=== PATIENT | male | born 1970 | race Caucasian/White ===

== ENCOUNTER → 2019-05-14 07:50 | Outpatient (BNVA) | payer OTHER, SELFPAY | PROVIDERS: PCP Nurse Practitioner Family; Visit Provider Nurse Practitioner Family | DX: Z00.00 Encounter for general adult medical examination without abnormal findings (principal); E11.9 Type 2 diabetes mellitus without complications; E78.5 Hyperlipidemia, unspecified; M54.5 Low back pain | CPT/HCPCS: 80053; 80061; 83036; 83721; 85025 ==

== ENCOUNTER 2019-10-20 09:18 | Outpatient (CLI) | payer BC, SELFPAY ==
--- NOTE | 2019-10-20 09:43 | XR_ITS ---
WS: [id number] LUMBAR SPINE TECHNIQUE: 3 views of the lumbar spine CLINICAL INFORMATION: low back pain COMPARISON: None. FINDINGS: Five [id number]-[id number] lumbar vertebral bodies. Disc space heights are well preserved. No compression f ractures. No spondylolisthesis. Visualized sacroiliac joints are normal. Normal visualized soft tissu es. Partially visualized bowel gas pattern is normal. XR/XR lumbar spine 2-3V* [id number] IMPRESSION: Normal lumbar spine.
--- NOTE | 2019-10-20 09:43 | XR_ITS ---
WS: [id number] CERVICAL SPINE TECHNIQUE: 3 views of the cervical spine CLINICAL INFORMATION: neck pain COMPARISON: None. FINDINGS: Straightening of the normal cervical lordosis. Normal C1-C2 articulation. Normal prevertebral soft ti ssues. Mild spondylitic changes. Normal dens. Normal C1-C2 articulation. XR/XR cervical spine 3V* [id number] IMPRESSION: Straightening of the normal cervical lordosis with mild spondylitic changes.
--- NOTE | 2019-10-20 09:43 | XR_ITS ---
WS: [id number] THORACIC SPINE TECHNIQUE: 3 views of the thoracic spine CLINICAL INFORMATION: mid back pain COMPARISON: None. FINDINGS: Mild thoracic curve convex left. No acute appearing compression fractures. Disc space size vertebral body heights are well-maintained. No acute thoracic spine findings. XR/XR thoracic spine 3V* [id number] IMPRESSION: Mild thoracic curve convex left. No acute thoracic spine findings.
== END 2019-10-20 09:19 | disposition home or self-care (01) ==
PROVIDERS: Family Provider Nurse Practitioner Family; PCP Nurse Practitioner Family; Visit Provider Nurse Practitioner Family
DX: M54.2 Cervicalgia (principal); M54.5 Low back pain; M54.6 Pain in thoracic spine
CPT/HCPCS: 72040; 72072; 72100

== ENCOUNTER → 2019-12-08 09:07 | Outpatient (BNVA) | payer BC, SELFPAY | PROVIDERS: Family Provider Nurse Practitioner Family; PCP Nurse Practitioner Family; Referring Provider Nurse Practitioner Family; Visit Provider Specialist | DX: G56.03 Carpal tunnel syndrome, bilateral upper limbs (principal); G56.21 Lesion of ulnar nerve, right upper limb | CPT/HCPCS: 95910 ==

== ENCOUNTER → 2019-12-09 13:13 | Outpatient (BNVA) | payer BC, SELFPAY | PROVIDERS: Family Provider Nurse Practitioner Family; PCP Nurse Practitioner Family; Visit Provider Psychiatry & Neurology Psychiatry | DX: F33.2 Major depressive disorder, recurrent severe without psychotic features (principal); F43.12 Post-traumatic stress disorder, chronic; F10.20 Alcohol dependence, uncomplicated | CPT/HCPCS: 99204 ==

== ENCOUNTER → 2020-01-06 07:35 | Outpatient (BNVA) | payer BC, SELFPAY | PROVIDERS: Family Provider Nurse Practitioner Family; PCP Nurse Practitioner Family; Visit Provider Psychiatry & Neurology Psychiatry | DX: F43.12 Post-traumatic stress disorder, chronic (principal); F33.2 Major depressive disorder, recurrent severe without psychotic features; F10.20 Alcohol dependence, uncomplicated | CPT/HCPCS: 99214 ==

== ENCOUNTER → 2020-03-10 07:49 | Outpatient (BNVA) | payer BC, SELFPAY | PROVIDERS: Family Provider Nurse Practitioner Family; PCP Nurse Practitioner Family; Visit Provider Psychiatry & Neurology Psychiatry | DX: F43.12 Post-traumatic stress disorder, chronic (principal); F33.2 Major depressive disorder, recurrent severe without psychotic features; F10.20 Alcohol dependence, uncomplicated | CPT/HCPCS: 99213 ==

== ENCOUNTER → 2020-03-15 11:07 | Outpatient (BNVA) | payer OTHER, SELFPAY | PROVIDERS: Family Provider Nurse Practitioner Family; PCP Nurse Practitioner Family; Visit Provider Nurse Practitioner Family | DX: E11.65 Type 2 diabetes mellitus with hyperglycemia (principal); M54.5 Low back pain; R10.9 Unspecified abdominal pain; G89.29 Other chronic pain; E78.5 Hyperlipidemia, unspecified; K21.9 Gastro-esophageal reflux disease without esophagitis | CPT/HCPCS: 80053; 80061; 81000; 82043; 83036; 85025 ==

== ENCOUNTER → 2020-03-18 07:54 | Outpatient (BNVA) | payer OTHER, SELFPAY | PROVIDERS: Family Provider Nurse Practitioner Family; PCP Nurse Practitioner Family; Visit Provider Counselor Mental Health | DX: F43.12 Post-traumatic stress disorder, chronic (principal); F33.2 Major depressive disorder, recurrent severe without psychotic features | CPT/HCPCS: 90834 ==

== ENCOUNTER 2020-03-25 08:16 | Outpatient (CLI) | payer OTHER, SELFPAY ==
--- NOTE | 2020-03-25 08:45 | US_ITS ---
WS: [id number] Complete ABDOMINAL ULTRASOUND HISTORY: R10.9 - Unspecified abdominal pain COMPARISON: 06/11/2012 Liver: 17.7 cm in length. Moderately enlarged liver. Moderate coarsened echotexture throughout the li page with loss of the normal portal triads. No bile duct dilatation or mass. Gallbladder: Normally distended with no gallstones, wall thickening or pericholecystic fluid. Gallbladder wall thickness: 0.2 cm. Pancreas: Normal size and echogenicity. CBD: 0.2 cm. Right kidney: 12.0 cm x 6.1 cm x 6.3 cm. No mass, cortical thickening or hydronephrosis. Left kidney: 12.5 cm x 5.9 cm x 6.4 cm. No mass, cortical thickening or hydronephrosis. Spleen: Normal size and echogenicity. Abdominal aorta and IVC are within normal limits. No ascites. US/US abdomen complete* [id number] IMPRESSION: 1. Study is somewhat limited by body habitus. 2. Negative gallbladder. 3. Moderate hepatomegaly with additional changes of hepatocellular disease or steatosis.
== END 2020-03-25 08:17 | disposition home or self-care (01) ==
LOC: RAD 08:21
PROVIDERS: PCP Nurse Practitioner Family; Visit Provider Nurse Practitioner Family
DX: R10.9 Unspecified abdominal pain (principal); R16.0 Hepatomegaly, not elsewhere classified
CPT/HCPCS: 76700

== ENCOUNTER → 2020-03-26 08:29 | Outpatient (BNVA) | payer OTHER, SELFPAY | PROVIDERS: Family Provider Nurse Practitioner Family; PCP Nurse Practitioner Family; Visit Provider Counselor Mental Health | DX: F43.12 Post-traumatic stress disorder, chronic (principal); F33.2 Major depressive disorder, recurrent severe without psychotic features | CPT/HCPCS: 90834 ==

== ENCOUNTER → 2020-04-02 08:42 | Outpatient (BNVA) | payer OTHER, SELFPAY | PROVIDERS: Family Provider Nurse Practitioner Family; PCP Nurse Practitioner Family; Visit Provider Counselor Mental Health | DX: F43.12 Post-traumatic stress disorder, chronic (principal); F33.2 Major depressive disorder, recurrent severe without psychotic features | CPT/HCPCS: 90832 ==

== ENCOUNTER → 2020-04-07 08:20 | Outpatient (BNVA) | payer OTHER, SELFPAY | PROVIDERS: Family Provider Nurse Practitioner Family; PCP Nurse Practitioner Family; Visit Provider Counselor Mental Health | DX: F43.12 Post-traumatic stress disorder, chronic (principal); F33.2 Major depressive disorder, recurrent severe without psychotic features | CPT/HCPCS: 90832 ==

== ENCOUNTER 2020-04-26 07:14 | Outpatient (CLI) | payer OTHER, SELFPAY ==
--- NOTE | 2020-04-26 07:18 | NM_ITS ---
WS: [id number] NUCLEAR MEDICINE HIDA SCAN CLINICAL INFORMATION: R10.10 - Upper abdominal pain, unspecified TECHNIQUE: Following intravenous administration of mCi of technetium 99m mebrofenin, images of the ab domen were obtained over the course of 60 minutes. Next, gallbladder ejection fraction was determined by obtaining preprandial and one-hour postprandial images of the gallbladder following oral ingestio n of Ensure. COMPARISON: None. FINDINGS: Normal hepatic uptake at 5 minutes. Gallbladder is visualized by 10 minutes. No evidence of acute cho lecystitis. Normal common bile duct and small bowel activity. No evidence of acute cholecystitis. No evidence of choledocholithiasis. Normal bladder ejection fraction 83% within normal limits. No evidence of chronic cholecystitis. NM/NM hepatobiliary w phar* [id number] IMPRESSION: 1. No evidence of acute or chronic cholecystitis. 2. Normal gallbladder ejection fraction 83% within normal limits.
--- NOTE | 2020-04-26 07:29 | XR_ITS ---
WS: [id number] Exam: XR lumbar spine 2-3V* [id number] Date/Time of Exam: 04/26/2020 8:55 AM Reason For Exam: M54.5 - Low back pain Comparison 10/20/2019. No fracture or dislocation. Spondylosis noted. Facet DJD at all levels. Disc spaces are relatively we ll maintained. Spinous and transverse processes are intact. XR/XR lumbar spine 2-3V* [id number] IMPRESSION: 1. Degenerative changes. No fracture or malalignment.
== END 2020-04-26 07:15 | disposition home or self-care (01) ==
LOC: NM 07:15
PROVIDERS: PCP Nurse Practitioner Family; Visit Provider Nurse Practitioner Family
DX: R10.10 Upper abdominal pain, unspecified (principal); M54.5 Low back pain
CPT/HCPCS: 72100; 78227; A9537

== ENCOUNTER → 2020-04-29 07:37 | Outpatient (BNVA) | payer OTHER, SELFPAY | PROVIDERS: Family Provider Nurse Practitioner Family; PCP Nurse Practitioner Family; Visit Provider Counselor Mental Health | DX: F43.12 Post-traumatic stress disorder, chronic (principal); F33.2 Major depressive disorder, recurrent severe without psychotic features; F10.20 Alcohol dependence, uncomplicated; F22 Delusional disorders | CPT/HCPCS: 90832 ==

== ENCOUNTER → 2020-05-17 09:41 | Outpatient (BNVA) | payer OTHER, SELFPAY | PROVIDERS: Family Provider Nurse Practitioner Family; PCP Nurse Practitioner Family; Visit Provider Psychiatry & Neurology Psychiatry | DX: F41.1 Generalized anxiety disorder (principal); F43.12 Post-traumatic stress disorder, chronic; F33.2 Major depressive disorder, recurrent severe without psychotic features; M54.5 Low back pain; F10.20 Alcohol dependence, uncomplicated | CPT/HCPCS: 99214 ==

== ENCOUNTER 2020-06-16 06:00 | Outpatient (RCR) | payer OTHER, SELFPAY | END 2020-07-02 23:59 | disposition home or self-care (01) | LOC: APT 06:00 | PROVIDERS: Family Provider Nurse Practitioner Family; PCP Nurse Practitioner Family; Referring Provider Nurse Practitioner Family; Visit Provider Nurse Practitioner Family | DX: M54.5 Low back pain (principal); G89.29 Other chronic pain | CPT/HCPCS: 97161 ==

== ENCOUNTER 2020-06-30 08:43 | Outpatient (CLI) | payer OTHER, SELFPAY ==
[2020-06-30] MEDS: iohexol 300 mg/mL 50 mL Btl PO (09:12)
[2020-06-30] MEDS: iohexol 300 mg/mL 100 mL Btl IV (09:29)
--- NOTE | 2020-06-30 09:30 | CT_ITS ---
WS: [id number] CT ABDOMEN CONTRAST TECHNIQUE: Contrast enhanced CT of the abdomen with coronal and sagittal reformatted images. CLINICAL INFORMATION: R10.10 - Upper abdominal pain, unspecified COMPARISON: None. DLP: 853.[address] scans at [facility] use at least one of these dose optimization techniques: automat ed exposure control; mA and/or kV adjustment per patient size (includes targeted exams where dose is matched to clinical indication); or iterative reconstruction. FINDINGS: Mild hepatomegaly. Diffuse fatty infiltration liver. Normal gallbladder. Normal portal vein and splen ic vein. Normal GE junction. Normal spleen. Lung bases are well aerated. Adrenal glands are normal. N ormal left renal parenchymal enhancement. Heterogeneously enhancing right renal mass measuring 3.5 x 3.7 x 2.5 cm suspicious for renal cell carcinoma. No hydronephrosis in either kidney. Both ureters ar e decompressed. No abdominal lymphadenopathy. Fat-containing umbilical hernia. CT/CT abdomen w con* [id number] IMPRESSION: 1. Hepatomegaly with diffuse fatty infiltration the liver. 2. Heterogeneously enhancing right renal mass suspicious for renal cell carcin angie in the dorsal upper pole right kidney. This measures approximately 3.5 x 3. 5 x 2.5 CM. Recommend urology consultation. 3. Normal gallbladder. 4. No abdominal lymphadenopathy. 5. Incidental tiny fat-containing buckle hernia.
== END 2020-06-30 08:44 | disposition home or self-care (01) ==
PROVIDERS: PCP Nurse Practitioner Family; Visit Provider Nurse Practitioner Family
DX: R10.10 Upper abdominal pain, unspecified (principal); K76.0 Fatty (change of) liver, not elsewhere classified; R16.0 Hepatomegaly, not elsewhere classified
CPT/HCPCS: 74160; 80053; 80061; 83036; 83721; Q9967

== ENCOUNTER → 2020-07-16 10:02 | Outpatient (BNVA) | payer OTHER, SELFPAY | PROVIDERS: Family Provider Nurse Practitioner Family; PCP Nurse Practitioner Family; Visit Provider Psychiatry & Neurology Psychiatry | DX: F41.1 Generalized anxiety disorder (principal); F10.20 Alcohol dependence, uncomplicated; F43.12 Post-traumatic stress disorder, chronic; F33.2 Major depressive disorder, recurrent severe without psychotic features; M54.5 Low back pain | CPT/HCPCS: 99214 ==

== ENCOUNTER → 2020-09-13 11:09 | Outpatient (BNVA) | payer OTHER, SELFPAY | PROVIDERS: Family Provider Nurse Practitioner Family; PCP Nurse Practitioner Family; Visit Provider Nurse Practitioner Family | DX: E11.65 Type 2 diabetes mellitus with hyperglycemia (principal); M54.5 Low back pain; G89.29 Other chronic pain; F41.1 Generalized anxiety disorder; K21.9 Gastro-esophageal reflux disease without esophagitis; E78.5 Hyperlipidemia, unspecified; R53.83 Other fatigue; N28.89 Other specified disorders of kidney and ureter | CPT/HCPCS: 80053; 80061; 82306; 82607; 83036; 84403; 84443; 85025 ==

== ENCOUNTER → 2020-09-28 12:02 | Outpatient (BNVA) | payer OTHER, SELFPAY | PROVIDERS: Family Provider Nurse Practitioner Family; PCP Nurse Practitioner Family; Visit Provider Urology | DX: N28.89 Other specified disorders of kidney and ureter (principal) | CPT/HCPCS: 80053; 81003; 85025; 87086 ==

== ENCOUNTER → 2020-10-08 09:39 | Outpatient (BNVA) | payer OTHER, SELFPAY | PROVIDERS: Family Provider Nurse Practitioner Family; PCP Nurse Practitioner Family; Visit Provider Urology | DX: Z20.822 Contact with and (suspected) exposure to COVID-19 (principal) | CPT/HCPCS: 87635 ==

== ENCOUNTER 2020-11-23 13:14 | Outpatient (CLI) | payer OTHER, SELFPAY ==
--- NOTE | 2020-11-23 13:20 | XR_ITS ---
WS: [id number] KUB, AP view, 11/23/2020 Clinical Data: R31.9 - Hematuria, unspecified Comparison: None Findings: No abnormal intraabdominal masses or calcifications are seen. There is no dilatated small bowel or ev idence of obstruction. There are radiopaque coils overlying the right kidney which may be from an interventional radiology t reatment of a renal cell carcinoma.. XR/XR KUB [id number] Impression: Radiopaque coils overlying right kidney.
[2020-11-23 14:00] LABS: Basophils # 0.1 10^3/uL (0.0-0.1); Basophils % 0.8 %; Eosinophils # 0.1 10^3/uL (0.0-0.8); Eosinophils % 1.4 %; Hematocrit 36.9 % (42.0-52.0); Hemoglobin 12.3 g/dL (11.7-16.6); Lymphocytes # 1.7 10^3/uL (0.8-4.8); Lymphocytes % 26.2 %; Mean Corpuscular HGB Conc 33.3 g/dL (30.0-36.0); Mean Corpuscular Hemoglobin 29.6 pg (28.0-34.0); Mean Corpuscular Volume 88.9 fl (80-94); Mean Platelet Volume 9.7 fL (7.4-10.4); Monocytes # 0.5 10^3/uL (0.2-0.9); Monocytes % 8.4 %; Neutrophils # 4.06 10^3/uL (1.8-7.7); Neutrophils % 62.9 %; Nucleated Red Blood Cells % 0 %; Platelet Count 224 10^3/cmm (130-400); Red Blood Count 4.15 10^6/uL (4.1-5.3); Red Cell Distribution Width 12.6 % (12.1-15.1); White Blood Count 6.5 10^3/uL (4.0-10.0)
[2020-11-23 14:09] LABS: Estmated Average Glucose 126
[2020-11-23 14:46] LABS: Blood Urine 3+ (Negative); Glucose Urine UA Norm (Normal); Ketones Urine Negative (Negative); Protein Urine Neg (Negative); Specific Gravity, Urine 1.015 (1.005-1.030); Urine Appearance Hazy (CLEAR); Urine Color Yellow (Yellow); pH Urine 5 (5-7)
[2020-11-23 14:47] LABS: Add Urine Culture? No; Bacteria Urine TRACE /hpf; Bilirubin Urine Neg (Negative); Leukocyte Esterase Urine Negative (Negative); Nitrate Urine Negative (Negative); RBC Urine 0-4 /hpf (0-2); Squamous Epithelial Cell Urine 0-4 /hpf (0-5); Urobilinogen Urine Norm (Negative)
[2020-11-23 14:53] LABS: Vitamin B12 319 pg/mL (232-1245)
[2020-11-23 14:54] LABS: 25 Hydroxy Vitamin D 30 ng/mL (30-100); Alanine Aminotransferase 6 U/L (0-41); Albumin Level 4.2 g/dL (3.5-5.2); Alkaline Phosphatase 81 IU/L (40-130); Anion Gap 13.7 (5-19); Aspartate Amino Transferase 9 U/L (0-40); Blood Urea Nitrogen 16 mg/dL (6-20); Calcium 9.2 mg/dL (8.5-10.5); Carbon Dioxide 27 mmol/L (22-29); Chloride 99 mmol/L (98-107); Chol HDL Ratio 4.66 mg/dL (1.0-5.00); Cholesterol 163 mg/dL (0-200); Globulin 2.8 g/dL (1.3-4.6); Glomerular Filtration Rate 53.9 mL/min (90-130); Glucose 197 mg/dL (65-115); HDL Cholesterol 35 mg/dL (60-100); LDL Cholesterol Calculated 77 mg/dL (50-129); Osmolality Calculated 287 mOsm/kg (285-295); Potassium 4.7 mmol/L (3.5-5.1); Sodium 135 mmol/L (136-145); Thyroid Stimulating Hormone 1.31 uIU/mL (0.27-4.20); Total Bilirubin 0.2 mg/dL (0.15-1.2); Triglycerides 256 mg/dL (0-150)
== END 2020-11-23 13:15 | disposition home or self-care (01) ==
PROVIDERS: PCP Nurse Practitioner Family; Visit Provider Nurse Practitioner Family
DX: R31.9 Hematuria, unspecified (principal)
CPT/HCPCS: 36415; 74018; 80053; 80061; 81001; 81003; 82306; 82607; 83036; 84443; 85025; 87086

== ENCOUNTER → 2020-12-27 09:33 | Outpatient (BNVA) | payer OTHER, SELFPAY | PROVIDERS: PCP Nurse Practitioner Family; Visit Provider Urology | DX: Z01.812 Encounter for preprocedural laboratory examination (principal); Z20.822 Contact with and (suspected) exposure to COVID-19 | CPT/HCPCS: 87635 ==

== ENCOUNTER → 2021-01-07 09:21 | Outpatient (BNVA) | payer OTHER, SELFPAY | PROVIDERS: PCP Nurse Practitioner Family; Visit Provider Nurse Practitioner Family | DX: R31.9 Hematuria, unspecified (principal); N28.89 Other specified disorders of kidney and ureter | CPT/HCPCS: 80053; 81003; 87086; 87106 ==

== ENCOUNTER 2021-03-04 16:12 | Emergency (ER) | payer OTHER, SELFPAY ==
[2021-03-04 16:20] VITALS: BP 145/76; PULSE 65; RESP 26; TEMP 36.7; O2SAT 84; BMI 30.7
[2021-03-04 16:24] VITALS: O2SAT 94
[2021-03-04] MEDS: ondansetron 2 mg/ML SDV 2 mL 4 MG IVP (17:23)
[2021-03-04] MEDS: sodium chloride 0.9% 1,000 ML 999 ML IV ×2 (17:23→19:50)
[2021-03-04 18:00] VITALS: O2SAT 86
--- NOTE | 2021-03-04 18:57 | XRR_ITS ---
PROCEDURE INFORMATION: Exam: XR Chest Exam date and time: 03/04/2021 6:57 PM Age: 50 years old Clinical indication: Cough and shortness of breath; Patient HX: Dyspnea; Short of breath TECHNIQUE: Imaging protocol: XR of the chest. Views: 1 view. COMPARISON: CR XR KUB [id number] 11/23/2020 1:28 PM FINDINGS: Lungs: Multifocal peripheral airspace opacities are noted in the lungs concerning for pneumonic infiltrates including COVID-19 pneumonia. Pleural spaces: Unremarkable. No pleural effusion. No pneumothorax. Heart/Mediastinum: The heart is enlarged. Bones/joints: No acute abnormality. Mild dextroscoliosis. XR/XR chest 1V portable [id number] IMPRESSION: Multifocal peripheral airspace opacities are noted in the lungs concerning for pneumonic infiltrates including COVID-19 pneumonia.
[2021-03-04 19:04] LABS: Basophils % 0.1 %; Hematocrit 40.1 % (42.0-52.0); Hemoglobin 13.8 g/dL (11.7-16.6); Lymphocytes # 0.6 10^3/uL (0.8-4.8); Lymphocytes % 7.5 %; Mean Corpuscular HGB Conc 34.4 g/dL (30.0-36.0); Mean Corpuscular Volume 84.2 fl (80-94); Monocytes # 0.4 10^3/uL (0.2-0.9); Monocytes % 4.2 %; Neutrophils # 7.38 10^3/uL (1.8-7.7); Neutrophils % 87.5 %; Nucleated Red Blood Cells % 0 %; Platelet Count 223 10^3/cmm (130-400); Red Blood Count 4.76 10^6/uL (4.1-5.3); Red Cell Distribution Width 12.4 % (12.1-15.1); White Blood Count 8.4 10^3/uL (4.0-10.0)
[2021-03-04 19:17] LABS: Anion Gap 20.4 (5-19); Blood Urea Nitrogen 24 mg/dL (6-20); Calcium 8.2 mg/dL (8.5-10.5); Carbon Dioxide 20 mmol/L (22-29); Chloride 91 mmol/L (98-107); Glomerular Filtration Rate 53.9 mL/min (90-130); Glucose 292 mg/dL (65-115); Osmolality Calculated 279 mOsm/kg (285-295); Potassium 4.4 mmol/L (3.5-5.1); Sodium 127 mmol/L (136-145)
[2021-03-04 19:48] LABS: Adenovirus Not Detected (NOT DETECT); Chlamydia Pneumoniae Not Detected (NOT DETECT); Coronavirus 229E,HKU1,NL63,OC4 Not Detected (NOT DETECT); Human Metapneumovirus Not Detected (NOT DETECT); Human Rhinovirus/Enterovirus Not Detected (NOT DETECT); Influenza A Not Detected (NOT DETECT); Influenza A H1 Not Detected (NOT DETECT); Influenza A H1-2009 Not Detected (NOT DETECT); Influenza A H3 Not Detected (NOT DETECT); Influenza B Not Detected (NOT DETECT); Mycoplasma Pneumoniae Not Detected (NOT DETECT); Parainfluenza Virus Type 1 Not Detected (NOT DETECT); Parainfluenza Virus Type 2 Not Detected (NOT DETECT); Parainfluenza Virus Type 3 Not Detected (NOT DETECT); Parainfluenza Virus Type 4 Not Detected (NOT DETECT); Respiratory Syncytial Virus A Not Detected (NOT DETECT); Respiratory Syncytial Virus B Not Detected (NOT DETECT); SARS-COV-2 Detected (NOT DETECT)
--- NOTE | 2021-03-04 20:03 | W.ED.GENADLT ---
HPI - General Adult General: Chief complaint: COVID symptoms Stated complaint: NO TASTE OR SMELL, N/V, SOB, DIARRHEA Time Seen by Provider: 03/04/21 17:13 History of Present Illness: HPI narrative: CC: Shortness of breath, fever and generalized weakness HPI: This is a [50]yo patient w/ hx of HTN, presenting to the ED with malaise, generalized weakness, cough sputum production, and fever at home x 10days. Since onset of symptoms, has had some shortness of breath and decreased PO intake. NO recent travel. Endorses no sick contacts around. Reports mild nausea, denies vomiting and diarrhea. Patient reports mild decreased appetite. Denies chest pain, diaphoresis, other GI or complaints. Denies any pleuritic chest pain, recent surgery/immobilization/travel, or hematemesis or hx of VTE in the past. Onset: 10 days ago Duration: ongoing for the last 10 days Location: home Severity: moderate Review of Systems Narrative: Constitutional: +subjective fever, +generalized weakness HEENT: No vision changes CV: No chest pain, no palpitations PULM: +cough, +dyspnea. GI: No abdominal pain, +N/-V/-D. : No dysuria MSKEL: No muscle pain SKIN: No new rashes, no lesions. NEURO: No headache, no focal weakness. HEME: No visible bruises PSYCH: Normal mood PFSH ED PFSH: Medical History (Updated 03/04/21 @ 19:57 by Manuela Hunter MD) Diabetes mellitus GERD (gastroesophageal reflux disease) Hyperlipidemia Psychiatric care Renal mass Surgical History Hx of rotator cuff surgery (~2009) Family History Family/Other Diabetes Hypertension Heart disease Social History Quit status (tobacco): has quit using tobacco Year quit tobacco: a long time Second hand smoke exposure: Yes Alcohol intake: never Lives independently: Yes Household members: spouse Marital status: 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 History of recent travel: No Current gender identity: Male Physical Exam Narrative: EXAM NARRATIVE: Head: Atraumatic Eyes: PERRL, conjunctiva without injection ENT: Mucous membrane moist NECK: Supple without lymphadenopathy LUNGS: Coarse lung sounds CV: RRR ABDOMEN: Soft, nontender EXTREMITY: Normal ROM SKIN: No rash or erythema NEURO: Awake and alert. No focal motor deficits. PSYCH: Normal mood and affect. Course Vital Signs: Vital signs: Vital Signs Temperature 98.1 F 03/04/21 16:20 Pulse Rate 65 03/04/21 16:20 Respiratory Rate 26 H 03/04/21 16:20 Blood Pressure 145/76 03/04/21 16:20 Pulse Oximetry 86 L 03/04/21 18:00 MDM - General Adult MDM Narrative: Medical decision making narrative: [50]yo patient presenting to the ED with shortness of breath, cough, and malaise concerning for COVID pneumonia. Given History, Exam, and Workup presentation most consistent with pneumonia.Presentation not consistent with PE, COPD exacerbation, Pneumothorax, TB, Atypical ACS, Esophageal Rupture, Toxic Exposure, Foreign Body Airway Obstruction. Workup: CXR Chest, COVID PCR, basic blood work Intervention: Tylenol 1gram, PO challenge, serial reassessment, oxygen, decadron [8:59pm] On reassessment, XR findings of ground-glass opacity. Findings consistent with COVID. Afebrile currently. Patient continues to sat at 95% on 5?L oxygen. Given concerns for possible respiratory decompensation, I have offered patient admission for serial/close observation in the emergency room. Cr of 1.4 likely VERNON. Patient received 2L of IVF. At [8:06pm], patient declined admission citing strong desire to go home on home oxygen. I have discussed the risks of leaving hospital today including risks of sudden pulmonary decompensation leading to severe respiratory distress and even . Patient verbalizes understanding the consequence of the risks of leaving the hospital today and alternative including staying for serial observation. I have offered patient outpatient oxygen tank/supply and portable pulse ox with proper instruction to use at home. Patient agrees to monitor oxygen saturation and to come back to the ED if there is any drops in pulse ox reading despite oxygen use. In addition, I have given patient strict follow up with PCP in 48-72 hrs for reevalutaion. Patient verbalizes understanding of all components of our discussion today and reassures me of follow up with PCP closely and will come back if his number worsens. I have given patient follow up with our manager professional development to be seen by a PCP in the next 48-72 hrs. Patient aware of a call from our manager professional development to schedule for appointment(s) and verbalizes understanding of the importance of following up. Rx tylenol PRN fever/pain, zofran PRN nausea/vomiting, maalox and pepcid PRN dyspepsia, prednisone 50mg x 5 days for covid Disposition: Discharge. Patient is given strict return precautions for any worsening dypsnea, changes in pulse ox numbers, any worsening fatigue, dehydration, generalized weakness, altered mental status, or any new or concerning issues. Lab Data: Labs: Lab Results 03/04/21 03/04/21 03/04/21 17:08 17:08 17:20 WBC 8.4 10^3/uL 10^3/ uL (4.0-10.0) RBC 4.76 10^6/uL 10^6 /uL (4.1-5.3) Hgb 13.8 g/dL g/dL (11.7-16.6) Hct 40.1 % L % (42.0-52.0) MCV 84.2 fl fl (80-94) MCH 29.0 pg pg (28.0-34.0) MCHC 34.4 g/dL g/dL (30.0-36.0) RDW 12.4 % % (12.1-15.1) Plt Count 223 10^3/cmm 10^3 /cmm (130-400) MPV 12.0 fL H fL (7.4-10.4) Neut % (Auto) 87.5 % % Lymph % (Auto) 7.5 % % Mason % (Auto) 4.2 % % Eos % (Auto) 0.0 % % Baso % (Auto) 0.1 % % Neut # (Auto) 7.38 10^3/uL 10^3 /uL (1.8-7.7) Lymph # (Auto) 0.6 10^3/uL L 10^ 3/uL (0.8-4.8) Mason # (Auto) 0.4 10^3/uL 10^3/ uL (0.2-0.9) Eos # (Auto) 0.0 10^3/uL 10^3/ uL (0.0-0.8) Baso # (Auto) 0.0 10^3/uL 10^3/ uL (0.0-0.1) Nucleated RBC % (a uto) 0 % % Nucleated RBCs # 0.0 /100WBC /100W BC Sodium 127 mmol/L L mmol /L (136-145) Potassium 4.4 mmol/L mmol/L (3.5-5.1) Chloride 91 mmol/L L mmol/ L (98-107) Carbon Dioxide 20 mmol/L L mmol/ L (22-29) Anion Gap 20.4 H (5-19) BUN 24 mg/dL H mg/dL (6-20) Creatinine 1.4 mg/dL H mg/dL (0.7-1.2) GFR Calculation 53.9 mL/min L mL/ min (90-130) Glucose 292 mg/dL H mg/dL (65-115) Calculated Osmolal ity 279 mOsm/kg L mOs m/kg (285-295) Calcium 8.2 mg/dL L mg/dL (8.5-10.5) Coronavirus 229E ( PCR) Not detected (NOT DETECT) SARS-CoV-2 (PCR) Detected A (NOT DETECT) Imaging Data^: Other Imaging: Radiologist's impression: [address] [id number] ReportSigned Patient: Chau Mauricio #: [id number]: 1970Acct#:[id number]/Sex: 50 / MADM Date: 03/04/21[facility]Attending Dr: Ordering Provider/Ordering MD: Manuela Hunter MD Date of Service: 03/04/21 Procedure(s): XR chest 1V portable [id number] Accession Number(s): [id number] Report Number: [id number] PROCEDURE INFORMATION: Exam: XR Chest Exam date and time: 03/04/2021 6:57 PM Age: 50 years old Clinical indication: Cough and shortness of breath; Patient HX: Dyspnea; Short of breath TECHNIQUE: Imaging protocol: XR of the chest. Views: 1 view. COMPARISON: CR XR KUB [id number] 11/23/2020 1:28 PM FINDINGS: Lungs: Multifocal peripheral airspace opacities are noted in the lungs concerning for pneumonic infiltrates including COVID-19 pneumonia. Pleural spaces: Unremarkable. No pleural effusion. No pneumothorax. Heart/Mediastinum: The heart is enlarged. Bones/joints: No acute abnormality. Mild dextroscoliosis. XR/XR chest 1V portable [id number] IMPRESSION: Multifocal peripheral airspace opacities are noted in the lungs concerning for pneumonic infiltrates including COVID-19 pneumonia. Dictated By:Jimmy Hollingsworthigned By:Megan Hollingsworth Date/Time:03/04/211948DD/ 56 Discharge Plan Discharge Patient Disposition: Home Clinical Impression: Cough, Dyspnea, Generalized weakness, Diarrhea Condition: Stable Prescriptions: New acetaminophen 500 mg tablet 500 mg PO Q6H PRN (Reason: pain) 5 Days Qty: 20 RF: 0 Zofran 4 mg tablet 4 mg PO TID PRN (Reason: nausea and vomiting) 4 Days Qty: 12 RF: 0 Pepcid 20 mg tablet 20 mg PO BID PRN (Reason: abdominal pain) 10 Days Qty: 20 RF: 0 prednisone 50 mg tablet 50 mg PO DAILY 5 Days Qty: 5 RF: 0 No Action metformin 1,000 mg tablet See Rx Instructions .ROUTE .COMPLEX Qty: 60 RF: 2 lidocaine 5 % adhesive patch,medicated 1 patch topical DAILY Qty: 30 RF: 2 bupropion HCl [Wellbutrin XL] 300 mg tablet extended release 24 hr 300 mg PO QAM Qty: 30 RF: 2 buspirone 5 mg tablet 5 mg PO TID Qty: 90 RF: 2 fluoxetine [Prozac] 40 mg capsule 80 mg PO QAM Qty: 60 RF: 2 hydroxyzine HCl 50 mg tablet 50 mg PO QID PRN (Reason: anxiety) Qty: 120 RF: 2 prazosin 5 mg capsule 5 mg PO .HS Qty: 30 RF: 2 propranolol 20 mg tablet 20 mg PO TID PRN (Reason: anxiety) Qty: 90 RF: 2 trazodone 100 mg tablet 300 mg PO .HS Qty: 90 RF: 2 diclofenac sodium 75 mg tablet,delayed release (DR/EC) 75 mg PO BID PRN (Reason: pain) Qty: 60 RF: 5 cyclobenzaprine 10 mg tablet 10 mg PO TID PRN (Reason: muscle spasm) Qty: 30 RF: 0 mupirocin 2 % ointment 1 applic topical BID Qty: 22 RF: 0 oxybutynin chloride 5 mg tablet 5 mg PO TID RF: 0 tramadol 50 mg tablet 50 mg PO TID PRN (Reason: pain) 30 Days Qty: 60 RF: 0 (DME) four point cane See Rx Instructions .Route .MEDSUPPLY Qty: 1 RF: 0 (DME) catheter leg bags regular and large See Rx Instructions .Route .MEDSUPPLY Qty: 10 RF: 0 omega-3 acid ethyl esters [Lovaza] 1 gram capsule 2 cap PO BID 30 Days Qty: 120 RF: 2 Jardiance 25 mg tablet See Rx Instructions .ROUTE .COMPLEX Qty: 30 RF: 2 glipizide 10 mg tablet See Rx Instructions .ROUTE .COMPLEX Qty: 60 RF: 2 gemfibrozil 600 mg tablet See Rx Instructions .ROUTE .COMPLEX Qty: 30 RF: 2 esomeprazole magnesium 40 mg capsule,delayed release(DR/EC) See Rx Instructions .ROUTE .COMPLEX Qty: 30 RF: 2 lovastatin 20 mg tablet See Rx Instructions .ROUTE .COMPLEX Qty: 30 RF: 2 fluconazole [Diflucan] 150 mg tablet 150 mg PO DAILY Qty: 1 RF: 0 Discharge Orders: Discharge ED (Routine); Ordered 03/04/21 Ordered By: Manuela Hunter Other Ambulatory Orders: DME: Oxygen (Order) Location: None Selected Ordered By: Manuela Hunter Referrals: Clare Holm, APPLICATION SECURITY ARCHITECT [Primary Care Provider] - Discharge Diet: Advance as tolerated Discharge Activity: Resume usual activity Patient Instructions: COVID-19 (Coronavirus Disease 2019) (ED) Activity Restrictions/Additional Instructions: Come back to the emergency room if your symptoms worsen, have any shortness of breath, fever/chills, dehydration, inability tolerate p.o., any difficulty breathing, or any new or concerning complaints. Please return the emergency room if your pulse ox reads less than 90% while you are on 5L of NC. Coding Level of Care Code ED Editing Computer Publisher for Vicky Shi
[2021-03-04] MEDS: dexamethasone 10 mg/mL INJ 6 MG IVP (21:15)
[2021-03-04 21:51] VITALS: BP 153/78; PULSE 78; RESP 18; O2SAT 94
== END 2021-03-04 21:53 | disposition home or self-care (01) ==
PROVIDERS: Emergency Provider Emergency Medicine; PCP Nurse Practitioner Family
DX: U07.1 COVID-19 (principal); Z79.84 Long term (current) use of oral hypoglycemic drugs; E11.9 Type 2 diabetes mellitus without complications; E78.5 Hyperlipidemia, unspecified; Z87.891 Personal history of nicotine dependence
CPT/HCPCS: 71045; 80048; 85025; 87635; 96361; 96374; 96375; 99283; J1100; J2405; J7030

== ENCOUNTER 2021-03-06 10:57 | Inpatient (IN) | payer OTHER, SELFPAY ==
[2021-03-06] VITALS (13 sets, daily range): BP systolic 143–166; BP diastolic 75–79; PULSE 51–74; RESP 16–24; TEMP 37.1; O2SAT 70–97; BMI 30.4; BMI 31.8
--- NOTE | 2021-03-06 11:10 | W.ED.SOB ---
HPI - SOB/Dyspnea General: Chief Complaint: COVID symptoms Stated Complaint: DIFF BREATHING/ COVID + Time Seen by Provider: 03/06/21 11:10 History of Present Illness: HPI Narrative: Mr. Mauricio is a 50-year-old gentleman with significant past medical history of hypertension, hyperlipidemia, diabetes, and psychiatric disorder presents to the emergency department due to shortness of breath. Symptom onset was a little after 2 weeks ago. He initially had fairly typical Covid symptoms and has tested positive for Covid. He endorses starting symptoms of headache, body aches, subjective fevers chills, diarrhea, cough, and shortness of breath. At maximal intensity symptoms were moderate to severe. Most of his symptoms subsequently improved with the past few days with exception of shortness of breath. He was seen in the emergency department on 03/04 and discharged with significant requirement home oxygen at that time secondary to hypoxemia in the context of Covid pneumonia. His shortness of breath has continued to worsen. He still has nonproductive cough. He describes marked dyspnea with minimal exertion. No other significant change to health, exacerbating, or alleviating factors identified. Review of Systems General: Reports: 10 or more systems reviewed and unremarkable except in HPI and below PFSH ED PFSH: Medical History Diabetes mellitus GERD (gastroesophageal reflux disease) Hyperlipidemia Psychiatric care Renal mass Surgical History Hx of rotator cuff surgery (~2009) Family History Family/Other Diabetes Hypertension Heart disease Social History Quit status (tobacco): has quit using tobacco Year quit tobacco: a long time Second hand smoke exposure: Yes Alcohol intake: never Lives independently: Yes Household members: spouse Marital status: 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 Eyes - PERRL, no conjunctival injection ENMT - Atraumatic external nose and ears. Dry mucous membranes NECK - supple. trachea midline CARDIOVASCULAR - bradycardic rate and regular rhythm. Normal peripheral perfusion. No peripheral edema RESPIRATORY - coarse to auscultation bilaterally worse on the right. Tachypnea at rest. Patient hypoxemic at approximately 70% on room air. Increased work of breathing present which becomes marked with minimal exertion. ABDOMEN/GI - Nontender/Nondistended. MSK - Extremities without obvious deformity or tenderness to palpation SKIN - Warm, Dry NEURO - alert and appropriately oriented. Moves all extremities equally. Course ED course: - Patient was seen and evaluated by me at bedside - Patient placed on cardiac monitors, IV access obtained - Initial evaluation notable for ill appearance as above, supplemental oxygen in place. Patient reports inability to breathe through his nose chronically and therefore will be left on nonrebreather mask at 15 L/min. - Labs notable for no leukocytosis or other significant hematologic abnormality. Metabolic panel notable for likely dehydration with low sodium, chloride, decreased bicarb and mildly increased anion gap. Procalcitonin is negative. Troponin is negative with greater than 6 hours of symptoms. - Imaging notable for bilateral opacities consistent with Covid pneumonia, similar to prior x-ray - Upon serial reexamination after treatment the patient was similar - Based on patient history, evaluation, labs, and imaging as interpreted the most likely cause of the patient's condition is Covid pneumonia with hypoxemia - The results of ED evaluation were discussed with the patient including plan for admission due to requirement for level of care not available if discharged to prevent significant worsening/deterioration. - Hospitalist service contacted and agreed admit the patient. After discussion remdesivir and Decadron ordered. D-dimer ordered and pending at time of admission to be followed up by admitting physician. - Patient was admitted without further deterioration or significant events. Vital Signs: Vital signs: Vital Signs Temperature 97.8 F 03/10/21 15:24 Pulse Rate 107 H 03/10/21 15:55 Respiratory Rate 18 03/10/21 15:52 Blood Pressure 114/71 03/10/21 15:24 Pulse Oximetry 96 03/10/21 15:52 MDM - SOB/Dyspnea MDM Narrative: Medical decision making narrative: History of Covid with new oxygen requirement. Roughly 2 weeks of symptoms overall with most typical Covid symptoms improving however shortness of breath persisting. Seen previously and trialed on home oxygen. Marked dyspnea on exertion, failed to improve after previously being seen. Warrants inpatient admission for Covid pneumonia with acute hypoxic respiratory failure requiring 15 L with no history of baseline oxygen requirement.. Medical Records: Attestation: I reviewed the patient's medical records. Lab Data: Attestation: I reviewed the patient's lab results. Labs: Lab Results 03/06/21 03/06/21 03/06/21 11:10 11:28 11:28 WBC 9.2 10^3/uL 10^3/ uL (4.0-10.0) RBC 4.72 10^6/uL 10^6 /uL (4.1-5.3) Hgb 13.6 g/dL g/dL (11.7-16.6) Hct 39.4 % L % (42.0-52.0) MCV 83.5 fl fl (80-94) MCH 28.8 pg pg (28.0-34.0) MCHC 34.5 g/dL g/dL (30.0-36.0) RDW 12.3 % % (12.1-15.1) Plt Count 278 10^3/cmm 10^3 /cmm (130-400) MPV 10.6 fL H fL (7.4-10.4) Neut % (Auto) 85.9 % % Lymph % (Auto) 6.7 % % [place] % (Auto) 6.8 % % Eos % (Auto) 0.0 % % Baso % (Auto) 0.1 % % Neut # (Auto) 7.87 10^3/uL H 10 ^3/uL (1.8-7.7) Lymph # (Auto) 0.6 10^3/uL L 10^ 3/uL (0.8-4.8) [place] # (Auto) 0.6 10^3/uL 10^3/ uL (0.2-0.9) Eos # (Auto) 0.0 10^3/uL 10^3/ uL (0.0-0.8) Baso # (Auto) 0.0 10^3/uL 10^3/ uL (0.0-0.1) Nucleated RBC % (a uto) 0 % % Nucleated RBCs # 0.0 /100WBC /100W BC Specimen Type Arterial Sample Site Radial, right ABG pH 7.43 (7.35-7.45) ABG pCO2 32.6 mmHg L mmHg (35-45) ABG pO2 96.6 mmHg mmHg (80.0-100.0) ABG HCO3 21.8 mmol/L L mmo l/L (22-26) ABG Base Excess -1.7 mmol/L mmol/ L (-2.0-2.0) John Test Pos Hematocrit 43.5 % % (42-52) O2 Delivery Device Nrb O2 Liters/Min 15.0 % % FiO2 100.0 % % Relief Cook ID [place] Sodium 132 mmol/L L mmol /L (136-145) Potassium 4.8 mmol/L mmol/L (3.5-5.1) Chloride 97 mmol/L L mmol/ L (98-107) Carbon Dioxide 17 mmol/L L mmol/ L (22-29) Anion Gap 22.8 H (5-19) BUN 29 mg/dL H mg/dL (6-20) Creatinine 1.1 mg/dL mg/dL (0.7-1.2) GFR Calculation 71.1 mL/min L mL/ min (90-130) Glucose 275 mg/dL H mg/dL (65-115) Calculated Osmolal ity 290 mOsm/kg mOsm/ kg (285-295) Calcium 7.8 mg/dL L mg/dL (8.5-10.5) Total Bilirubin 0.4 mg/dL mg/dL (0.15-1.2) AST 19 U/L U/L (0-40) ALT 16 U/L U/L (0-41) Alkaline Phosphata se 58 IU/L IU/L (40-130) Troponin T Baselin e C-Reactive Protein 26.3 mg/L H mg/L (0.0-4.9) NT-Pro-B Natriuret Pep 1367 pg/mL H pg/m L (0-125) Total Protein 6.0 g/dL L g/dL (6.6-8.7) Albumin 2.9 g/dL L g/dL (3.5-5.2) Globulin 3.1 g/dL g/dL (1.3-4.6) Procalcitonin 0.10 ng/mL ng/mL (0-0.5) 03/06/21 11:28 WBC RBC Hgb Hct MCV MCH MCHC RDW Plt Count MPV Neut % (Auto) Lymph % (Auto) [place] % (Auto) Eos % (Auto) Baso % (Auto) Neut # (Auto) Lymph # (Auto) [place] # (Auto) Eos # (Auto) Baso # (Auto) Nucleated RBC % (a uto) Nucleated RBCs # Specimen Type Sample Site ABG pH ABG pCO2 ABG pO2 ABG HCO3 ABG Base Excess John Test Hematocrit O2 Delivery Device O2 Liters/Min FiO2 Relief Cook ID Sodium Potassium Chloride Carbon Dioxide Anion Gap BUN Creatinine GFR Calculation Glucose Calculated Osmolal ity Calcium Total Bilirubin AST ALT Alkaline Phosphata se Troponin T Baselin e 12 ng/L ng/L (0-15) C-Reactive Protein NT-Pro-B Natriuret Pep Total Protein Albumin Globulin Procalcitonin EKG Data^: EKG 1: Attestation: I personally reviewed and interpreted this EKG as follows: EKG Interpretation Date: 03/06/19 EKG interpretation time: 13:55 Interpretation: Twelve-lead EKG shows a regular rhythm at a rate of 61. MI interval 151, QRS duration 88, QTc 445. Normal axis. Interpretation: Sinus rhythm. 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
--- NOTE | 2021-03-06 11:16 | XRR_ITS ---
PROCEDURE INFORMATION: Exam: XR Chest Exam date and time: 03/06/2021 11:16 AM Age: 50 years old Clinical indication: Shortness of breath; Additional info: Covid, hypoxemia TECHNIQUE: Imaging protocol: XR of the chest. Views: 1 view. Total images: 1 COMPARISON: CR (CHEST, ) 03/04/2021 7:05 PM FINDINGS: Lungs: Bilateral pulmonary opacities are again noted and appear unchanged. Pleural spaces: Unremarkable. No pleural effusion. No pneumothorax. Heart/Mediastinum: Heart size is stable when compared to the prior exam. Bones/joints: Osseous structures are unchanged from the prior exam. XR/XR chest 1V portable [id number] IMPRESSION: Bilateral pulmonary opacities are again noted and appear unchanged.
--- NOTE | 2021-03-06 11:21 | ECG_ITS ---
[facility] Test Date: 2021-03-06 Pat Name: Chau Mauricio Department: Room: Gender: Male Manager Spanish: : 1970 Requested By: Mukund Rodriguez Order Number: [id number] Manisha MD: Kristofer Schwartz M.D. Measurements Intervals [place] Rate: 61 P: 31 CO: 151 QRS: 24 QRSD: 88 T: 54 QT: 442 QTc: 446 Interpretive Statements SINUS RHYTHM No previous ECG available for comparison Electronically Signed On 03-06-2021 20:21:20 CHIEF OF STAFF by Kristofer Schwartz M.D. [email or web address] [employer]/[id number]
[2021-03-06 11:22] LABS: ABG PCO2 32.6 mmHg (35-45); ABG PH Result 7.43 (7.35-7.45); Arterial Blood Gas Hematocrit 43.5 % (42-52); Base Excess ABG -1.7 mmol/L (-2.0-2.0); Blood Gas Allen Test Pos; Blood Gas Operator Identificat MONRO; Blood Gas Sample Site Radial, right; Blood Gas Sample Type Arterial; HCO3 ABG 21.8 mmol/L (22-26); Oxygen Device NRB; PO2 ABG 96.6 mmHg (80.0-100.0)
[2021-03-06] MEDS: sodium chloride 0.9% 500 ML IV (11:33)
[2021-03-06 11:38] LABS: Basophils % 0.1 %; Hematocrit 39.4 % (42.0-52.0); Hemoglobin 13.6 g/dL (11.7-16.6); Lymphocytes # 0.6 10^3/uL (0.8-4.8); Lymphocytes % 6.7 %; Mean Corpuscular HGB Conc 34.5 g/dL (30.0-36.0); Mean Corpuscular Hemoglobin 28.8 pg (28.0-34.0); Mean Corpuscular Volume 83.5 fl (80-94); Mean Platelet Volume 10.6 fL (7.4-10.4); Monocytes # 0.6 10^3/uL (0.2-0.9); Monocytes % 6.8 %; Neutrophils # 7.87 10^3/uL (1.8-7.7); Neutrophils % 85.9 %; Nucleated Red Blood Cells % 0 %; Platelet Count 278 10^3/cmm (130-400); Red Blood Count 4.72 10^6/uL (4.1-5.3); Red Cell Distribution Width 12.3 % (12.1-15.1); White Blood Count 9.2 10^3/uL (4.0-10.0)
[2021-03-06 12:07] LABS: Troponin(5th) Baseline 12 ng/L (0-15)
[2021-03-06 12:12] LABS: NT Pro B Type Natriuretic Pept 1367 pg/mL (0-125)
[2021-03-06 12:23] LABS: Alanine Aminotransferase 16 U/L (0-41); Albumin Level 2.9 g/dL (3.5-5.2); Alkaline Phosphatase 58 IU/L (40-130); Blood Urea Nitrogen 29 mg/dL (6-20); C Reactive Protein 26.3 mg/L (0.0-4.9); Calcium 7.8 mg/dL (8.5-10.5); Carbon Dioxide 17 mmol/L (22-29); Chloride 97 mmol/L (98-107); Globulin 3.1 g/dL (1.3-4.6); Glomerular Filtration Rate 71.1 mL/min (90-130); Glucose 275 mg/dL (65-115); Osmolality Calculated 290 mOsm/kg (285-295); Sodium 132 mmol/L (136-145); Total Bilirubin 0.4 mg/dL (0.15-1.2)
[2021-03-06 12:30] LABS: Anion Gap 22.8 (5-19); Aspartate Amino Transferase 19 U/L (0-40); Potassium 4.8 mmol/L (3.5-5.1)
--- NOTE | 2021-03-06 13:58 | PM.HP ---
Providers/Chief Complaint Primary Care Provider: ALEKSANDR Jaffe Chief Complaint: DIFF BREATHING/ COVID + History of Present Illness Chau Mauricio is a 50 year old male with a past medical history of noninsulin-dependent type 2 diabetes mellitus, GERD, hyperlipidemia, depression anxiety, who presents to [facility] due to headache, body aches, subjective fevers, cough, shortness of breath. Has not received Covid vaccinations. Has not received flu vaccinations. No history of COPD. No history of smoking, no history of CAD. No history of strokes. No calf pain. No calf swelling. No recent travel. He tested positive for Covid on March 04, 2021, he was discharged home with oxygen, 6 L, patient declined admission at that time. Patient tells me that since then he continues to have increasingly short of breath, shortness of breath with arrest, fatigue, malaise, low-grade fevers. Patient presented to [facility] for acute hypoxia secondary COVID-19 pneumonia, placed on 15 L nonrebreather. Review of Systems Const: Reports: chills and malaise; Denies: fever(s) or fatigue Eyes: Denies: change in vision or blurry vision ENMT: Denies: nasal congestion Card: Denies: chest pain or palpitations Resp: Reports: dyspnea and non-productive cough; Denies: productive cough or wheezing GI: Denies: abdominal pain, nausea, vomiting, hematemesis, diarrhea, constipation, hematochezia or melena : Denies: flank pain, difficulty urinating, dysuria or urinary frequency Musc: Denies: neck pain or back pain Skin/Breast: Denies: rash Neuro: Denies: headache(s), dizziness or vertigo Psych: Denies: anxiety or depression Endo: Denies: polyuria or polydipsia Medications/Allergies Home Medications Medication Instructions Recorded Confirmed Last Taken Type diclofenac sodium 75 mg 75 mg PO BID PRN #60 tab 03/15/20 03/06/21 Unknown Rx tablet,delayed release cyclobenzaprine 10 mg tablet 10 mg PO TID PRN #30 tab 05/17/20 03/06/21 Unknown Rx omega-3 acid ethyl esters 1 gram 2 cap PO BID 30 Days #120 cap 06/25/20 03/06/21 Unknown Rx capsule lidocaine 5 % topical patch 1 patch TOPICAL DAILY #30 ea 09/13/20 03/06/21 Unknown Rx mupirocin 2 % topical ointment 1 applic TOPICAL BID #22 g 11/23/20 03/06/21 Unknown Rx oxybutynin chloride 5 mg tablet 5 mg PO BID 12/07/20 03/06/21 Unknown History bupropion HCl 300 mg 24 hr tablet, 300 mg PO QAM #30 tab 12/08/20 03/06/21 Unknown Rx extended release fluoxetine 40 mg capsule 80 mg PO QAM #60 cap 12/08/20 03/06/21 03/06/21 Rx hydroxyzine HCl 50 mg tablet 50 mg PO QID PRN #120 tab 12/08/20 03/06/21 Unknown Rx propranolol 20 mg tablet 20 mg PO TID PRN #90 tab 12/08/20 03/06/21 Unknown Rx esomeprazole magnesium 40 mg See Rx Instructions .ROUTE 12/13/20 03/06/21 03/06/21 Rx capsule,delayed release .COMPLEX #30 cap gemfibrozil 600 mg tablet See Rx Instructions .ROUTE 12/13/20 03/06/21 Unknown Rx .COMPLEX #30 tab glipizide 10 mg tablet See Rx Instructions .ROUTE 12/13/20 03/06/21 Unknown Rx .COMPLEX #60 tab lovastatin 20 mg tablet See Rx Instructions .ROUTE 12/13/20 03/06/21 03/05/21 Rx .COMPLEX #30 tab catheter leg bags #10 ea 01/07/21 03/06/21 Unknown Rx four point cane #1 ea 01/07/21 03/06/21 Unknown Rx tramadol 50 mg tablet 50 mg PO TID PRN 30 Days #60 tab 01/07/21 03/06/21 Unknown Rx acetaminophen 500 mg PO Q6H PRN 5 Days #20 tab 03/04/21 03/06/21 Unknown Rx ondansetron HCl [Zofran] 4 mg PO TID PRN 4 Days #12 tab 03/04/21 03/06/21 Unknown Rx prednisone 50 mg PO DAILY 5 Days #5 tab 03/04/21 03/06/21 03/05/21 Rx buspirone 5 mg PO TID PRN 03/06/21 03/06/21 Unknown History empagliflozin [Jardiance] 12.5 mg PO DAILY 03/06/21 03/06/21 Unknown History metformin 1,000 mg PO DAILY 03/06/21 03/06/21 Unknown History prazosin 5 mg PO BEDTIME 03/06/21 03/06/21 Unknown History trazodone 300 mg PO BEDTIME 03/06/21 03/06/21 Unknown History Allergies Allergy/AdvReac Type Severity Reaction Status Date / Time No Known Allergies Allergy Verified 03/04/21 16:20 PFSH Acute PFSH: Medical History Diabetes mellitus GERD (gastroesophageal reflux disease) Hyperlipidemia Psychiatric care Renal mass Surgical History Hx of rotator cuff surgery (~2009) Family History Family/Other Diabetes Hypertension Heart disease Social History Quit status (tobacco): has quit using tobacco Year quit tobacco: a long time Second hand smoke exposure: Yes Alcohol intake: never Lives independently: Yes Household members: spouse Marital status: 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 History of recent travel: No Current gender identity: Male Vitals/I&O/Wt Last Vital Signs Pulse 64 03/06/21 11:15 Resp 24 H 03/06/21 11:15 BP 156/79 03/06/21 11:15 Pulse Ox 97 03/06/21 11:32 Weight last 48 hrs Weight 90.718 kg Physical Exam Const: COMMON NORMALS: no acute distress and patient oriented x3 GENERAL APPEARANCE: cooperative and comfortable HENMT: COMMON NORMALS: normocephalic HEAD & SCALP: normocephalic Eye: COMMON NORMALS: Equal, round and reactive pupils present and EOMs intact bilaterally GENERAL EYE: appearance normal, both eyes and all related structures PUPIL: Yes Equal, round and reactive pupils present Neck/C-Spine: COMMON NORMALS: full ROM and no lymphadenopathy THYROID: Thyroid normal Lymph: LYMPHATIC: no lymphadenopathy noted Resp: COMMON NORMALS: normal respiratory effort, No retractions and No use of accessory muscles AUSCULTATION: diminished lung sounds diffuse Cardio: COMMON NORMALS: regular rate, regular rhythm, S1 normal heart sound present, S2 normal heart sound present, No gallops present (Cardio), No clicks present (Cardio) and No murmurs present (Cardio) RATE: regular rate RHYTHM: regular rhythm HEART SOUNDS: S1 normal heart sound present and S2 normal heart sound present GI: COMMON NORMALS: Normal to inspection, nondistended, normoactive bowel sounds present, Soft to palpation, non-tender and No hepatosplenomegaly present PALPATION: Yes Soft to palpation and Yes No hepatosplenomegaly present Extremity: COMMON NORMALS: normal to inspection, full ROM and no pedal edema Neuro: COMMON NORMALS: patient oriented x3, CN's II-XII intact bilaterally, moves all extremities and no focal motor deficits Psych: COMMON NORMALS: mental status grossly normal, Normal thought process present and cooperative THOUGHT PROCESS: Normal thought process present Data : 03/06/21 11:28 03/06/21 11:28 A&P Assessment and plan (1) Pneumonia due to COVID-19 virus: Plan: -Sputum cultures, blood culturee, urine bacterial antigen -Follow inflammatory markers pro-Dave, CRP -Follow symptomatology -Continue 15 L nonrebreather, heated high flow heated -We will perform CT angiogram of the chest -BNP, troponin pending -Decadron day 1 of 10 -Remdesivir day 1 of 5 -We will hold off on Actemra, if symptomatology worsens or after events increase will give 1 dose -Levofloxacin for second bacterial pneumonia prophylaxis -He is on multiple antipsychotic medications, need to monitor QTc interval closely -Telemetry monitoring -Vitamin C, vitamin D, zinc -Incentive spirometer, flutter valve -Low-dose sliding scale -Full code -Lovenox for DVT prophylaxis Status: Acute (2) Generalized anxiety disorder: Status: Acute (3) GERD (gastroesophageal reflux disease): Status: Acute Qualifiers: Esophagitis presence: esophagitis presence not specified Qualified Code(s): K21.9 - Gastro-esophageal reflux disease without esophagitis (4) Major depressive disorder, recurrent severe without psychotic features: Status: Acute (5) Diabetes mellitus: Status: Acute Qualifiers: Diabetes mellitus type: type 2 Diabetes mellitus intermediate insulin use: without intermediate teacher use Diabetes mellitus complication status: with hyperglycemia Qualified Code(s): E11.65 - Type 2 diabetes mellitus with hyperglycemia (6) Hyperlipidemia: Status: Acute Qualifiers: Hyperlipidemia type: unspecified Qualified Code(s): E78.5 - Hyperlipidemia, unspecified Attestations Medical Necessity Statement*: Patient requires hospitalization for COVID-19 pneumonia, inpatient, greater than 2 midnights Coding Level of Care Code Acute Flavoring Maker for [facility] Diagnoses Pneumonia due to COVID-19 virus U07.1; J12.82 Generalized anxiety disorder F41.1 GERD (gastroesophageal reflux disease) K21.9 Esophagitis presence: esophagitis presence not specified Major depressive disorder, recurrent severe without psychotic features F33.2 Diabetes mellitus E11.65 Diabetes mellitus type: type 2 Diabetes mellitus intermediate insulin use: without intermediate teacher use Diabetes mellitus complication status: with hyperglycemia Hyperlipidemia E78.5 Hyperlipidemia type: unspecified
[2021-03-06] MEDS: remdesivir 200 MG in sodium chloride 0.9% (100 ml) 60 ML 100 MG IV (14:00)
[2021-03-06] MEDS: dexamethasone 10 mg/mL INJ 6 MG IVP (14:00)
[2021-03-06 14:29] LABS: Troponin 5 2HR 11.37 ng/L (0-15)
[2021-03-06 14:37] LABS: NT Pro B Type Natriuretic Pept 1180 pg/mL (0-125)
[2021-03-06 14:46] LABS: Troponin 5 2HR Delta -0.63 ABS# (0-10)
[2021-03-06 14:48] LABS: C Reactive Protein 24.5 mg/L (0.0-4.9)
[2021-03-06 15:19] LABS: D Dimer 4.77 ug/mIFEU (0-0.59)
--- NOTE | 2021-03-06 16:47 | CTR_ITS ---
PROCEDURE INFORMATION: Exam: CTA Chest With Contrast Exam date and time: 03/06/2021 4:47 PM Age: 50 years old Clinical indication: Shortness of breath; Patient HX: PT unable to hold breath; Additional info: SOB TECHNIQUE: Imaging protocol: Computed tomographic angiography of the chest with contrast. 3D rendering (Not supervised by radiologist): MIP and/or 3D reconstructed images were created by the technologist. Total images: 811 Radiation optimization: All CT scans at this facility use at least one of these dose optimization techniques: automated exposure control; mA and/or kV adjustment per patient size (includes targeted exams where dose is matched to clinical indication); or iterative reconstruction. Contrast material: OMNI 350; Contrast volume: 65 ml; Contrast route: INTRAVENOUS (IV); COMPARISON: CR (CHEST, ) 03/06/2021 11:45 AM RADIATION DOSE METRICS: Total DLP (mGy-cm): 532.57 FINDINGS: Pulmonary arteries: No visible evidence of pulmonary embolism/pulmonary arterial thrombus. Aorta: The thoracic aorta is nonaneurysmal. No visible intimal flap or dissection. Lungs: Bilateral, predominantly peripheral, patches of ground-glass interstitial lung disease opacification with patches of early consolidated alveolar airspace disease consistent with active interstitial pneumonitis/pneumonia. Overall constellation of findings would be consistent with moderate severe Covid-19 pneumonitis/pneumonia. Pleural spaces: No pneumothorax. No pleural effusion. Heart: Cardiac size within normal limits. Scant pericardial effusion. No visible significant coronary artery disease. Lymph nodes: Few small marginally prominent mediastinal hilar lymph nodes most likely reactive. Bones/joints: No visible acute osseous abnormality. Soft tissues: Unremarkable. Other findings: Increased quantum mottle artifact which degrades image quality and detail assessment. CT/CT angio chest PE protcl [id number] IMPRESSION: 1. No visible evidence of pulmonary embolism/pulmonary arterial thrombus. 2. Moderate severe Covid-19 pneumonitis/pneumonia. 3. Scant pericardial effusion.
--- NOTE | 2021-03-06 17:20 | ECG_ITS ---
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 Measurements Intervals [place] Rate: 53 P: 29 ID: [id number] QRS: 21 QRSD: 78 T: 52 QT: 467 QTc: 438 Interpretive Statements SINUS BRADYCARDIA Compared to ECG 03/06/2021 13:50:23 Sinus rhythm no longer present Electronically Signed On 03-06-2021 20:23:31 DOCK BOSS by Kristofer Schwartz M.D. [email or web address] [email or web address] park hospitalPenemarie K Murphy/store/[id number]
[2021-03-06] MEDS: iohexol 350 mg/mL 100 mL Btl IV (17:22)
[2021-03-06 17:46] LABS: Glucose Point of Care 526 mg/dL (70-110)
[2021-03-06 17:46] LABS: Glucose Point of Care 424 mg/dL (70-110)
[2021-03-06] MEDS: FUROsemide 10 mg/mL SDV 2mL 20 MG IVP (18:04)
[2021-03-06] MEDS: levofloxacin-dextrose 5 % 750 MG/150 ML PREMIX 100 MG IV (18:05)
[2021-03-06] MEDS: insulin lispro 100 unit/1 mL SUBCUT (18:05)
[2021-03-06] MEDS: enoxaparin 40 mg/0.4 mL Syringe SUBCUT (18:05)
[2021-03-06] MEDS: ascorbic acid 500 mg Tablet PO (18:05)
[2021-03-06 18:46] LABS: Troponin 5 6HR 11.17 ng/L (0-15)
[2021-03-06 18:54] LABS: Thyroid Stimulating Hormone 0.92 uIU/mL (0.27-4.20)
[2021-03-06 19:09] LABS: Troponin 5 6HR Delta -0.83 ng/L (0-12)
--- NOTE | 2021-03-06 19:46 | ECG_ITS ---
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 Measurements Intervals [place] Rate: 90 P: 56 [place]: 162 QRS: -19 QRSD: 74 T: 110 QT: 363 QTc: 446 Interpretive Statements SINUS RHYTHM POSSIBLE LEFT ATRIAL ENLARGEMENT [-0.1mV P-WAVE IN V1/V2] SEPTAL MYOCARDIAL INFARCTION , OF INDETERMINATE AGE [40+ ms Q WAVE IN V1/V2] Compared to ECG 03/09/2021 04:58:51 Myocardial infarct finding now present Electronically Signed On 04-27-2021 20:12:01 PLATER SUPERVISOR by Kristofer Schwartz M.D. [id number]
[2021-03-06] MEDS: prazosin 5 mg Capsule PO (20:00)
[2021-03-06] MEDS: ipratropium-albuterol 3 mL Neb INHALATION (20:49)
[2021-03-06] MEDS: budesonide 0.5 mg/2 mL Neb INHALATION (20:49)
[2021-03-06 21:16] LABS: Glucose Point of Care 316 mg/dL (70-110)
[2021-03-06] MEDS: trazodone 100 mg Tablet 300 MG PO (22:28)
[2021-03-07] VITALS (16 sets, daily range): BP systolic 130–168; BP diastolic 75–80; PULSE 55–82; RESP 16–19; TEMP 36.3–36.8; O2SAT 90–97
--- NOTE | 2021-03-07 06:00 | ECG_ITS ---
[facility] Test Date: 2021-03-07 Pat Name: Chau Mauricio Department: Room: 258 Gender: Male Learning Administrator: : 1970 Requested By: Mark Ho Order Number: [id number] Manisha MD: Kristofer Schwartz M.D. Measurements Intervals [place] Rate: 59 P: 25 SD: 145 QRS: 15 QRSD: 82 T: 46 QT: 459 QTc: 457 Interpretive Statements SINUS BRADYCARDIA Compared to ECG 03/06/2021 17:54:02 No significant changes Electronically Signed On 03-07-2021 20:56:39 RETAIL SALESWORKER by Kristofer Schwartz M.D. [email or web address] medical centerControlled Power [email or web address]/[id number]
[2021-03-07] MEDS: remdesivir 100 MG in sodium chloride 0.9% (100 ml) 80 ML IV (06:06)
[2021-03-07] MEDS: fluoxetine 20 mg Capsule 80 MG PO (06:06)
[2021-03-07] MEDS: buPROPion XL (24 HR) 300 mg Tablet PO (06:06)
[2021-03-07 06:47] LABS: Glucose Point of Care 259 mg/dL (70-110)
[2021-03-07 07:52] LABS: Lymphocytes # 0.6 10^3/uL (0.8-4.8); Lymphocytes % 9.4 %; Mean Corpuscular HGB Conc 35.1 g/dL (30.0-36.0); Mean Corpuscular Volume 82.6 fl (80-94); Mean Platelet Volume 10.4 fL (7.4-10.4); Monocytes # 0.5 10^3/uL (0.2-0.9); Monocytes % 7.8 %; Neutrophils # 5.36 10^3/uL (1.8-7.7); Neutrophils % 82.2 %; Nucleated Red Blood Cells % 0 %; Platelet Count 270 10^3/cmm (130-400); Red Blood Count 4.48 10^6/uL (4.1-5.3); Red Cell Distribution Width 12.4 % (12.1-15.1); White Blood Count 6.5 10^3/uL (4.0-10.0)
[2021-03-07 07:54] LABS: Alanine Aminotransferase 13 U/L (0-41); Albumin Level 2.9 g/dL (3.5-5.2); Alkaline Phosphatase 57 IU/L (40-130); Anion Gap 18.6 (5-19); Aspartate Amino Transferase 11 U/L (0-40); Blood Urea Nitrogen 27 mg/dL (6-20); Carbon Dioxide 21 mmol/L (22-29); Chloride 100 mmol/L (98-107); Globulin 3.1 g/dL (1.3-4.6); Glomerular Filtration Rate 79.4 mL/min (90-130); Glucose 233 mg/dL (65-115); Magnesium 1.9 mg/dL (1.7-2.3); Osmolality Calculated 293 mOsm/kg (285-295); Phosphorus 3.4 mg/dL (2.5-4.5); Potassium 4.6 mmol/L (3.5-5.1); Sodium 135 mmol/L (136-145); Total Bilirubin 0.3 mg/dL (0.15-1.2)
[2021-03-07] MEDS: cholecalciferol (vitamin D3) 1,000 unit Tablet 1000 UNIT PO (08:14)
[2021-03-07] MEDS: pantoprazole DR 40 mg Tablet PO (08:14)
[2021-03-07] MEDS: dexamethasone 10 mg/mL INJ 6 MG IVP (08:14)
[2021-03-07] MEDS: zinc gluconate 50 mg Tablet PO (08:14)
[2021-03-07] MEDS: atorvastatin 40 mg Tablet 20 MG PO (08:14)
[2021-03-07] MEDS: insulin lispro 100 unit/1 mL SUBCUT ×3 (08:14→17:26)
[2021-03-07] MEDS: gemfibrozil 600 mg Tablet PO (08:14)
[2021-03-07] MEDS: ascorbic acid 500 mg Tablet PO ×2 (08:14→17:27)
[2021-03-07] MEDS: omega-3 fatty acids 1,000 mg Capsule 2000 MG PO (08:14)
[2021-03-07] MEDS: ipratropium-albuterol 3 mL Neb INHALATION ×4 (08:36→20:57)
[2021-03-07] MEDS: budesonide 0.5 mg/2 mL Neb INHALATION ×2 (08:36→20:57)
[2021-03-07 12:01] LABS: Glucose Point of Care 261 mg/dL (70-110)
--- NOTE | 2021-03-07 12:46 | USCV_ITS ---
Chau Mauricio Age: 50 Gender: M : 1970 Exam Date: 03/07/2021 13:17 Ordering Phys: Pineda Rodriguez MD Technologist: [place]am [place] [facility] [place]ication: BED STASIS HISTORY: Lower extremity pain. PROCEDURES: The venous duplex Doppler examination of both lower extremities was performed in the standard fashion. The following venous structures were evaluated: common femoral vein, profunda vein, proximal portion of the greater saphenous vein, superficial femoral vein, and the popliteal vein. FINDINGS: Normal 2-D Doppler and augmentation and compressibility throughout the lower extremity venous structures. Additional imaging through the proximal calf veins also reveals no thrombus. Limited evaluation of the greater saphenous vein is patent with no thrombus. CONCLUSIONS No DVT bilateral lower extremities. Dr. Kim Francisco DO (Electronically Signed) Final Date: 07 March 2021 14:59 S
--- NOTE | 2021-03-07 14:44 | PM.PN ---
Subjective Subjective: Interval history: Patient was seen and examined this morning continues to complain of significant shortness of breath with minimal exertion, though he feels better as compared to yesterday, supplemental oxygen requirement has gone down today, currently he is doing well on 10Ls oxygen through oxymask. Good urine output. Hyponatremia and VERNON has resolved. Bilateral lower extremity Doppler vein no DVT Medications: Reviewed: Yes Medication Review Details: Generic Name Dose Route Start Last Admin Trade Name Juniq PRN Reason Stop Dose Admin Albuterol/Ipratrop ium 3 ml 03/06/21 17:20 03/07/21 12:51 Ipratropium-Albu terol 3 Ml Neb INHALATION 3 ml QID.RESPIRATORY S CH Administration Ascorbic Acid 500 mg 03/06/21 18:00 03/07/21 08:14 Ascorbic Acid 50 0 Mg Tablet PO 500 mg BID TRINY Administration Atorvastatin Calci um 20 mg 03/07/21 09:00 03/07/21 08:14 Atorvastatin 40 Mg Tablet PO 20 mg QD TRINY Administration Budesonide 0.5 mg 03/06/21 20:00 03/07/21 08:36 Budesonide 0.5 M g/2 Ml Neb INHALATION 0.5 mg BID.RESPIRATORY S CH Administration Bupropion HCl 300 mg 03/07/21 06:00 03/07/21 06:06 Bupropion Xl (24 Hr) 300 Mg Tablet PO 300 mg QAM TRINY Administration Dexamethasone 6 mg 03/07/21 08:00 03/07/21 08:14 Dexamethasone 10 Mg/Ml Inj IVP 6 mg Q24H TRINY Administration Enoxaparin Sodium 40 mg 03/06/21 17:20 03/06/21 18:05 Enoxaparin 40 Mg /0.4 Ml Syringe SUBCUT 40 mg Q24H TRINY Administration Fluoxetine HCl 80 mg 03/07/21 06:00 03/07/21 06:06 Fluoxetine 20 Mg Capsule PO 80 mg QAM TRINY Administration Gemfibrozil 600 mg 03/07/21 09:00 03/07/21 08:14 Gemfibrozil 600 Mg Tablet PO 600 mg QD TRINY Administration Remdesivir 100 mg/ Sodium 80 mls @ 100 mls/ hr 03/07/21 06:00 03/07/21 08:25 Chloride IV 03/10/21 06:47 Infused Q24H TRINY Infusion Levofloxacin/Dextr ose 750 mg in 150 mls @ 100 mls/hr 03/06/21 17:20 03/06/21 19:35 Levaquin-D5w IV Infused Q24H TRINY Infusion Protocol Insulin Human Lisp ro 0 unit 03/06/21 18:00 03/07/21 12:54 Insulin Lispro 1 00 Unit/1 Ml SUBCUT 8 unit TIDWM TRINY Administration Protocol Edvts-0-Bmej Ethyl Esters 2,000 mg 03/07/21 09:00 03/07/21 08:14 [place]-3 Fatty Ac ids 1,000 Mg Capsu le PO 2,000 mg BID TRINY Administration Pantoprazole Sodiu m 40 mg 03/07/21 09:00 03/07/21 08:[address] 40 Mg Tablet PO 40 mg DAILY TRINY Administration Prazosin HCl 5 mg 03/06/21 21:00 03/06/21 20:00 Prazosin 5 Mg Ca psule PO 5 mg BEDTIME TRINY Administration Trazodone HCl 300 mg 03/06/21 21:00 03/06/21 22:28 Trazodone 100 Mg Tablet PO 300 mg BEDTIME TRINY Administration Vitamin D 1,000 unit 03/07/21 09:00 03/07/21 08:14 Cholecalciferol (Vitamin D3) 1,000 Unit Tablet PO 1,000 unit DAILY TRINY Administration Zinc Gluconate 50 mg 03/07/21 09:00 03/07/21 08:14 Zinc Gluconate 5 0 Mg Tablet PO 50 mg DAILY TRINY Administration Vitals/I&O/Wt Last Vital Signs Temp 98.3 F 03/07/21 11:12 Pulse 82 03/07/21 12:57 Resp 16 03/07/21 12:57 BP 130/78 03/07/21 11:12 Pulse Ox 90 03/07/21 12:57 03/06/21 03/07/21 03/07/21 22:59 06:59 14:59 Intake Total 150 / 710 300 / 1010 200 / 200 Output Total 1500 / 1500 900 / 2400 200 / 200 Balance -1350 / -790 -600 / -1390 0 / 0 Weight last 48 hrs Weight 45.314 kg Weight 94.982 kg Weight 90.718 kg Physical Exam Const: COMMON NORMALS: patient oriented x3 HENMT: COMMON NORMALS: normocephalic and atraumatic HEAD & SCALP: normocephalic and atraumatic Resp: COMMON NORMALS: clear to auscultation bilaterally AUSCULTATION: clear to auscultation bilaterally Cardio: COMMON NORMALS: regular rate, regular rhythm, S1 normal heart sound present, S2 normal heart sound present, No gallops present (Cardio), No murmurs present (Cardio), No rub (Cardio) and Peripheral pulses 2+ throughout RATE: regular rate RHYTHM: regular rhythm HEART SOUNDS: S1 normal heart sound present and S2 normal heart sound present PERIPHERAL PULSES: Peripheral pulses 2+ throughout GI: COMMON NORMALS: Normal to inspection, nondistended, normoactive bowel sounds present, Soft to palpation, non-tender, No hepatosplenomegaly present and no masses AUSCULTATION: Yes normoactive bowel sounds PALPATION: Yes Soft to palpation and Yes No hepatosplenomegaly present RECTAL EXAM: Yes deferred Extremity: COMMON NORMALS: no clubbing, cyanosis or edema and no pedal edema Neuro: COMMON NORMALS: patient oriented x3 Data : 03/07/21 07:15 03/07/21 07:15 Micro: Microbiology 03/06/21 14:43 Blood Culture - Preliminary Blood SPECIMEN COLLECTED 03/06/21 14:40 Blood Culture - Preliminary Blood SPECIMEN COLLECTED A&P Assessment and plan (1) Pneumonia due to COVID-19 virus: Plan: -Sputum cultures, blood culturee, urine bacterial antigen -Follow inflammatory markers pro-Dave, CRP -Continue 15 L nonrebreather, heated high flow heated -CT angiogram of the chest: No PE, b/l diffuse groundglass opacity -2D echo: No LV size and systolic function, EF 60% , normal RV size and systolic function,Trivial pericardial effusion. -Bilateral lower extremity Doppler vein; no DVT: -BNP, troponin pending -Decadron day 1 of 10 -Remdesivir day 1 of 5 -We will hold off on Actemra, if symptomatology worsens or after events increase will give 1 dose -Levofloxacin for second bacterial pneumonia prophylaxis -He is on multiple antipsychotic medications, need to monitor QTc interval closely -Telemetry monitoring -Vitamin C, vitamin D, zinc -Incentive spirometer, flutter valve -Low-dose sliding scale -Full code -Lovenox for DVT prophylaxis Status: Acute (2) Generalized anxiety disorder: Status: Acute (3) GERD (gastroesophageal reflux disease): Status: Acute Qualifiers: Esophagitis presence: esophagitis presence not specified Qualified Code(s): K21.9 - Gastro-esophageal reflux disease without esophagitis (4) Major depressive disorder, recurrent severe without psychotic features: Status: Acute (5) Diabetes mellitus: Status: Acute Qualifiers: Diabetes mellitus complication status: with hyperglycemia Diabetes mellitus group home insulin use: without group home use Diabetes mellitus type: type 2 Qualified Code(s): E11.65 - Type 2 diabetes mellitus with hyperglycemia (6) Hyperlipidemia: Status: Acute Qualifiers: Hyperlipidemia type: unspecified Qualified Code(s): E78.5 - Hyperlipidemia, unspecified Attestations Medical Necessity Statement*: Patient is to be in hospital for management of Covid pneumonia. 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
[2021-03-07 17:10] LABS: Glucose Point of Care 327 mg/dL (70-110)
--- NOTE | 2021-03-07 17:20 | USCV_ITS ---
Chau Mauricio Age: 50 Gender: M : 1970 Exam Date: 03/07/2021 06:53 Ordering Phys: Mark Ho MD Technologist: MARILYN Exam Location: [facility] [place] Indication: Shortness of breath BP: 168 / 80 HR: 54 Rhythm: Sinus Technical Quality: Adequate MEASUREMENTS (Male / Female) Normal Values 2D ECHO LV Diastolic Diameter PLAX 3.6 cm 4.2 - 5.9 / 3.9 - 5.3 cm LV Systolic Diameter PLAX 2.6 cm IVS Diastolic Thickness 1.3 cm 0.6 - 1.0 / 0.6 - 0.9 cm IVS Systolic Thickness 1.6 cm LVPW Diastolic Thickness 1.4 cm 0.6 - 1.0 / 0.6 - 0.9 cm LVPW Systolic Thickness 1.5 cm LVOT Diameter 2.0 cm LV Ejection Fraction 2D Teich 54.4 % LV Ejection Fraction MOD 2C 46.7 % LV Ejection Fraction 2C AL 50.0 % LA Diameter 3.0 cm LA Width 3.7 cm LA Height 4.2 cm Aorta at Sinotubular Diameter 2.3 cm M-MODE Aortic Annulus Diameter 3.0 cm LA Ao Ratio MM 1.0 MV E Point Septal Separation 0.5 cm DOPPLER AV Peak Velocity 97.0 cm/s LVOT Peak Velocity 80.0 cm/s AV Area Cont Eq vti 2.3 cm squared AV Area Cont Eq pk 2.6 cm squared MV E' Velocity 14.0 cm/s TV Peak E Velocity 66.0 cm/s Right Atrial Pressure 3.0 mmHg PV Peak Velocity 139.0 cm/s RV Acceleration Time 0.1 s RV Ejection Time 0.4 s RV AcT/ET 0.4 FINDINGS Left Ventricle Normal left ventricular size and systolic function with no regional wall motion abnormalities. Left ventricular ejection fraction is estimated at 60 %. Normal diastolic function. Right Ventricle Normal right ventricular size and systolic function. RVSP could not be calculated due to incomplete tricuspid regurgitation velocity profile. Right Atrium Normal right atrial size. Right atrial pressure estimated at 3 mmHg. Left Atrium Normal left atrial size. Mitral Valve Structurally normal mitral valve. No mitral valve stenosis. Trace mitral valve regurgitation. Aortic Valve Structurally normal trileaflet aortic valve. No aortic valve stenosis. No aortic valve regurgitation. Tricuspid Valve Structurally normal tricuspid valve. No tricuspid valve stenosis. Trace tricuspid valve regurgitation. Pulmonic Valve Structurally normal pulmonic valve. No pulmonary valve stenosis. Trace pulmonary valve regurgitation. Pericardium Trivial pericardial effusion. No evidence of hemodynamic compromise. Aorta Normal size aortic root and proximal ascending aorta. Normal size inferior vena cava. CONCLUSIONS 1. Normal left ventricular size and systolic function with no regional wall motion abnormalities. Left ventricular ejection fraction is estimated at 60 %. Normal diastolic function. 2. Normal right ventricular size and systolic function. 3. Trivial pericardial effusion. No evidence of hemodynamic compromise. 4. No prior similar studies to compare. Rowena Dimas MD (Electronically Signed) Final Date: 07 March 2021 12:42 S
[2021-03-07] MEDS: enoxaparin 40 mg/0.4 mL Syringe SUBCUT (17:26)
[2021-03-07] MEDS: levofloxacin-dextrose 5 % 750 MG/150 ML PREMIX 100 MG IV (17:26)
[2021-03-07] MEDS: trazodone 100 mg Tablet 300 MG PO (20:56)
[2021-03-07] MEDS: prazosin 5 mg Capsule PO (20:56)
[2021-03-07] MEDS: lanolin oint 7 gm 1 APPLIC TOPICAL (21:16)
[2021-03-07 21:27] LABS: Glucose Point of Care 292 mg/dL (70-110)
[2021-03-08] VITALS (12 sets, daily range): BP systolic 112–158; BP diastolic 70–80; PULSE 58–100; RESP 17–20; TEMP 36.6–36.7; O2SAT 87–97
--- NOTE | 2021-03-08 05:10 | PC.NURSE ---
i reported to the nurse low
--- NOTE | 2021-03-08 06:00 | ECG_ITS ---
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 Measurements Intervals [place] Rate: 65 P: 32 [place]: 154 QRS: 22 QRSD: 81 T: 46 QT: 433 QTc: 452 Interpretive Statements SINUS RHYTHM Compared to ECG 03/07/2021 13:54:33 Sinus bradycardia no longer present Electronically Signed On 03-08-2021 13:15:52 E COMMERCE DEVELOPER by Rowena Dimas M.D. [id number]
[2021-03-08 06:03] LABS: Basophils % 0.1 %; Eosinophils % 0.1 %; Hematocrit 35.8 % (42.0-52.0); Hemoglobin 12.5 g/dL (11.7-16.6); Lymphocytes # 0.7 10^3/uL (0.8-4.8); Lymphocytes % 10.1 %; Mean Corpuscular HGB Conc 34.9 g/dL (30.0-36.0); Mean Corpuscular Hemoglobin 28.8 pg (28.0-34.0); Mean Corpuscular Volume 82.5 fl (80-94); Mean Platelet Volume 10.1 fL (7.4-10.4); Monocytes # 0.6 10^3/uL (0.2-0.9); Monocytes % 8.3 %; Neutrophils # 5.59 10^3/uL (1.8-7.7); Nucleated Red Blood Cells % 0 %; Platelet Count 279 10^3/cmm (130-400); Red Blood Count 4.34 10^6/uL (4.1-5.3); Red Cell Distribution Width 12.3 % (12.1-15.1)
[2021-03-08 06:27] LABS: Erythrocyte Sedimentation Rate 29 mm/hr (0-10)
[2021-03-08] MEDS: buPROPion XL (24 HR) 300 mg Tablet PO (06:35)
[2021-03-08] MEDS: fluoxetine 20 mg Capsule 80 MG PO (06:35)
[2021-03-08] MEDS: remdesivir 100 MG in sodium chloride 0.9% (100 ml) 80 ML IV (06:36)
[2021-03-08 06:43] LABS: Alanine Aminotransferase 12 U/L (0-41); Alkaline Phosphatase 57 IU/L (40-130); Anion Gap 17.1 (5-19); Aspartate Amino Transferase 11 U/L (0-40); Blood Urea Nitrogen 24 mg/dL (6-20); Carbon Dioxide 21 mmol/L (22-29); Chloride 101 mmol/L (98-107); Globulin 2.8 g/dL (1.3-4.6); Glomerular Filtration Rate 79.4 mL/min (90-130); Glucose 185 mg/dL (65-115); Magnesium 1.8 mg/dL (1.7-2.3); Osmolality Calculated 289 mOsm/kg (285-295); Phosphorus 3.3 mg/dL (2.5-4.5); Potassium 4.1 mmol/L (3.5-5.1); Sodium 135 mmol/L (136-145); Total Bilirubin 0.4 mg/dL (0.15-1.2); Total Protein 5.8 g/dL (6.6-8.7)
[2021-03-08 06:45] LABS: Glucose Point of Care 231 mg/dL (70-110)
[2021-03-08 06:45] LABS: C Reactive Protein 26.1 mg/L (0.0-4.9); Ferritin 1000 ng/mL (30-400); Lactate Dehydrogenase 305 U/L (135-225)
[2021-03-08] MEDS: insulin lispro 100 unit/1 mL SUBCUT ×3 (08:54→17:51)
[2021-03-08] MEDS: pantoprazole DR 40 mg Tablet PO (08:55)
[2021-03-08] MEDS: cholecalciferol (vitamin D3) 1,000 unit Tablet 1000 UNIT PO (08:55)
[2021-03-08] MEDS: zinc gluconate 50 mg Tablet PO (08:55)
[2021-03-08] MEDS: dexamethasone 10 mg/mL INJ 6 MG IVP (08:55)
[2021-03-08] MEDS: ascorbic acid 500 mg Tablet PO ×2 (08:55→17:52)
[2021-03-08] MEDS: gemfibrozil 600 mg Tablet PO (08:59)
[2021-03-08] MEDS: atorvastatin 40 mg Tablet 20 MG PO (08:59)
[2021-03-08] MEDS: budesonide 0.5 mg/2 mL Neb INHALATION ×2 (11:18→20:38)
[2021-03-08] MEDS: ipratropium-albuterol 3 mL Neb INHALATION ×3 (11:18→20:38)
[2021-03-08 12:05] LABS: Glucose Point of Care 275 mg/dL (70-110)
--- NOTE | 2021-03-08 12:30 | XRR_ITS ---
PROCEDURE INFORMATION: Exam: XR Chest Exam date and time: 03/08/2021 12:30 PM Age: 50 years old Clinical indication: Condition or disease; Lung condition and disease; Pneumonia; Additional info: Pna TECHNIQUE: Imaging protocol: XR of the chest. Views: 1 view. COMPARISON: CR (CHEST, ) 03/06/2021 11:45 AM FINDINGS: Lungs: Bilateral pulmonary opacities seen throughout the right lung and in the left lower lobe. The left lung densities appear decreased since prior examination. The right lung findings appears stable. The left upper lobe is clear. Pleural spaces: Unremarkable. No pleural effusion. No pneumothorax. Heart/Mediastinum: Unremarkable. No cardiomegaly. Bones/joints: Unremarkable. XR/XR chest 1V portable [id number] IMPRESSION: Bilateral pulmonary opacities as noted above.
--- NOTE | 2021-03-08 13:25 | P.PN_ITS ---
Subjective Subjective: Interval history: Patient was seen and examined this morning, he says that he feels relatively better as compared to yesterday, was seen sitting in the chair today, still requiring 10 to 11ls oxygen through oxymask to maintain saturation greater than 85%, Blood sugar has been on higher side today, changes have been made to sliding scale insulin. A.m. chest x-ray: Slight improvement in left lung field infiltrates. No pneumothorax , no pneumomediastinum. His other vitals and labs have been reviewed. Medications: Reviewed: Yes Medication Review Details: Generic Name Dose Route Start Last Admin Trade Name Freq PRN Reason Stop Dose Admin Albuterol/Ipratrop ium 3 ml 03/06/21 17:20 03/07/21 12:51 Ipratropium-Albu terol 3 Ml Neb INHALATION 3 ml QID.RESPIRATORY S CH Administration Ascorbic Acid 500 mg 03/06/21 18:00 03/07/21 08:14 Ascorbic Acid 50 0 Mg Tablet PO 500 mg BID TRINY Administration Atorvastatin Calci um 20 mg 03/07/21 09:00 03/07/21 08:14 Atorvastatin 40 Mg Tablet PO 20 mg QD TRINY Administration Budesonide 0.5 mg 03/06/21 20:00 03/07/21 08:36 Budesonide 0.5 M g/2 Ml Neb INHALATION 0.5 mg BID.RESPIRATORY S CH Administration Bupropion HCl 300 mg 03/07/21 06:00 03/07/21 06:06 Bupropion Xl (24 Hr) 300 Mg Tablet PO 300 mg QAM TRINY Administration Dexamethasone 6 mg 03/07/21 08:00 03/07/21 08:14 Dexamethasone 10 Mg/Ml Inj IVP 6 mg Q24H TRINY Administration Enoxaparin Sodium 40 mg 03/06/21 17:20 03/06/21 18:05 Enoxaparin 40 Mg /0.4 Ml Syringe SUBCUT 40 mg Q24H TRINY Administration Fluoxetine HCl 80 mg 03/07/21 06:00 03/07/21 06:06 Fluoxetine 20 Mg Capsule PO 80 mg QAM TRINY Administration Gemfibrozil 600 mg 03/07/21 09:00 03/07/21 08:14 Gemfibrozil 600 Mg Tablet PO 600 mg QD TRINY Administration Remdesivir 100 mg/ Sodium 80 mls @ 100 mls/ hr 03/07/21 06:00 03/07/21 08:25 Chloride IV 03/10/21 06:47 Infused Q24H TRINY Infusion Levofloxacin/Dextr ose 750 mg in 150 mls @ 100 mls/hr 03/06/21 17:20 03/06/21 19:35 Levaquin-D5w IV Infused Q24H TRINY Infusion Protocol Insulin Human Lisp ro 0 unit 03/06/21 18:00 03/07/21 12:54 Insulin Lispro 1 00 Unit/1 Ml SUBCUT 8 unit TIDWM TRINY Administration Protocol Zbmne-4-[place] Ethyl Esters 2,000 mg 03/07/21 09:00 03/07/21 08:14 [place]-3 Fatty Ac ids 1,000 Mg Capsu le PO 2,000 mg BID TRINY Administration Pantoprazole Sodiu m 40 mg 03/07/21 09:00 03/07/21 08:[address] 40 Mg Tablet PO 40 mg DAILY TRINY Administration Prazosin HCl 5 mg 03/06/21 21:00 03/06/21 20:00 Prazosin 5 Mg Ca psule PO 5 mg BEDTIME TRINY Administration Trazodone HCl 300 mg 03/06/21 21:00 03/06/21 22:28 Trazodone 100 Mg Tablet PO 300 mg BEDTIME TRINY Administration Vitamin D 1,000 unit 03/07/21 09:00 03/07/21 08:14 Cholecalciferol (Vitamin D3) 1,000 Unit Tablet PO 1,000 unit DAILY TRINY Administration Zinc Gluconate 50 mg 03/07/21 09:00 03/07/21 08:14 Zinc Gluconate 5 0 Mg Tablet PO 50 mg DAILY TRINY Administration Vitals/I&O/Wt Last Vital Signs Temp 97.9 F 03/08/21 11:50 Pulse 100 03/08/21 11:50 Resp 18 03/08/21 11:50 BP 117/71 03/08/21 11:50 Pulse Ox 87 L 03/08/21 11:50 03/07/21 03/08/21 03/08/21 22:59 06:59 14:59 Intake Total 350 / 550 320 / 320 Output Total 330 / 530 640 / 1170 Balance -640 / -620 320 / 320 Weight last 48 hrs Weight 45.314 kg Weight 94.982 kg Physical Exam Const: COMMON NORMALS: patient oriented x3 HENMT: COMMON NORMALS: normocephalic and atraumatic HEAD & SCALP: normocephalic and atraumatic Resp: COMMON NORMALS: clear to auscultation bilaterally AUSCULTATION: clear to auscultation bilaterally Cardio: COMMON NORMALS: regular rate, regular rhythm, S1 normal heart sound present, S2 normal heart sound present, No gallops present (Cardio), No murmurs present (Cardio), No rub (Cardio) and Peripheral pulses 2+ throughout RATE: regular rate RHYTHM: regular rhythm HEART SOUNDS: S1 normal heart sound present and S2 normal heart sound present PERIPHERAL PULSES: Peripheral pulses 2+ throughout GI: COMMON NORMALS: Normal to inspection, nondistended, normoactive bowel sounds present, Soft to palpation, non-tender, No hepatosplenomegaly present and no masses AUSCULTATION: Yes normoactive bowel sounds PALPATION: Yes Soft to palpation and Yes No hepatosplenomegaly present RECTAL EXAM: Yes deferred Extremity: COMMON NORMALS: no clubbing, cyanosis or edema and no pedal edema Neuro: COMMON NORMALS: patient oriented x3 Data : 03/08/21 05:43 03/08/21 05:43 Micro: Microbiology 03/08/21 06:50 Bacterial Antigens - Final Urine,Clean Catch 03/07/21 21:18 Gram Stain - Final Sputum - Expectorated Sputum 03/06/21 14:43 Blood Culture - Preliminary Blood NEGATIVE TO DATE 03/06/21 14:40 Blood Culture - Preliminary Blood NEGATIVE TO DATE A&P Assessment and plan (1) Pneumonia due to COVID-19 virus: Plan: -Sputum cultures, blood culturee, urine bacterial antigen -Follow inflammatory markers pro-Dave, CRP -Continue 15 L nonrebreather, heated high flow heated -CT angiogram of the chest: No PE, b/l diffuse groundglass opacity -2D echo: No LV size and systolic function, EF 60% , normal RV size and systolic function,Trivial pericardial effusion. -Bilateral lower extremity Doppler vein; no DVT: -BNP, troponin pending -Decadron day 1 of 10 -Remdesivir day 1 of 5 -We will hold off on Actemra, if symptomatology worsens or after events increase will give 1 dose -Levofloxacin for second bacterial pneumonia prophylaxis -He is on multiple antipsychotic medications, need to monitor QTc interval closely -Telemetry monitoring -Vitamin C, vitamin D, zinc -Incentive spirometer, flutter valve -Low-dose sliding scale -Full code -Lovenox for DVT prophylaxis Status: Acute (2) Generalized anxiety disorder: Status: Acute (3) GERD (gastroesophageal reflux disease): Status: Acute Qualifiers: Esophagitis presence: esophagitis presence not specified Qualified Code(s): K21.9 - Gastro-esophageal reflux disease without esophagitis (4) Major depressive disorder, recurrent severe without psychotic features: Status: Acute (5) Diabetes mellitus: Status: Acute Qualifiers: Diabetes mellitus complication status: with hyperglycemia 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 Time Spent in Patient Care: Greater than 35 minutes (>than 50% of time spent in counselling and/or direct pt care on unit) . Coding Level of Care Code Acute Clinical Care Leader for g Fwd Exam Detailed Diagnoses Pneumonia due to COVID-19 virus U07.1; J12.82 Generalized anxiety disorder F41.1 GERD (gastroesophageal reflux disease) K21.9 Esophagitis presence: esophagitis presence not specified Major depressive disorder, recurrent severe without psychotic features F33.2 Diabetes mellitus E11.65 Diabetes mellitus complication status: with hyperglycemia Diabetes mellitus care home insulin use: without care home use Diabetes mellitus type: type 2 Hyperlipidemia E78.5 Hyperlipidemia type: unspecified
[2021-03-08 17:16] LABS: Glucose Point of Care 417 mg/dL (70-110)
[2021-03-08] MEDS: phenol oral Spray 177 mL 3 SPRAY MUCOUS MEM (17:51)
[2021-03-08] MEDS: enoxaparin 40 mg/0.4 mL Syringe SUBCUT (17:51)
[2021-03-08] MEDS: levofloxacin-dextrose 5 % 750 MG/150 ML PREMIX 150 MG IV (17:52)
[2021-03-08] MEDS: fluticasone nasal spray 16gm Btl 1 SPRAY NASAL (17:53)
[2021-03-08 21:07] LABS: Glucose Point of Care 370 mg/dL (70-110)
[2021-03-08] MEDS: trazodone 100 mg Tablet 300 MG PO (21:09)
[2021-03-08] MEDS: insulin glargine 100 units/1 mL 20 UNIT SUBCUT (21:09)
[2021-03-08] MEDS: prazosin 5 mg Capsule PO (21:09)
[2021-03-09] VITALS (10 sets, daily range): BP systolic 120–152; BP diastolic 72–85; PULSE 68–94; RESP 16–18; TEMP 36.6–37; O2SAT 88–94
[2021-03-09] MEDS: buPROPion XL (24 HR) 300 mg Tablet PO (05:27)
[2021-03-09] MEDS: fluoxetine 20 mg Capsule 80 MG PO (05:27)
[2021-03-09] MEDS: remdesivir 100 MG in sodium chloride 0.9% (100 ml) 80 ML IV (05:27)
--- NOTE | 2021-03-09 06:00 | ECG_ITS ---
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 Measurements Intervals [place] Rate: 63 P: 38 [place]: 154 QRS: 22 QRSD: 89 T: 37 QT: 443 QTc: 457 Interpretive Statements SINUS RHYTHM Compared to ECG 03/08/2021 05:32:37 No significant changes Electronically Signed On 03-10-2021 22:06:16 CRAFT CENTER DIRECTOR by Rowena Dimas M.D. [id number]
[2021-03-09 06:13] LABS: Basophils % 0.3 %; Eosinophils % 0.4 %; Hematocrit 35.7 % (42.0-52.0); Hemoglobin 12.2 g/dL (11.7-16.6); Lymphocytes # 0.9 10^3/uL (0.8-4.8); Mean Corpuscular HGB Conc 34.2 g/dL (30.0-36.0); Mean Corpuscular Hemoglobin 28.8 pg (28.0-34.0); Mean Corpuscular Volume 84.4 fl (80-94); Mean Platelet Volume 10.2 fL (7.4-10.4); Monocytes # 0.7 10^3/uL (0.2-0.9); Monocytes % 10.2 %; Neutrophils # 5.17 10^3/uL (1.8-7.7); Neutrophils % 74.7 %; Nucleated Red Blood Cells % 0 %; Platelet Count 281 10^3/cmm (130-400); Red Blood Count 4.23 10^6/uL (4.1-5.3); Red Cell Distribution Width 12.3 % (12.1-15.1); White Blood Count 6.9 10^3/uL (4.0-10.0)
[2021-03-09 06:25] LABS: D Dimer 2.16 ug/mIFEU (0-0.59)
[2021-03-09 06:43] LABS: Alanine Aminotransferase 12 U/L (0-41); Albumin Level 2.8 g/dL (3.5-5.2); Alkaline Phosphatase 54 IU/L (40-130); Anion Gap 17.9 (5-19); Aspartate Amino Transferase 10 U/L (0-40); Blood Urea Nitrogen 22 mg/dL (6-20); Calcium 7.9 mg/dL (8.5-10.5); Carbon Dioxide 20 mmol/L (22-29); Chloride 98 mmol/L (98-107); Glomerular Filtration Rate 89.7 mL/min (90-130); Glucose 177 mg/dL (65-115); Magnesium 1.7 mg/dL (1.7-2.3); Osmolality Calculated 282 mOsm/kg (285-295); Phosphorus 2.9 mg/dL (2.5-4.5); Potassium 3.9 mmol/L (3.5-5.1); Sodium 132 mmol/L (136-145); Total Bilirubin 0.4 mg/dL (0.15-1.2); Total Protein 5.8 g/dL (6.6-8.7)
[2021-03-09 06:43] LABS: Glucose Point of Care 254 mg/dL (70-110)
[2021-03-09 06:44] LABS: C Reactive Protein 35.4 mg/L (0.0-4.9); Ferritin 942 ng/mL (30-400); Lactate Dehydrogenase 260 U/L (135-225)
[2021-03-09 08:37] LABS: Erythrocyte Sedimentation Rate 33 mm/hr (0-10)
[2021-03-09] MEDS: budesonide 0.5 mg/2 mL Neb INHALATION (08:41)
[2021-03-09] MEDS: ipratropium-albuterol 3 mL Neb INHALATION ×3 (08:41→16:17)
[2021-03-09] MEDS: insulin lispro 100 unit/1 mL SUBCUT ×3 (09:33→17:25)
[2021-03-09] MEDS: ascorbic acid 500 mg Tablet PO ×2 (09:34→17:27)
[2021-03-09] MEDS: zinc gluconate 50 mg Tablet PO (09:34)
[2021-03-09] MEDS: cholecalciferol (vitamin D3) 1,000 unit Tablet 1000 UNIT PO (09:34)
[2021-03-09] MEDS: dexamethasone 10 mg/mL INJ 6 MG IVP (09:34)
[2021-03-09] MEDS: gemfibrozil 600 mg Tablet PO (09:34)
[2021-03-09] MEDS: BuSPIRONE 10 mg Tablet 5 MG PO (09:35)
[2021-03-09] MEDS: atorvastatin 40 mg Tablet 20 MG PO (09:35)
--- NOTE | 2021-03-09 10:48 | PC.NURSE ---
pt is refusing to wear his patient monitor
[2021-03-09 12:10] LABS: Glucose Point of Care 358 mg/dL (70-110)
[2021-03-09] MEDS: insulin glargine 100 units/1 mL 20 UNIT SUBCUT ×2 (13:15→21:12)
[2021-03-09] MEDS: clotrimazole 1% cream 30 gm 1 APPLIC TOPICAL ×2 (13:17→17:28)
--- NOTE | 2021-03-09 15:21 | PM.PN ---
Subjective Subjective: Interval history: Patient was seen and examined this morning, he says that he feels better. Supplemental oxygen requirement is going down.Blood sugar has been elevated, adjustment to daily insulin dosing is being made, patient has been advised to restrict to Carbohydrate consistent diet. No other acute events overnight. Medications: Reviewed: Yes Medication Review Details: Generic Name Dose Route Start Last Admin Trade Name Lynsey PRN Reason Stop Dose Admin Albuterol/Ipratrop ium 3 ml 03/06/21 17:20 03/07/21 12:51 Ipratropium-Albu terol 3 Ml Neb INHALATION 3 ml QID.RESPIRATORY S CH Administration Ascorbic Acid 500 mg 03/06/21 18:00 03/07/21 08:14 Ascorbic Acid 50 0 Mg Tablet PO 500 mg BID TRINY Administration Atorvastatin Calci um 20 mg 03/07/21 09:00 03/07/21 08:14 Atorvastatin 40 Mg Tablet PO 20 mg QD TRINY Administration Budesonide 0.5 mg 03/06/21 20:00 03/07/21 08:36 Budesonide 0.5 M g/2 Ml Neb INHALATION 0.5 mg BID.RESPIRATORY S CH Administration Bupropion HCl 300 mg 03/07/21 06:00 03/07/21 06:06 Bupropion Xl (24 Hr) 300 Mg Tablet PO 300 mg QAM TRINY Administration Dexamethasone 6 mg 03/07/21 08:00 03/07/21 08:14 Dexamethasone 10 Mg/Ml Inj IVP 6 mg Q24H TRINY Administration Enoxaparin Sodium 40 mg 03/06/21 17:20 03/06/21 18:05 Enoxaparin 40 Mg /0.4 Ml Syringe SUBCUT 40 mg Q24H TRINY Administration Fluoxetine HCl 80 mg 03/07/21 06:00 03/07/21 06:06 Fluoxetine 20 Mg Capsule PO 80 mg QAM TRINY Administration Gemfibrozil 600 mg 03/07/21 09:00 03/07/21 08:14 Gemfibrozil 600 Mg Tablet PO 600 mg QD TRINY Administration Remdesivir 100 mg/ Sodium 80 mls @ 100 mls/ hr 03/07/21 06:00 03/07/21 08:25 Chloride IV 03/10/21 06:47 Infused Q24H TRINY Infusion Levofloxacin/Dextr ose 750 mg in 150 mls @ 100 mls/hr 03/06/21 17:20 03/06/21 19:35 Levaquin-D5w IV Infused Q24H TRINY Infusion Protocol Insulin Human Lisp ro 0 unit 03/06/21 18:00 03/07/21 12:54 Insulin Lispro 1 00 Unit/1 Ml SUBCUT 8 unit TIDWM TRINY Administration Protocol Qvyec-1-Venb Ethyl Esters 2,000 mg 03/07/21 09:00 03/07/21 08:14 [place]-3 Fatty Ac ids 1,000 Mg Capsu le PO 2,000 mg BID TRINY Administration Pantoprazole Sodiu m 40 mg 03/07/21 09:00 03/07/21 08:[address] 40 Mg Tablet PO 40 mg DAILY TRINY Administration Prazosin HCl 5 mg 03/06/21 21:00 03/06/21 20:00 Prazosin 5 Mg Ca psule PO 5 mg BEDTIME TRINY Administration Trazodone HCl 300 mg 03/06/21 21:00 03/06/21 22:28 Trazodone 100 Mg Tablet PO 300 mg BEDTIME TRINY Administration Vitamin D 1,000 unit 03/07/21 09:00 03/07/21 08:14 Cholecalciferol (Vitamin D3) 1,000 Unit Tablet PO 1,000 unit DAILY TRINY Administration Zinc Gluconate 50 mg 03/07/21 09:00 03/07/21 08:14 Zinc Gluconate 5 0 Mg Tablet PO 50 mg DAILY TRINY Administration Vitals/I&O/Wt Last Vital Signs Temp 98.2 F 03/09/21 11:26 Pulse 70 03/09/21 11:46 Resp 18 03/09/21 11:46 BP 126/85 03/09/21 11:26 Pulse Ox 92 03/09/21 11:46 03/09/21 03/09/21 03/09/21 06:59 14:59 22:59 Intake Total 200 / 200 Output Total 100 / 1260 125 / 125 Balance -100 / 410 75 / 75 Physical Exam Const: COMMON NORMALS: patient oriented x3 HENMT: COMMON NORMALS: normocephalic and atraumatic HEAD & SCALP: normocephalic and atraumatic Resp: COMMON NORMALS: clear to auscultation bilaterally AUSCULTATION: clear to auscultation bilaterally Cardio: COMMON NORMALS: regular rate, regular rhythm, S1 normal heart sound present, S2 normal heart sound present, No gallops present (Cardio), No murmurs present (Cardio), No rub (Cardio) and Peripheral pulses 2+ throughout RATE: regular rate RHYTHM: regular rhythm HEART SOUNDS: S1 normal heart sound present and S2 normal heart sound present PERIPHERAL PULSES: Peripheral pulses 2+ throughout GI: COMMON NORMALS: Normal to inspection, nondistended, normoactive bowel sounds present, Soft to palpation, non-tender, No hepatosplenomegaly present and no masses AUSCULTATION: Yes normoactive bowel sounds PALPATION: Yes Soft to palpation and Yes No hepatosplenomegaly present RECTAL EXAM: Yes deferred Extremity: COMMON NORMALS: no clubbing, cyanosis or edema and no pedal edema Neuro: COMMON NORMALS: patient oriented x3 Data : 03/09/21 05:16 03/09/21 05:16 Micro: Microbiology 03/07/21 21:18 Gram Stain - Final Sputum - Expectorated Sputum Sputum Culture - Preliminary 03/08/21 06:50 Bacterial Antigens - Final Urine,Clean Catch A&P Assessment and plan (1) Pneumonia due to COVID-19 virus: Pneumonia due to COVID-19 virus: -CT angiogram of the chest: No PE, b/l diffuse groundglass opacity -2D echo: No LV size and systolic function, EF 60% , normal RV size and systolic function,Trivial pericardial effusion. -Bilateral lower extremity Doppler vein; no DVT: -Bacterial antigen panel negative, blood culture negative, sputum Gram stain: Rare gram-positive cocci in pairs, rare gram-negative rods. -Procalcitonin: 0.10 -Continue to monitor inflammatory markers (ESR CRP D-dimer, ferritin LDH) -Decadron for 10 days -Remdesivir day for 5 days --Vitamin C, vitamin D, zinc -Empirically on levofloxacin -He is on multiple antipsychotic medications, need to monitor QTc interval closely -Telemetry monitoring -Incentive spirometer, flutter valve -SSI -Lovenox for DVT prophylaxis Status: Acute (2) Generalized anxiety disorder: Status: Acute (3) GERD (gastroesophageal reflux disease): Status: Acute Qualifiers: Esophagitis presence: esophagitis presence not specified Qualified Code(s): K21.9 - Gastro-esophageal reflux disease without esophagitis (4) Major depressive disorder, recurrent severe without psychotic features: Status: Acute (5) Diabetes mellitus: Status: Acute Qualifiers: Diabetes mellitus complication status: with hyperglycemia Diabetes mellitus care home insulin use: without social services director use Diabetes mellitus type: type 2 Qualified Code(s): E11.65 - Type 2 diabetes mellitus with hyperglycemia (6) Hyperlipidemia: Status: Acute Qualifiers: Hyperlipidemia type: unspecified Qualified Code(s): E78.5 - Hyperlipidemia, unspecified Attestations Medical Necessity Statement*: Patient is still in hospital for management of Covid pneumonia. Coding Level of Care Code Acute Vice President Pharmacy for [facility] Fwd Exam Detailed Diagnoses Pneumonia due to COVID-19 virus U07.1; J12.82 Generalized anxiety disorder F41.1 GERD (gastroesophageal reflux disease) K21.9 Esophagitis presence: esophagitis presence not specified Major depressive disorder, recurrent severe without psychotic features F33.2 Diabetes mellitus E11.65 Diabetes mellitus complication status: with hyperglycemia Diabetes mellitus care home insulin use: without care home use Diabetes mellitus type: type 2 Hyperlipidemia E78.5 Hyperlipidemia type: unspecified
[2021-03-09 17:26] LABS: Glucose Point of Care 301 mg/dL (70-110)
[2021-03-09] MEDS: levofloxacin-dextrose 5 % 750 MG/150 ML PREMIX 100 MG IV (17:27)
[2021-03-09] MEDS: enoxaparin 40 mg/0.4 mL Syringe SUBCUT (17:27)
--- NOTE | 2021-03-09 17:39 | PC.NURSE ---
dr. nam gave orders to verbally educ on sticking to his diet and that no outside food would be allowed. Pt states, I guess I wont be eating anything then. I educ patient that it wasn't the amounts of food he was eating but, it was the types of foods he is eating (foods high in sugar). pt stated that he understood.
--- NOTE | 2021-03-09 19:33 | PC.NURSE ---
Shift report received from Pam GIBBS. Patient in bed awake/on phone. Denies pain. No s/s of pain or discomfort. O2 4L oxymask. IV patent/SL. No other needs voiced at this time.
--- NOTE | 2021-03-09 20:06 | PC.NURSE ---
i reported to nurse low o2 88
[2021-03-09] MEDS: trazodone 100 mg Tablet 300 MG PO (21:12)
[2021-03-09] MEDS: prazosin 5 mg Capsule PO (21:17)
[2021-03-09 21:18] LABS: Glucose Point of Care 258 mg/dL (70-110)
--- NOTE | 2021-03-09 23:49 | PC.NURSE ---
i reported low o2 88 to nurse
[2021-03-10] VITALS (13 sets, daily range): BP systolic 114–141; BP diastolic 65–80; PULSE 72–109; RESP 16–20; TEMP 36.6–37; O2SAT 90–96
--- NOTE | 2021-03-10 00:45 | PC.NURSE ---
Patient in bed /sleeping. No s/s of pain or discomfort. No needs noted at this time.
--- NOTE | 2021-03-10 03:13 | PC.NURSE ---
Patient in bed/sleeping. No s/s of pain or discomfort. No needs noted at this time.
[2021-03-10] MEDS: remdesivir 100 MG in sodium chloride 0.9% (100 ml) 80 ML IV (06:19)
[2021-03-10] MEDS: buPROPion XL (24 HR) 300 mg Tablet PO (06:20)
[2021-03-10] MEDS: fluoxetine 20 mg Capsule 80 MG PO (06:20)
[2021-03-10 06:36] LABS: Erythrocyte Sedimentation Rate 29 mm/hr (0-10)
--- NOTE | 2021-03-10 06:43 | PC.NURSE ---
Verbal authorization from patient to release medical information to yogesh Dooley.
[2021-03-10 06:50] LABS: C Reactive Protein 30.2 mg/L (0.0-4.9); Ferritin 789 ng/mL (30-400); Lactate Dehydrogenase 275 U/L (135-225)
[2021-03-10 07:00] LABS: D Dimer 1.78 ug/mIFEU (0-0.59)
[2021-03-10] MEDS: budesonide 0.5 mg/2 mL Neb INHALATION (08:42)
[2021-03-10] MEDS: ipratropium-albuterol 3 mL Neb INHALATION ×3 (08:42→15:52)
[2021-03-10] MEDS: atorvastatin 40 mg Tablet 20 MG PO (09:32)
[2021-03-10] MEDS: dexamethasone 10 mg/mL INJ 6 MG IVP (09:33)
[2021-03-10] MEDS: zinc gluconate 50 mg Tablet PO (09:34)
[2021-03-10] MEDS: ascorbic acid 500 mg Tablet PO ×2 (09:34→18:28)
[2021-03-10] MEDS: cholecalciferol (vitamin D3) 1,000 unit Tablet 1000 UNIT PO (09:34)
[2021-03-10] MEDS: gemfibrozil 600 mg Tablet PO (09:34)
[2021-03-10] MEDS: BuSPIRONE 10 mg Tablet 5 MG PO (09:35)
[2021-03-10 11:03] LABS: Glucose Point of Care 287 mg/dL (70-110)
[2021-03-10] MEDS: insulin lispro 100 unit/1 mL 7 UNIT SUBCUT ×2 (11:55→17:28)
[2021-03-10] MEDS: insulin lispro 100 unit/1 mL SUBCUT ×2 (12:50→18:39)
[2021-03-10 17:09] LABS: Glucose Point of Care 436 mg/dL (70-110)
--- NOTE | 2021-03-10 18:09 | P.PN_ITS ---
Subjective Subjective: Interval history: Patient was seen and examined this morning, overall he is doing better, supplemental oxygen requirement is coming down, completed remdesivir course, Medications: Reviewed: Yes Medication Review Details: Generic Name Dose Route Start Last Admin Trade Name Lynsey PRN Reason Stop Dose Admin Albuterol/Ipratrop ium 3 ml 03/06/21 17:20 03/07/21 12:51 Ipratropium-Albu terol 3 Ml Neb INHALATION 3 ml QID.RESPIRATORY S CH Administration Ascorbic Acid 500 mg 03/06/21 18:00 03/07/21 08:14 Ascorbic Acid 50 0 Mg Tablet PO 500 mg BID TRINY Administration Atorvastatin Calci um 20 mg 03/07/21 09:00 03/07/21 08:14 Atorvastatin 40 Mg Tablet PO 20 mg QD TRINY Administration Budesonide 0.5 mg 03/06/21 20:00 03/07/21 08:36 Budesonide 0.5 M g/2 Ml Neb INHALATION 0.5 mg BID.RESPIRATORY S CH Administration Bupropion HCl 300 mg 03/07/21 06:00 03/07/21 06:06 Bupropion Xl (24 Hr) 300 Mg Tablet PO 300 mg QAM TRINY Administration Dexamethasone 6 mg 03/07/21 08:00 03/07/21 08:14 Dexamethasone 10 Mg/Ml Inj IVP 6 mg Q24H TRINY Administration Enoxaparin Sodium 40 mg 03/06/21 17:20 03/06/21 18:05 Enoxaparin 40 Mg /0.4 Ml Syringe SUBCUT 40 mg Q24H TRINY Administration Fluoxetine HCl 80 mg 03/07/21 06:00 03/07/21 06:06 Fluoxetine 20 Mg Capsule PO 80 mg QAM TRINY Administration Gemfibrozil 600 mg 03/07/21 09:00 03/07/21 08:14 Gemfibrozil 600 Mg Tablet PO 600 mg QD TRINY Administration Remdesivir 100 mg/ Sodium 80 mls @ 100 mls/ hr 03/07/21 06:00 03/07/21 08:25 Chloride IV 03/10/21 06:47 Infused Q24H TRIYN Infusion Levofloxacin/Dextr ose 750 mg in 150 mls @ 100 mls/hr 03/06/21 17:20 03/06/21 19:35 Levaquin-D5w IV Infused Q24H TRINY Infusion Protocol Insulin Human Lisp ro 0 unit 03/06/21 18:00 03/07/21 12:54 Insulin Lispro 1 00 Unit/1 Ml SUBCUT 8 unit TIDWM TRINY Administration Protocol [place]ra[place]-1-Vayt Ethyl Esters 2,000 mg 03/07/21 09:00 03/07/21 08:14 [place]-3 Fatty Ac ids 1,000 Mg Capsu le PO 2,000 mg BID TRINY Administration Pantoprazole Sodiu m 40 mg 03/07/21 09:00 03/07/21 08:[address] 40 Mg Tablet PO 40 mg DAILY TRINY Administration Prazosin HCl 5 mg 03/06/21 21:00 03/06/21 20:00 Prazosin 5 Mg Ca psule PO 5 mg BEDTIME TRINY Administration Trazodone HCl 300 mg 03/06/21 21:00 03/06/21 22:28 Trazodone 100 Mg Tablet PO 300 mg BEDTIME TRINY Administration Vitamin D 1,000 unit 03/07/21 09:00 03/07/21 08:14 Cholecalciferol (Vitamin D3) 1,000 Unit Tablet PO 1,000 unit DAILY TRINY Administration Zinc Gluconate 50 mg 03/07/21 09:00 03/07/21 08:14 Zinc Gluconate 5 0 Mg Tablet PO 50 mg DAILY TRINY Administration Vitals/I&O/Wt Last Vital Signs Temp 97.8 F 03/10/21 15:24 Pulse 107 H 03/10/21 15:55 Resp 18 03/10/21 15:52 BP 114/71 03/10/21 15:24 Pulse Ox 96 03/10/21 15:52 03/10/21 03/10/21 03/10/21 06:59 14:59 22:59 Intake Total 480 / 1710 540 / 540 Output Total 520 / 1370 500 / 500 Balance -40 / 340 40 / 40 Physical Exam Const: COMMON NORMALS: patient oriented x3 HENMT: COMMON NORMALS: normocephalic and atraumatic HEAD & SCALP: normocephalic and atraumatic Resp: COMMON NORMALS: clear to auscultation bilaterally AUSCULTATION: clear to auscultation bilaterally Cardio: COMMON NORMALS: regular rate, regular rhythm, S1 normal heart sound present, S2 normal heart sound present, No gallops present (Cardio), No murmurs present (Cardio), No rub (Cardio) and Peripheral pulses 2+ throughout RATE: regular rate RHYTHM: regular rhythm HEART SOUNDS: S1 normal heart sound present and S2 normal heart sound present PERIPHERAL PULSES: Peripheral pulses 2+ throughout GI: COMMON NORMALS: Normal to inspection, nondistended, normoactive bowel sounds present, Soft to palpation, non-tender, No hepatosplenomegaly present and no masses AUSCULTATION: Yes normoactive bowel sounds PALPATION: Yes Soft to palpation and Yes No hepatosplenomegaly present RECTAL EXAM: Yes deferred Extremity: COMMON NORMALS: no clubbing, cyanosis or edema and no pedal edema Neuro: COMMON NORMALS: patient oriented x3 Data : 03/09/21 05:16 03/09/21 05:16 Micro: Microbiology 03/07/21 21:18 Gram Stain - Final Sputum - Expectorated Sputum Sputum Culture - Final A&P Assessment and plan (1) Pneumonia due to COVID-19 virus: Pneumonia due to COVID-19 virus: -CT angiogram of the chest: No PE, b/l diffuse groundglass opacity -2D echo: No LV size and systolic function, EF 60% , normal RV size and systolic function,Trivial pericardial effusion. -Bilateral lower extremity Doppler vein; no DVT: -Bacterial antigen panel negative, blood culture negative, sputum Gram stain: Rare gram-positive cocci in pairs, rare gram-negative rods. -Procalcitonin: 0.10 -Continue to monitor inflammatory markers (ESR CRP D-dimer, ferritin LDH) -Decadron for 10 days -Remdesivir day for 5 days --Vitamin C, vitamin D, zinc -Empirically on levofloxacin -He is on multiple antipsychotic medications, need to monitor QTc interval closely -Telemetry monitoring -Incentive spirometer, flutter valve -SSI -Lovenox for DVT prophylaxis Status: Acute (2) Generalized anxiety disorder: Status: Acute (3) GERD (gastroesophageal reflux disease): Status: Acute Qualifiers: Esophagitis presence: esophagitis presence not specified Qualified Code(s): K21.9 - Gastro-esophageal reflux disease without esophagitis (4) Major depressive disorder, recurrent severe without psychotic features: Status: Acute (5) Diabetes mellitus: Lantus 20 units subcu twice daily High-dose sliding scale insulin 7 units insulin lispro premeal Status: Acute Qualifiers: Diabetes mellitus complication status: with hyperglycemia Diabetes mellitus correction insulin use: without intermediate project manager use Diabetes mellitus type: type 2 Qualified Code(s): E11.65 - Type 2 diabetes mellitus with hyperglycemia (6) Hyperlipidemia: Status: Acute Qualifiers: Hyperlipidemia type: unspecified Qualified Code(s): E78.5 - Hyperlipidemia, unspecified Attestations Medical Necessity Statement*: Patient needs to be in hospital for management of pneumonia. Coding Level of Care Code Acute Facilities Operator for [facility] Fwd Exam Detailed Diagnoses Pneumonia due to COVID-19 virus U07.1; J12.82 Generalized anxiety disorder F41.1 GERD (gastroesophageal reflux disease) K21.9 Esophagitis presence: esophagitis presence not specified Major depressive disorder, recurrent severe without psychotic features F33.2 Diabetes mellitus E11.65 Diabetes mellitus complication status: with hyperglycemia Diabetes mellitus correction insulin use: without correction use Diabetes mellitus type: type 2 Hyperlipidemia E78.5 Hyperlipidemia type: unspecified
[2021-03-10] MEDS: levofloxacin-dextrose 5 % 750 MG/150 ML PREMIX 100 MG IV (18:28)
[2021-03-10] MEDS: enoxaparin 40 mg/0.4 mL Syringe SUBCUT (18:28)
[2021-03-10] MEDS: prazosin 5 mg Capsule PO (21:05)
[2021-03-10] MEDS: insulin glargine 100 units/1 mL 20 UNIT SUBCUT (21:05)
[2021-03-10] MEDS: trazodone 100 mg Tablet 300 MG PO (21:05)
[2021-03-10 21:08] LABS: Glucose Point of Care 305 mg/dL (70-110)
[2021-03-11] VITALS (14 sets, daily range): BP systolic 106–146; BP diastolic 64–82; PULSE 66–100; RESP 16–19; TEMP 36.8–37.1; O2SAT 87–95
[2021-03-11] MEDS: fluoxetine 20 mg Capsule 80 MG PO (06:25)
[2021-03-11] MEDS: buPROPion XL (24 HR) 300 mg Tablet PO (06:26)
[2021-03-11] MEDS: insulin glargine 100 units/1 mL 20 UNIT SUBCUT (06:57)
[2021-03-11] MEDS: insulin lispro 100 unit/1 mL 7 UNIT SUBCUT ×2 (06:58→17:35)
[2021-03-11 06:59] LABS: Basophils % 0.2 %; Eosinophils # 0.2 10^3/uL (0.0-0.8); Eosinophils % 1.7 %; Hematocrit 34.4 % (42.0-52.0); Hemoglobin 11.9 g/dL (11.7-16.6); Lymphocytes # 1.2 10^3/uL (0.8-4.8); Lymphocytes % 12.7 %; Mean Corpuscular HGB Conc 34.6 g/dL (30.0-36.0); Mean Corpuscular Hemoglobin 29.6 pg (28.0-34.0); Mean Corpuscular Volume 85.6 fl (80-94); Mean Platelet Volume 10.1 fL (7.4-10.4); Monocytes # 0.9 10^3/uL (0.2-0.9); Monocytes % 9.8 %; Neutrophils % 72.9 %; Nucleated Red Blood Cells % 0 %; Platelet Count 328 10^3/cmm (130-400); Red Blood Count 4.02 10^6/uL (4.1-5.3); Red Cell Distribution Width 12.4 % (12.1-15.1); White Blood Count 9.6 10^3/uL (4.0-10.0)
[2021-03-11 07:11] LABS: Anion Gap 15.8 (5-19); Blood Urea Nitrogen 17 mg/dL (6-20); Calcium 8.7 mg/dL (8.5-10.5); Carbon Dioxide 22 mmol/L (22-29); Chloride 103 mmol/L (98-107); Glomerular Filtration Rate 102.7 mL/min (90-130); Glucose 88 mg/dL (65-115); Osmolality Calculated 285 mOsm/kg (285-295); Potassium 3.8 mmol/L (3.5-5.1); Sodium 137 mmol/L (136-145)
[2021-03-11 07:45] LABS: Glucose Point of Care 254 mg/dL (70-110)
[2021-03-11] MEDS: budesonide 0.5 mg/2 mL Neb INHALATION (07:45)
[2021-03-11] MEDS: ipratropium-albuterol 3 mL Neb INHALATION ×3 (07:45→16:06)
[2021-03-11] MEDS: insulin lispro 100 unit/1 mL SUBCUT ×3 (08:55→18:26)
[2021-03-11] MEDS: dexamethasone 10 mg/mL INJ 6 MG IVP (08:56)
[2021-03-11] MEDS: cholecalciferol (vitamin D3) 1,000 unit Tablet 1000 UNIT PO (08:57)
[2021-03-11] MEDS: ascorbic acid 500 mg Tablet PO ×2 (08:57→18:00)
[2021-03-11] MEDS: zinc gluconate 50 mg Tablet PO (08:57)
[2021-03-11] MEDS: gemfibrozil 600 mg Tablet PO (08:58)
[2021-03-11] MEDS: atorvastatin 40 mg Tablet 20 MG PO (08:58)
[2021-03-11 09:25] LABS: Glucose Point of Care 212 mg/dL (70-110)
[2021-03-11 10:49] LABS: Glucose Point of Care 352 mg/dL (70-110)
--- NOTE | 2021-03-11 15:19 | P.PN_ITS ---
Subjective Subjective: Interval history: Patient was seen and examined this morning, overall he is doing better, supplemental oxygen requirement is coming down, completed remdesivir course, Medications: Reviewed: Yes Medication Review Details: Generic Name Dose Route Start Last Admin Trade Name Lynsey PRN Reason Stop Dose Admin Albuterol/Ipratrop ium 3 ml 03/06/21 17:20 03/07/21 12:51 Ipratropium-Albu terol 3 Ml Neb INHALATION 3 ml QID.RESPIRATORY S CH Administration Ascorbic Acid 500 mg 03/06/21 18:00 03/07/21 08:14 Ascorbic Acid 50 0 Mg Tablet PO 500 mg BID TRINY Administration Atorvastatin Calci um 20 mg 03/07/21 09:00 03/07/21 08:14 Atorvastatin 40 Mg Tablet PO 20 mg QD TRINY Administration Budesonide 0.5 mg 03/06/21 20:00 03/07/21 08:36 Budesonide 0.5 M g/2 Ml Neb INHALATION 0.5 mg BID.RESPIRATORY S CH Administration Bupropion HCl 300 mg 03/07/21 06:00 03/07/21 06:06 Bupropion Xl (24 Hr) 300 Mg Tablet PO 300 mg QAM TRINY Administration Dexamethasone 6 mg 03/07/21 08:00 03/07/21 08:14 Dexamethasone 10 Mg/Ml Inj IVP 6 mg Q24H TRINY Administration Enoxaparin Sodium 40 mg 03/06/21 17:20 03/06/21 18:05 Enoxaparin 40 Mg /0.4 Ml Syringe SUBCUT 40 mg Q24H TRINY Administration Fluoxetine HCl 80 mg 03/07/21 06:00 03/07/21 06:06 Fluoxetine 20 Mg Capsule PO 80 mg QAM TRINY Administration Gemfibrozil 600 mg 03/07/21 09:00 03/07/21 08:14 Gemfibrozil 600 Mg Tablet PO 600 mg QD TRINY Administration Remdesivir 100 mg/ Sodium 80 mls @ 100 mls/ hr 03/07/21 06:00 03/07/21 08:25 Chloride IV 03/10/21 06:47 Infused Q24H TRINY Infusion Levofloxacin/Dextr ose 750 mg in 150 mls @ 100 mls/hr 03/06/21 17:20 03/06/21 19:35 Levaquin-D5w IV Infused Q24H TRINY Infusion Protocol Insulin Human Lisp ro 0 unit 03/06/21 18:00 03/07/21 12:54 Insulin Lispro 1 00 Unit/1 Ml SUBCUT 8 unit TIDWM TRINY Administration Protocol Qactr-0-Actl Ethyl Esters 2,000 mg 03/07/21 09:00 03/07/21 08:14 [place]-3 Fatty Ac ids 1,000 Mg Capsu le PO 2,000 mg BID TRINY Administration Pantoprazole Sodiu m 40 mg 03/07/21 09:00 03/07/21 08:[address] 40 Mg Tablet PO 40 mg DAILY TRINY Administration Prazosin HCl 5 mg 03/06/21 21:00 03/06/21 20:00 Prazosin 5 Mg Ca psule PO 5 mg BEDTIME TRINY Administration Trazodone HCl 300 mg 03/06/21 21:00 03/06/21 22:28 Trazodone 100 Mg Tablet PO 300 mg BEDTIME TRINY Administration Vitamin D 1,000 unit 03/07/21 09:00 03/07/21 08:14 Cholecalciferol (Vitamin D3) 1,000 Unit Tablet PO 1,000 unit DAILY TRINY Administration Zinc Gluconate 50 mg 03/07/21 09:00 03/07/21 08:14 Zinc Gluconate 5 0 Mg Tablet PO 50 mg DAILY TRINY Administration Vitals/I&O/Wt Last Vital Signs Temp 98.2 F 03/11/21 12:00 Pulse 87 03/11/21 12:00 Resp 19 H 03/11/21 12:00 BP 127/75 03/11/21 12:00 Pulse Ox 94 03/11/21 12:00 03/11/21 03/11/21 03/11/21 06:59 14:59 22:59 Intake Total 450 / 1550 720 / 720 Output Total 1100 / 1600 Balance -650 / -50 720 / 720 Physical Exam Const: COMMON NORMALS: patient oriented x3 HENMT: COMMON NORMALS: normocephalic and atraumatic HEAD & SCALP: normocephalic and atraumatic Resp: COMMON NORMALS: clear to auscultation bilaterally AUSCULTATION: clear to auscultation bilaterally Cardio: COMMON NORMALS: regular rate, regular rhythm, S1 normal heart sound present, S2 normal heart sound present, No gallops present (Cardio), No murmurs present (Cardio), No rub (Cardio) and Peripheral pulses 2+ throughout RATE: regular rate RHYTHM: regular rhythm HEART SOUNDS: S1 normal heart sound present and S2 normal heart sound present PERIPHERAL PULSES: Peripheral pulses 2+ throughout GI: COMMON NORMALS: Normal to inspection, nondistended, normoactive bowel sounds present, Soft to palpation, non-tender, No hepatosplenomegaly present and no masses AUSCULTATION: Yes normoactive bowel sounds PALPATION: Yes Soft to palpation and Yes No hepatosplenomegaly present RECTAL EXAM: Yes deferred Extremity: COMMON NORMALS: no clubbing, cyanosis or edema and no pedal edema Neuro: COMMON NORMALS: patient oriented x3 Data : 03/11/21 06:16 03/11/21 06:16 Micro: Microbiology 03/06/21 14:43 Blood Culture - Final Blood NO GROWTH AFTER 5 DAYS 03/06/21 14:40 Blood Culture - Final Blood NO GROWTH AFTER 5 DAYS 03/07/21 21:18 Gram Stain - Final Sputum - Expectorated Sputum Sputum Culture - Final A&P Assessment and plan (1) Pneumonia due to COVID-19 virus: Pneumonia due to COVID-19 virus: -CT angiogram of the chest: No PE, b/l diffuse groundglass opacity -2D echo: No LV size and systolic function, EF 60% , normal RV size and systolic function,Trivial pericardial effusion. -Bilateral lower extremity Doppler vein; no DVT: -Bacterial antigen panel negative, blood culture negative, sputum Gram stain: Rare gram-positive cocci in pairs, rare gram-negative rods. -Procalcitonin: 0.10 -Continue to monitor inflammatory markers (ESR CRP D-dimer, ferritin LDH) -Decadron for 10 days -Remdesivir day for 5 days --Vitamin C, vitamin D, zinc -Empirically on levofloxacin -He is on multiple antipsychotic medications, need to monitor QTc interval closely -Telemetry monitoring -Incentive spirometer, flutter valve -SSI -Lovenox for DVT prophylaxis Status: Acute (2) Generalized anxiety disorder: Status: Acute (3) GERD (gastroesophageal reflux disease): Status: Acute Qualifiers: Esophagitis presence: esophagitis presence not specified Qualified Code(s): K21.9 - Gastro-esophageal reflux disease without esophagitis (4) Major depressive disorder, recurrent severe without psychotic features: Status: Acute (5) Diabetes mellitus: Lantus 20 units subcu twice daily High-dose sliding scale insulin 7 units insulin lispro premeal Status: Acute Qualifiers: Diabetes mellitus type: type 2 Diabetes mellitus [facility] insulin use: without exterminator helper termite use Diabetes mellitus complication status: with hyperglycemia Qualified Code(s): E11.65 - Type 2 diabetes mellitus with hyperglycemia (6) Hyperlipidemia: Status: Acute Qualifiers: Hyperlipidemia type: unspecified Qualified Code(s): E78.5 - Hyperlipidemia, unspecified Attestations Medical Necessity Statement*: patient is still in hospital management of pneumonia. Coding Level of Care Code Acute Sas Programmer Remote for [facility] Fwd Diagnoses Pneumonia due to COVID-19 virus U07.1; J12.82 Generalized anxiety disorder F41.1 GERD (gastroesophageal reflux disease) K21.9 Esophagitis presence: esophagitis presence not specified Major depressive disorder, recurrent severe without psychotic features F33.2 Diabetes mellitus E11.65 Diabetes mellitus type: type 2 Diabetes mellitus exterminator helper termite insulin use: without exterminator helper termite use Diabetes mellitus complication status: with hyperglycemia Hyperlipidemia E78.5 Hyperlipidemia type: unspecified
[2021-03-11 17:00] LABS: Glucose Point of Care 396 mg/dL (70-110)
[2021-03-11] MEDS: levofloxacin-dextrose 5 % 750 MG/150 ML PREMIX 100 MG IV (17:58)
[2021-03-11] MEDS: enoxaparin 40 mg/0.4 mL Syringe SUBCUT (17:58)
[2021-03-11] MEDS: prazosin 5 mg Capsule PO (20:06)
[2021-03-11] MEDS: insulin glargine 100 units/1 mL 10 UNIT SUBCUT (20:06)
[2021-03-11 21:24] LABS: Glucose Point of Care 458 mg/dL (70-110)
[2021-03-11] MEDS: trazodone 100 mg Tablet 300 MG PO (21:42)
[2021-03-12] VITALS (7 sets, daily range): BP systolic 95–134; BP diastolic 53–70; PULSE 80–89; RESP 16–18; TEMP 36.8–36.9; O2SAT 84–90
--- NOTE | 2021-03-12 01:26 | PC.NURSE ---
i reported low 02 89 to nurse
--- NOTE | 2021-03-12 05:00 | XRR_ITS ---
PROCEDURE INFORMATION: Exam: XR Chest Exam date and time: 03/12/2021 5:00 AM Age: 50 years old Clinical indication: Shortness of breath; Prior surgery; Surgery type: Rotator cuff; Patient HX: F/u for covid pneumonia; Additional info: Pna TECHNIQUE: Imaging protocol: XR of the chest. Views: 1 view. COMPARISON: CR XR chest 1V portable [id number] 03/08/2021 12:42 PM FINDINGS: Lungs: Patchy bilateral peripheral opacities are again seen compatible with bilateral interstitial pneumonia. These findings are similar to those present 03/08/2021. Pleural spaces: Unremarkable. No pleural effusion. No pneumothorax. Heart/Mediastinum: Unremarkable. No cardiomegaly. Bones/joints: Unremarkable. XR/XR chest 1V portable [id number] IMPRESSION: Patchy peripheral ground-glass opacities are again seen similar to those present 03/08/2021 compatible with a patchy bilateral interstitial pneumonia.
[2021-03-12] MEDS: fluoxetine 20 mg Capsule 80 MG PO (06:21)
[2021-03-12] MEDS: buPROPion XL (24 HR) 300 mg Tablet PO (06:22)
[2021-03-12] MEDS: insulin lispro 100 unit/1 mL 7 UNIT SUBCUT (06:45)
[2021-03-12] MEDS: insulin glargine 100 units/1 mL 20 UNIT SUBCUT (06:45)
[2021-03-12 06:53] LABS: Basophils % 0.6 %; Eosinophils # 0.1 10^3/uL (0.0-0.8); Eosinophils % 1.6 %; Hematocrit 36.6 % (42.0-52.0); Hemoglobin 12.2 g/dL (11.7-16.6); Lymphocytes # 1.5 10^3/uL (0.8-4.8); Lymphocytes % 21.3 %; Mean Corpuscular HGB Conc 33.3 g/dL (30.0-36.0); Mean Corpuscular Hemoglobin 28.4 pg (28.0-34.0); Mean Corpuscular Volume 85.1 fl (80-94); Mean Platelet Volume 9.5 fL (7.4-10.4); Monocytes # 0.8 10^3/uL (0.2-0.9); Monocytes % 11.3 %; Neutrophils # 4.23 10^3/uL (1.8-7.7); Neutrophils % 61.8 %; Nucleated Red Blood Cells % 0 %; Platelet Count 337 10^3/cmm (130-400); Red Cell Distribution Width 12.5 % (12.1-15.1); White Blood Count 6.8 10^3/uL (4.0-10.0)
[2021-03-12 07:18] LABS: Anion Gap 14.4 (5-19); Blood Urea Nitrogen 15 mg/dL (6-20); Carbon Dioxide 23 mmol/L (22-29); Chloride 94 mmol/L (98-107); Glomerular Filtration Rate 89.7 mL/min (90-130); Glucose 85 mg/dL (65-115); Osmolality Calculated 266 mOsm/kg (285-295); Potassium 3.4 mmol/L (3.5-5.1); Sodium 128 mmol/L (136-145)
[2021-03-12] MEDS: budesonide 0.5 mg/2 mL Neb INHALATION (07:54)
[2021-03-12] MEDS: ipratropium-albuterol 3 mL Neb INHALATION (07:54)
[2021-03-12 07:58] LABS: Glucose Point of Care 106 mg/dL (70-110)
[2021-03-12] MEDS: dexamethasone 10 mg/mL INJ 6 MG IVP (08:25)
[2021-03-12] MEDS: cholecalciferol (vitamin D3) 1,000 unit Tablet 1000 UNIT PO (08:25)
[2021-03-12] MEDS: zinc gluconate 50 mg Tablet PO (08:25)
[2021-03-12] MEDS: pantoprazole DR 40 mg Tablet PO (08:25)
[2021-03-12] MEDS: gemfibrozil 600 mg Tablet PO (08:25)
[2021-03-12] MEDS: ascorbic acid 500 mg Tablet PO (08:25)
[2021-03-12] MEDS: BuSPIRONE 10 mg Tablet 5 MG PO (08:26)
[2021-03-12] MEDS: atorvastatin 40 mg Tablet 20 MG PO (08:28)
--- NOTE | 2021-03-12 12:22 | PC.NURSE ---
Removed IV intact. Patient tolerated well. Patient is A&Ox3. Respirations even and non-labored on 4 liters of oxygen. Reviewed discharge with patient at this time. Patient verbalized understanding of the need to make follow up appointment on Sunday and how to take medications. Patient assisted into wheel chair and pushed to private car.
--- NOTE | 2021-03-12 14:50 | PM.DCS ---
Discharge Providers Date of Admission: 03/06/21 12:50 Date of Discharge: March 12, 2021 Attending Provider at Admission: Mark Ho MD Attending Provider at Discharge: Pineda Rodriguez MD Primary Care Provider: ALEKSANDR Jaffe Diagnoses at Discharge Discharge Diagnosis (1) Pneumonia due to COVID-19 virus: Status: Acute (2) Generalized anxiety disorder: Status: Acute (3) GERD (gastroesophageal reflux disease): Status: Acute Qualifiers: Esophagitis presence: esophagitis presence not specified Qualified Code(s): K21.9 - Gastro-esophageal reflux disease without esophagitis (4) Major depressive disorder, recurrent severe without psychotic features: Status: Acute (5) Diabetes mellitus: Status: Acute Qualifiers: Diabetes mellitus type: type 2 Diabetes mellitus correction insulin use: without terminal block assembler use Diabetes mellitus complication status: with hyperglycemia Qualified Code(s): E11.65 - Type 2 diabetes mellitus with hyperglycemia (6) Hyperlipidemia: Status: Acute Qualifiers: Hyperlipidemia type: unspecified Qualified Code(s): E78.5 - Hyperlipidemia, unspecified Reason for Visit Reason for Visit: DIFF BREATHING/ COVID + Hospital Course Hospital Course 50 year old male with a past medical history of noninsulin-dependent type 2 diabetes mellitus, GERD, hyperlipidemia, depression anxiety, who presents to [facility] due to headache, body aches, subjective fevers, cough, shortness of breath. Has not received Covid vaccinations. Has not received flu vaccinations.He tested positive for Covid on March 04, 2021, he was discharged home with oxygen, 6 L, patient declined admission at that time. He was admitted for the management of Covid pneumonia,during the hospital stay he was managed as per Covid protocol.He completed the remdesivir course, he was kept on IV steroids, empirically on antibiotics, and other conservative respiratory support measures, CTA chest done during the hospital stay showed no pulmonary embolism Was consistent with Bilateral, predominantly peripheral, patches of ground-glass interstitial lung disease opacification with patches of early consolidated alveolar airspace disease consistent with active interstitial pneumonitis/pneumonia. 2D echo done during the hospital stay: Normal left ventricular size and systolic function with no regional wall motion abnormalities. Left ventricular ejection fraction is estimated at 60 %. Normal diastolic function. Normal right ventricular size and systolic function.Trivial pericardial effusion. No evidence of hemodynamic compromise. Bilateral lower extremity Doppler vein was negative for DVT.Blood cultures were negative, bacterial antigen panel was negative. Patient so far responded well to the above medical management, he qualified for 6 L oxygen on exertion. Patient has been advised to slowly build up his endurance, he will also follow-up with Dr. Hardy as an outpatient. Patient has been discharged in stable condition to home. Physical Exam Const: COMMON NORMALS: patient oriented x3 HENMT: COMMON NORMALS: normocephalic and atraumatic HEAD & SCALP: normocephalic and atraumatic Resp: COMMON NORMALS: clear to auscultation bilaterally AUSCULTATION: clear to auscultation bilaterally Cardio: COMMON NORMALS: regular rate, regular rhythm, S1 normal heart sound present, S2 normal heart sound present, No gallops present (Cardio), No murmurs present (Cardio), No rub (Cardio) and Peripheral pulses 2+ throughout RATE: regular rate RHYTHM: regular rhythm HEART SOUNDS: S1 normal heart sound present and S2 normal heart sound present PERIPHERAL PULSES: Peripheral pulses 2+ throughout GI: COMMON NORMALS: Normal to inspection, nondistended, normoactive bowel sounds present, Soft to palpation, non-tender, No hepatosplenomegaly present and no masses AUSCULTATION: Yes normoactive bowel sounds PALPATION: Yes Soft to palpation and Yes No hepatosplenomegaly present RECTAL EXAM: Yes deferred Extremity: COMMON NORMALS: no clubbing, cyanosis or edema and no pedal edema Neuro: COMMON NORMALS: patient oriented x3 Discharge Data Data Completed and Pending: Completed Studies During Hospitalization Category Date Time Status CT angio chest PE protcl [id number] Urge nt Cat Scan 03/06/21 16:47 Completed XR chest 1V esha ble [id number] Routine Exams 03/08/21 12:30 Completed XR chest 1V esha ble [id number] Routine Exams 03/12/21 05:00 Completed XR chest 1V esha ble [id number] Urgent Exams 03/06/21 11:16 [place] [id number] Routin e Ultrasound 03/07/21 12:46 Completed CV. echo complete * [id number] Routine Ultrasound 03/07/21 17:20 Completed Labs from last 24 hours 03/12/21 03/12/21 03/12/21 07:53 06:39 06:39 WBC 6.8 RBC 4.30 Hgb 12.2 Hct 36.6 L MCV 85.1 MCH 28.4 MCHC 33.3 RDW 12.5 Plt Count 337 MPV 9.5 Neut % (Auto) 61.8 Lymph % (Auto) 21.3 Nance % (Auto) 11.3 Eos % (Auto) 1.6 Baso % (Auto) 0.6 Neut # (Auto) 4.23 Lymph # (Auto) 1.5 Nance # (Auto) 0.8 Eos # (Auto) 0.1 Baso # (Auto) 0.0 Nucleated RBC % (a uto) 0 Nucleated RBCs # 0.0 Sodium 128 L Potassium 3.4 L Chloride 94 L Carbon Dioxide 23 Anion Gap 14.4 BUN 15 Creatinine 0.9 GFR Calculation 89.7 L Glucose 85 POC Glucose 106 Calculated Osmolal ity 266 L Calcium 9.0 03/11/21 03/11/21 21:05 16:48 WBC RBC Hgb Hct MCV MCH MCHC RDW Plt Count MPV Neut % (Auto) Lymph % (Auto) Nance % (Auto) Eos % (Auto) Baso % (Auto) Neut # (Auto) Lymph # (Auto) Nance # (Auto) Eos # (Auto) Baso # (Auto) Nucleated RBC % (a uto) Nucleated RBCs # Sodium Potassium Chloride Carbon Dioxide Anion Gap BUN Creatinine GFR Calculation Glucose POC Glucose 458 H 396 H Calculated Osmolal ity Calcium Vitals: Last Vital Signs Temp 98.2 F 03/12/21 12:20 Pulse 80 03/12/21 12:20 Resp 18 03/12/21 12:20 BP 100/60 03/12/21 12:20 Pulse Ox 90 03/12/21 12:20 Discharge Plan Discharge Patient Disposition: Home Condition: Stable Prescriptions: New dexamethasone 2 mg tablet 2 mg PO DAILY Qty: 5 RF: 0 Pulmicort Flexhaler 180 mcg/actuation aerosol powdr breath activated 1 inh inhalation BID Qty: 1 RF: 1 benzonatate 100 mg Capsule 100 mg PO TID PRN (Reason: Cough) 14 Days Qty: 30 RF: 0 Vitamin C 500 mg Tablet 500 mg PO BID 7 Days Qty: 14 RF: 0 zinc gluconate 50 mg Tablet 50 mg PO DAILY 7 Days Qty: 7 RF: 0 levofloxacin 500 mg tablet 500 mg PO DAILY 5 Days Qty: 5 RF: 0 Advair HFA 115-21 mcg/actuation HFA aerosol inhaler 2 inh inhalation BID Qty: 12 RF: 0 Continued lidocaine 5 % adhesive patch,medicated 1 patch topical DAILY Qty: 30 RF: 2 bupropion HCl [Wellbutrin XL] 300 mg tablet extended release 24 hr 300 mg PO QAM Qty: 30 RF: 2 fluoxetine [Prozac] 40 mg capsule 80 mg PO QAM Qty: 60 RF: 2 hydroxyzine HCl 50 mg tablet 50 mg PO QID PRN (Reason: anxiety) Qty: 120 RF: 2 propranolol 20 mg tablet 20 mg PO TID PRN (Reason: anxiety) Qty: 90 RF: 2 diclofenac sodium 75 mg tablet,delayed release (DR/EC) 75 mg PO BID PRN (Reason: pain) Qty: 60 RF: 5 cyclobenzaprine 10 mg tablet 10 mg PO TID PRN (Reason: muscle spasm) Qty: 30 RF: 0 mupirocin 2 % ointment 1 applic topical BID Qty: 22 RF: 0 oxybutynin chloride 5 mg tablet 5 mg PO BID RF: 0 tramadol 50 mg tablet 50 mg PO TID PRN (Reason: pain) 30 Days Qty: 60 RF: 0 (DME) four point cane See Rx Instructions .Route .MEDSUPPLY Qty: 1 RF: 0 (DME) catheter leg bags regular and large See Rx Instructions .Route .MEDSUPPLY Qty: 10 RF: 0 omega-3 acid ethyl esters [Lovaza] 1 gram capsule 2 cap PO BID 30 Days Qty: 120 RF: 2 glipizide 10 mg tablet See Rx Instructions .ROUTE .COMPLEX Qty: 60 RF: 2 gemfibrozil 600 mg tablet See Rx Instructions .ROUTE .COMPLEX Qty: 30 RF: 2 esomeprazole magnesium 40 mg capsule,delayed release(DR/EC) See Rx Instructions .ROUTE .COMPLEX Qty: 30 RF: 2 lovastatin 20 mg tablet See Rx Instructions .ROUTE .COMPLEX Qty: 30 RF: 2 acetaminophen 500 mg tablet 500 mg PO Q6H PRN (Reason: pain) 5 Days Qty: 20 RF: 0 ondansetron HCl [Zofran] 4 mg tablet 4 mg PO TID PRN (Reason: nausea and vomiting) 4 Days Qty: 12 RF: 0 buspirone 5 mg tablet 5 mg PO TID PRN (Reason: Anxiety) RF: 0 prazosin 5 mg capsule 5 mg PO BEDTIME RF: 0 trazodone 100 mg tablet 300 mg PO BEDTIME RF: 0 metformin 1,000 mg tablet 1,000 mg PO DAILY RF: 0 Jardiance 25 mg tablet 12.5 mg PO DAILY RF: 0 Discontinued prednisone 50 mg tablet 50 mg PO DAILY 5 Days Qty: 5 RF: 0 Discharge Orders: Discharge Order (Routine); Ordered 03/12/21 Ordered By: Pineda Rodriguez Other Ambulatory Orders: DME: Oxygen (Order) Location: None Selected Ordered By: Pineda Rodriguez Referrals: Clare Holm FNP [Primary Care Provider] - 2 weeks (Please call Sunday morning to schedule a hospital follow-up appointment. ) Fabrizio Hardy MD [Physician] - 2 weeks (Please make an appointment for [address] Hardy. ) Discharge Diet: Diabetic Discharge Activity: Increase activity as tolerated Patient Instructions: Benzonatate (By mouth), Budesonide (By breathing), Dexamethasone (By mouth), COVID-19 (Coronavirus Disease 2019) (GEN), Social Distancing Guidelines for COVID-19 (GEN), Opioid Safety Discharge Attestations Time Spent in Discharge Care*: less than 30 min Specific Discharge Activities: educating patient, educating and/or supporting family/caregiver, discussing with pcp/other providers, discussing with case repairer/social workers/dc planners, documenting/other paperwork and evaluating patient/reviewing data Status at Discharge: Cognitive status at discharge: cognitively intact, Behavioral status at discharge: cooperative, Functional status at discharge: independent ambulation Overall status at discharge: patient is progressing back to baseline Quality Metrics Clinical Quality Measures During this hospital stay, did patient experience: None Coding Level of Care Code Acute [facility] DC note Diagnoses Pneumonia due to COVID-19 virus U07.1; J12.82 Generalized anxiety disorder F41.1 GERD (gastroesophageal reflux disease) K21.9 Esophagitis presence: esophagitis presence not specified Major depressive disorder, recurrent severe without psychotic features F33.2 Diabetes mellitus E11.65 Diabetes mellitus type: type 2 Diabetes mellitus terminal block assembler insulin use: without terminal block assembler use Diabetes mellitus complication status: with hyperglycemia Hyperlipidemia E78.5 Hyperlipidemia type: unspecified
== END 2021-03-12 12:20 | disposition home or self-care (01) | DRG 177 ==
LOC: ER 12:50 → MEDSURG 16:33
PROVIDERS: Admitting Provider Family Medicine; Emergency Provider Emergency Medicine; PCP Nurse Practitioner Family; Visit Provider Internal Medicine
DX: U07.1 COVID-19 (principal); J12.82 Pneumonia due to coronavirus disease 2019; F33.2 Major depressive disorder, recurrent severe without psychotic features; E11.65 Type 2 diabetes mellitus with hyperglycemia; K21.9 Gastro-esophageal reflux disease without esophagitis; E78.5 Hyperlipidemia, unspecified; F41.1 Generalized anxiety disorder; Z87.891 Personal history of nicotine dependence; Z79.84 Long term (current) use of oral hypoglycemic drugs
CPT/HCPCS: 36415; 36416; 36600; 71045; 71275; 80048; 80053; 82728; 82803; 82962; 83615; 83735; 83880; 84100; 84145; 84443; 84484; 85025; 85378; 85651; 86140; 86403; 87040; 87070; 87205; 93005; 93306; 93970; 94640; 94664; 96365; 96372; 96375; 99285; J1100; J1650; J1815 ×2; J1940; J1956; J7040; J7626; Q9967

== ENCOUNTER → 2021-03-21 14:29 | Outpatient (BNVA) | payer OTHER, SELFPAY | PROVIDERS: PCP Nurse Practitioner Family; Visit Provider Nurse Practitioner Family | DX: U07.1 COVID-19 (principal); J12.82 Pneumonia due to coronavirus disease 2019 | CPT/HCPCS: 71046 ==

== ENCOUNTER 2021-05-09 07:04 | Outpatient (CLI) | payer OTHER, SELFPAY ==
--- NOTE | 2021-05-09 07:09 | CT_ITS ---
WS: [id number] CT ABDOMEN PELVIS TECHNIQUE: Contrast-enhanced CT of the abdomen and pelvis with coronal and sagittal reformatted image s. CLINICAL INFORMATION: 6 month f/u renal cancer COMPARISON: CT June 30, 2020 DLP: 1842.[address] scans at [facility] use at least one of these dose optimization techniques: automated e xposure control; mA and/or kV adjustment per patient size (includes targeted exams where dose is matc hed to clinical indication); or iterative reconstruction. FINDINGS: Hepatomegaly with diffuse fatty infiltration. Normal portal vein and splenic vein. Splenomegaly. Norm al GE junction. Slight hazy groundglass infiltrates in the lung bases. Adrenal glands are normal. Nor mal LEFT renal parenchymal enhancement. No hydronephrosis. Postoperative changes partial RIGHT nephre ctomy with resection of the previously described upper pole renal mass. Small amount of low-attenuati on fluid in the upper pole partial nephrectomy bed. No evidence of enhancing residual or recurrent di sease. Normal portal vein and splenic vein. Normal caliber abdominal aorta. Normal celiac and SMA. Normal sigmoid colon. Normal appendix in the RIGHT lower quadrant. No abdominal or pelvic lymphadenop athy. No inguinal lymphadenopathy. CT/CT abdomen pelvis w con* [id number] IMPRESSION: 1. Postoperative changes partial RIGHT nephrectomy with resection of the previ ously described renal mass. No evidence of recurrent or residual enhancing dise ase. 2. No hydronephrosis in either kidney. 3. Adrenal glands are normal. 4. Hepatomegaly with diffuse fatty infiltration. Mild splenomegaly. 5. Slight hazy groundglass infiltrates in the lung bases. Recommend correlatio n for viral pneumonia including Covid 19 pneumonia.
[2021-05-09] MEDS: iohexol 300 mg/mL 100 mL Btl IV (08:20)
[2021-05-09 10:22] LABS: Basophils # 0.1 10^3/uL (0.0-0.1); Eosinophils # 0.1 10^3/uL (0.0-0.8); Eosinophils % 1.4 %; Hematocrit 42.8 % (42.0-52.0); Hemoglobin 14.6 g/dL (11.7-16.6); Lymphocytes # 1.9 10^3/uL (0.8-4.8); Lymphocytes % 20.6 %; Mean Corpuscular HGB Conc 34.1 g/dL (30.0-36.0); Mean Corpuscular Hemoglobin 30.1 pg (28.0-34.0); Mean Corpuscular Volume 88.2 fl (80-94); Monocytes # 0.8 10^3/uL (0.2-0.9); Monocytes % 8.9 %; Neutrophils # 6.06 10^3/uL (1.8-7.7); Neutrophils % 67.7 %; Nucleated Red Blood Cells % 0 %; Platelet Count 277 10^3/cmm (130-400); Red Blood Count 4.85 10^6/uL (4.1-5.3); Red Cell Distribution Width 13.6 % (12.1-15.1)
[2021-05-09 10:48] LABS: Anion Gap 18.7 (5-19); Blood Urea Nitrogen 20 mg/dL (6-20); Calcium 8.7 mg/dL (8.5-10.5); Carbon Dioxide 22 mmol/L (22-29); Chloride 98 mmol/L (98-107); Glomerular Filtration Rate 58.7 mL/min (90-130); Glucose 184 mg/dL (65-115); Osmolality Calculated 285 mOsm/kg (285-295); Potassium 4.7 mmol/L (3.5-5.1); Sodium 134 mmol/L (136-145)
== END 2021-05-09 07:05 | disposition home or self-care (01) ==
PROVIDERS: Urology; PCP Nurse Practitioner Family; Visit Provider Nurse Practitioner Family
DX: C64.9 Malignant neoplasm of unspecified kidney, except renal pelvis (principal); Z90.5 Acquired absence of kidney; R16.0 Hepatomegaly, not elsewhere classified; K76.0 Fatty (change of) liver, not elsewhere classified; R16.1 Splenomegaly, not elsewhere classified; R91.8 Other nonspecific abnormal finding of lung field
CPT/HCPCS: 74177; 80048; 85025

== ENCOUNTER → 2021-06-13 15:04 | Outpatient (BNVA) | payer OTHER, SELFPAY | PROVIDERS: PCP Nurse Practitioner Family; Visit Provider Urology | DX: N99.114 Postprocedural urethral stricture, male, unspecified (principal) | CPT/HCPCS: 80048; 81003; 85025; 87086 ==

== ENCOUNTER → 2021-07-07 16:53 | Outpatient (BNVA) | payer OTHER, SELFPAY | PROVIDERS: PCP Nurse Practitioner Family; Visit Provider Nurse Practitioner Family | DX: E11.65 Type 2 diabetes mellitus with hyperglycemia (principal); N28.89 Other specified disorders of kidney and ureter; E78.5 Hyperlipidemia, unspecified; G89.29 Other chronic pain | CPT/HCPCS: 80053; 80061; 82043; 83036; 85025 ==

== ENCOUNTER 2021-08-12 07:23 | Day surgery (SDC) | payer OTHER, SELFPAY ==
[2021-08-09 10:18] VITALS: BMI 33.1
[2021-08-12 07:54] VITALS: BP 148/86; PULSE 72; RESP 18; TEMP 36.5; O2SAT 96
[2021-08-12] MEDS: sodium chloride 0.9% 1,000 ML 30 ML IV (08:06)
--- NOTE | 2021-08-12 08:34 | ANES.PREANE2 ---
Pre-Anesthetic Assessment Height/Weight: Height 1.73 m Weight 98.883 kg Temp Pulse Resp BP Pulse Ox 97.7 F 72 18 148/86 96 08/12/21 07:54 08/12/21 07:54 08/12/21 07:54 08/12/21 07:54 08/12/21 07:54 Preop Diagnosis: need for colon screening Operation Date: 08/12/21 09:00 Proposed Procedures p Screening colonoscopy 28555,Z12.11(Not Applicable) - Louie Veliz DO Familial anesthetic complications: none Was Beta Jill taken within 24 hours: Yes Was Clonidine taken within 24 hours: N/A Last intake: Intake Last Liquid Date 08/11/21 Last Liquid Time 20:00 Last Solid Date 08/11/21 Last Solid Time 12:00 Social No alcohol and No tobacco Exam alert, oriented x 3, clear to auscultation bilaterally and regular rate & rhythm Airway Mallampati: Class IV Dentition: other ( i just had some removed ) Comments: Comments: [facility] None reported CV/HEM None reported denies HTN None reported Hx renal cancer - half of R kidney removed Hepatic None reported Metabolic Diabetes Mellitus and Hyperlipidemia [facility] Lower Back Pain Anesthetic Plan ASA status: 3 Anesthesia: MAC Risk of > 500 ml blood loss (7ml/kg in children): No Medications/Allergies Home Medications Medication Instructions Recorded Confirmed Last Taken Type cyclobenzaprine 10 mg tablet 10 mg PO TID PRN #30 tab 05/17/20 08/12/21 08/11/21 Rx omega-3 acid ethyl esters 1 gram 2 cap PO BID 30 Days #120 cap 06/25/20 08/12/21 08/11/21 Rx capsule (Lovaza) oxybutynin chloride 5 mg tablet 5 mg PO BID 12/07/20 08/12/21 08/11/21 History catheter leg bags #10 ea 01/07/21 08/09/21 Unknown Rx empagliflozin 25 mg tablet 12.5 mg PO DAILY 03/06/21 08/12/21 08/11/21 History (Jardiance) metformin 1,000 mg tablet 1,000 mg PO DAILY 03/06/21 08/12/21 08/11/21 History nystatin 100,000 unit/mL oral 500,000 unit (5 mL) PO TID 7 Days 02/11/2408/12/21 08/11/21 Rx suspension #105 ml fluticasone propionate 115 2 inh INHALATION BID #12 g 04/26/21 08/12/21 08/11/21 Rx mcg-salmeterol 21 mcg/actuation HFA inhaler (Advair HFA) bupropion HCl 300 mg 24 hr tablet, 300 mg PO QAM #30 tab 05/13/21 08/12/21 08/11/21 Rx extended release (Wellbutrin XL) buspirone 5 mg tablet 5 mg PO TID #90 tab 05/13/21 08/12/21 08/11/21 Rx fluoxetine 40 mg capsule (Prozac) 80 mg PO QAM #60 cap 05/13/21 08/12/21 08/11/21 Rx hydroxyzine HCl 50 mg tablet 50 mg PO QID PRN #120 tab 05/13/21 08/12/21 08/11/21 Rx prazosin 5 mg capsule 5 mg PO BEDTIME #30 cap 05/13/21 08/12/21 08/11/21 Rx propranolol 20 mg tablet 20 mg PO TID PRN #90 tab 05/13/21 08/12/21 08/11/21 Rx trazodone 100 mg tablet 300 mg PO BEDTIME #90 tab 05/13/21 08/12/21 08/11/21 Rx esomeprazole magnesium 40 mg See Rx Instructions .ROUTE 05/18/21 08/12/21 08/11/21 Rx capsule,delayed release .COMPLEX #30 cap gemfibrozil 600 mg tablet See Rx Instructions .ROUTE 05/18/21 08/12/21 08/11/21 Rx .COMPLEX #30 tab glipizide 10 mg tablet See Rx Instructions .ROUTE 05/18/21 08/12/21 08/11/21 Rx .COMPLEX #60 tab lovastatin 20 mg tablet See Rx Instructions .ROUTE 05/18/21 08/12/21 08/11/21 Rx .COMPLEX #30 tab tramadol 50 mg tablet 50 mg PO TID PRN 30 Days #90 tab 07/07/21 08/12/21 08/11/21 Rx Allergies Allergy/AdvReac Type Severity Reaction Status Date / Time No Known Allergies Allergy Verified 08/12/21 07:47 Current Medications Generic Name Dose Route Start Last Admin Trade Name Freq PRN Reason Stop Dose Admin Sodium Chloride 1,000 mls @ 30 mls/hr 08/12/21 07:45 08/12/21 08:06 Sodium Chloride 0.9% IV 08/13/21 07:44 30 mls/hr .Q24H TRINY Administration PFSH Anesthesia Medical History Diabetes mellitus Generalized anxiety disorder GERD (gastroesophageal reflux disease) Hyperlipidemia Major depressive disorder, recurrent severe without psychotic features Pneumonia due to COVID-19 virus Psychiatric care Renal mass Surgical History Hx of rotator cuff surgery (~2009) Family History Family/Other Diabetes Hypertension Heart disease Social History Smoking and tobacco status: former smoker (Quit 27 years ago) Quit status (tobacco): has quit using tobacco Year quit tobacco: a long time Second hand smoke exposure: Yes Alcohol intake: never Caregiver/support person: Yes Lives independently: Yes Household members: spouse Marital status: 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
--- NOTE | 2021-08-12 09:13 | PM.HP ---
Providers/Chief Complaint Primary Care Provider: ALEKSANDR Jaffe Chief Complaint: colon screening History of Present Illness Chau Mauricio is a 50 year old male who is in need of his first colon screening. No complaints. Review of Systems General: Reports: 10 or more systems reviewed and unremarkable except in HPI and below Medications/Allergies Home Medications Medication Instructions Recorded Confirmed Last Taken Type cyclobenzaprine 10 mg tablet 10 mg PO TID PRN #30 tab 05/17/20 08/12/21 08/11/21 Rx omega-3 acid ethyl esters 1 gram 2 cap PO BID 30 Days #120 cap 06/25/20 08/12/21 08/11/21 Rx capsule (Lovaza) oxybutynin chloride 5 mg tablet 5 mg PO BID 12/07/20 08/12/21 08/11/21 History catheter leg bags #10 ea 01/07/21 08/09/21 Unknown Rx empagliflozin 25 mg tablet 12.5 mg PO DAILY 03/06/21 08/12/21 08/11/21 History (Jardiance) metformin 1,000 mg tablet 1,000 mg PO DAILY 03/06/21 08/12/21 08/11/21 History nystatin 100,000 unit/mL oral 500,000 unit (5 mL) PO TID 7 Days 04/13/21 08/12/21 08/11/21 Rx suspension #105 ml fluticasone propionate 115 2 inh INHALATION BID #12 g 04/26/21 08/12/21 08/11/21 Rx mcg-salmeterol 21 mcg/actuation HFA inhaler (Advair HFA) bupropion HCl 300 mg 24 hr tablet, 300 mg PO QAM #30 tab 05/13/21 08/12/21 08/11/21 Rx extended release (Wellbutrin XL) buspirone 5 mg tablet 5 mg PO TID #90 tab 05/13/21 08/12/21 08/11/21 Rx fluoxetine 40 mg capsule (Prozac) 80 mg PO QAM #60 cap 05/13/21 08/12/21 08/11/21 Rx hydroxyzine HCl 50 mg tablet 50 mg PO QID PRN #120 tab 05/13/21 08/12/21 08/11/21 Rx prazosin 5 mg capsule 5 mg PO BEDTIME #30 cap 05/13/21 08/12/21 08/11/21 Rx propranolol 20 mg tablet 20 mg PO TID PRN #90 tab 05/13/21 08/12/21 08/11/21 Rx trazodone 100 mg tablet 300 mg PO BEDTIME #90 tab 05/13/21 08/12/21 08/11/21 Rx esomeprazole magnesium 40 mg See Rx Instructions .ROUTE 05/18/21 08/12/21 08/11/21 Rx capsule,delayed release .COMPLEX #30 cap gemfibrozil 600 mg tablet See Rx Instructions .ROUTE 05/18/21 08/12/21 08/11/21 Rx .COMPLEX #30 tab glipizide 10 mg tablet See Rx Instructions .ROUTE 05/18/21 08/12/21 08/11/21 Rx .COMPLEX #60 tab lovastatin 20 mg tablet See Rx Instructions .ROUTE 05/18/21 08/12/21 08/11/21 Rx .COMPLEX #30 tab tramadol 50 mg tablet 50 mg PO TID PRN 30 Days #90 tab 07/07/21 08/12/21 08/11/21 Rx Allergies Allergy/AdvReac Type Severity Reaction Status Date / Time No Known Allergies Allergy Verified 08/12/21 07:47 PFSH Acute PFSH: Medical History Diabetes mellitus Generalized anxiety disorder GERD (gastroesophageal reflux disease) Hyperlipidemia Major depressive disorder, recurrent severe without psychotic features Pneumonia due to COVID-19 virus Psychiatric care Renal mass Surgical History Hx of rotator cuff surgery (~2009) Family History Family/Other Diabetes Hypertension Heart disease Social History Smoking and tobacco status: former smoker (Quit 27 years ago) Quit status (tobacco): has quit using tobacco Year quit tobacco: a long time Second hand smoke exposure: Yes Alcohol intake: never Caregiver/support person: Yes Lives independently: Yes Household members: spouse Marital status: 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 Ears : Pinnae and external canal are normal. Hearing is normal. Eyes : PERRLA, Sclera and injection are normal. No conjunctival discharge. Nose : Mucous membranes are without erythema. Throat : buccal mucosa is normal, gums are without significant recession or hypertrophy. Lungs : Equal chest rise bilaterally, no use of accessory muscles, trachea is midline. Cor : Rate and rhythm are normal. Abdomen : Soft, ND, NT, no g/r/m Extremities : No edema, no cyanosis or clubbing, dorsalis pedis pulses are present bilaterally, non-tender to palpation of calves. Upper extremities are normal bilaterally. Back : non-tender to palpation, no CVA tenderness. Neuro : CN II - XII intact, Upper and lower extremities have equal and full strength A&P Assessment and plan (1) Colon cancer screening: Status: Acute Plan Colonoscopy The risks and benefits of the procedure, including bleeding, infection, intestinal perforation requiring surgery, missed lesion, or explained to the patient. He is understanding of the risks and wishes to proceed. Attestations Medical Necessity Statement*: Patient is not staying Coding Level of Care Code Acute [facility] Fwd Diagnoses Colon cancer screening Z12.11
[2021-08-12 09:40] VITALS: BP 128/79; PULSE 64; RESP 18; TEMP 36.5; O2SAT 95
--- NOTE | 2021-08-12 16:24 | ANE.PACU2 ---
Inpatient post-anesthesia follow up: Airway intact: Yes Vital signs: Temperature 97.7 F Pulse Rate 64 Respiratory Rate 18 Blood Pressure 128/79 Pulse Oximetry 95 Oxygen Delivery Me thod Room Air Oxygen Flow Rate Fraction of Inspir ed Oxygen Hydration adequate: Yes Nausea and vomiting: No Pain level: 1 Mental status: Baseline
== END 2021-08-12 10:02 | disposition home or self-care (01) ==
PROVIDERS: PCP Nurse Practitioner Family; Visit Provider Surgery
PROC: 0DJD8ZZ Inspection of Lower Intestinal Tract, Via Natural or Artificial Opening Endoscopic (ICD-10-PCS; CPT 45378; principal; 2021-08-12 09:00)
DX: Z12.11 Encounter for screening for malignant neoplasm of colon (principal); E11.9 Type 2 diabetes mellitus without complications; Z79.84 Long term (current) use of oral hypoglycemic drugs; F41.1 Generalized anxiety disorder; K21.9 Gastro-esophageal reflux disease without esophagitis; E78.5 Hyperlipidemia, unspecified; Z87.891 Personal history of nicotine dependence; Z82.49 Family history of ischemic heart disease and other diseases of the circulatory system; Z83.3 Family history of diabetes mellitus; Z85.048 Personal history of other malignant neoplasm of rectum, rectosigmoid junction, and anus; Z90.5 Acquired absence of kidney
CPT/HCPCS: 45378; J2250; J2704; J7030

== ENCOUNTER → 2021-10-06 10:12 | Outpatient (BNVA) | payer OTHER, SELFPAY | PROVIDERS: PCP Nurse Practitioner Family; Visit Provider Urology | DX: C64.9 Malignant neoplasm of unspecified kidney, except renal pelvis (principal); E78.5 Hyperlipidemia, unspecified; E11.9 Type 2 diabetes mellitus without complications | CPT/HCPCS: 80053; 80061; 82043; 83036; 83721; 84443; 85025; 87086 ==

== ENCOUNTER 2021-10-24 11:14 | Outpatient (CLI) | payer OTHER, SELFPAY ==
--- NOTE | 2021-10-24 11:42 | XRR_ITS ---
PROCEDURE INFORMATION: Exam: XR Lumbosacral Spine Exam date and time: 10/24/2021 11:50 AM Age: 51 years old Clinical indication: Low back pain; Prior surgery; Surgery type: Kidney stent; Patient HX: HX of renal cancer; Additional info: S39.012a - strain of muscle, fascia and tendon of lower b. . . TECHNIQUE: Imaging protocol: Radiologic exam of the lumbosacral spine. Views: 2 or 3 views. COMPARISON: CR XR lumbar spine 2-3V* [id number] 04/26/2020 8:48 AM FINDINGS: Bones/joints: Mild DJD is present with small osteophytes on the vertebral bodies. Disc spaces are not significantly narrowed. There is no fracture or other acute abnormality. Soft tissues: Unremarkable. XR/XR lumbar spine 2-3V* [id number] IMPRESSION: Mild DJD. No acute abnormality.
--- NOTE | 2021-10-24 11:42 | XRR_ITS ---
PROCEDURE INFORMATION: Exam: XR Right Shoulder Exam date and time: 10/24/2021 11:50 AM Age: 51 years old Clinical indication: Pain; Shoulder; Right; Prior surgery; Surgery type: Rotator cuff; Patient HX: HX of renal cancer; Additional info: M25.511 - pain in right shoulder TECHNIQUE: Imaging protocol: Radiologic exam of the Right shoulder. Views: 2 or more views. COMPARISON: CR XR chest 2V* [id number] 03/21/2021 2:40 PM FINDINGS: Bones/joints: Normal. Soft tissues: Normal. XR/XR shoulder RT min 2V* [id number] IMPRESSION: No acute findings.
--- NOTE | 2021-10-24 11:42 | XRR_ITS ---
PROCEDURE INFORMATION: Exam: XR Thoracic Spine Exam date and time: 10/24/2021 11:50 AM Age: 51 years old Clinical indication: Pain in thoracic spine; Prior surgery; Surgery type: RT kidney stent, rotator cuff; Patient HX: HX of kidney cancer; Additional info: M54.6 - pain in thoracic spine TECHNIQUE: Imaging protocol: Radiologic exam of the thoracic spine. Views: 3 views. COMPARISON: CR XR thoracic spine 3V* [id number] 10/20/2019 9:56 AM FINDINGS: Bones/joints: Minimal DJD is present in the thoracic spine with a few small osteophytes. The disc spaces are not narrowed. There is no fracture or other acute abnormality. Soft tissues: Unremarkable. XR/XR thoracic spine 3V* [id number] IMPRESSION: Minimal DJD. No acute abnormality.
== END 2021-10-24 11:15 | disposition home or self-care (01) ==
PROVIDERS: PCP Nurse Practitioner Family; Visit Provider Nurse Practitioner Family
DX: S39.012A Strain of muscle, fascia and tendon of lower back, initial encounter (principal); M25.511 Pain in right shoulder; M54.6 Pain in thoracic spine; G89.29 Other chronic pain; X58.XXXA Exposure to other specified factors, initial encounter
CPT/HCPCS: 72072; 72100; 73030; 81003; 87086

== ENCOUNTER → 2022-01-24 09:08 | Outpatient (BNVA) | payer OTHER, SELFPAY | PROVIDERS: PCP Nurse Practitioner Family; Visit Provider Nurse Practitioner Family | DX: E11.9 Type 2 diabetes mellitus without complications (principal); N18.30 Chronic kidney disease, stage 3 unspecified; N18.9 Chronic kidney disease, unspecified; R35.0 Frequency of micturition | CPT/HCPCS: 80053; 82043; 82306; 83036; 84100; 85025; 87086 ==

== ENCOUNTER → 2022-01-30 17:05 | Outpatient (BNVA) | payer OTHER, SELFPAY | PROVIDERS: PCP Nurse Practitioner Family; Visit Provider Nurse Practitioner Family | DX: R50.9 Fever, unspecified (principal); U07.1 COVID-19; U09.9 Post COVID-19 condition, unspecified | CPT/HCPCS: 87400; 87426 ==

== ENCOUNTER → 2022-02-28 15:31 | Outpatient (BNVA) | payer OTHER, SELFPAY | PROVIDERS: PCP Nurse Practitioner Family; Visit Provider Urology | DX: N18.9 Chronic kidney disease, unspecified (principal) | CPT/HCPCS: 87086 ==

== ENCOUNTER 2022-05-24 18:02 | Emergency (ER) | payer OTHER, SELFPAY ==
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
[2022-05-24 18:09] VITALS: BP 142/91; PULSE 71; RESP 16; TEMP 36.7; O2SAT 95
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
[2022-05-24 19:53] VITALS: PULSE 75; RESP 14; O2SAT 99
== END 2022-05-24 19:53 | disposition home or self-care (01) ==
PROVIDERS: Emergency Provider Nurse Practitioner Family; PCP Nurse Practitioner Family
DX: S00.03XA Contusion of scalp, initial encounter (principal); S40.011A Contusion of right shoulder, initial encounter; S16.1XXA Strain of muscle, fascia and tendon at neck level, initial encounter; Z79.84 Long term (current) use of oral hypoglycemic drugs; E11.9 Type 2 diabetes mellitus without complications; E78.5 Hyperlipidemia, unspecified; Z87.891 Personal history of nicotine dependence; V59.40XA Driver of pick-up truck or van injured in collision with unspecified motor vehicles in traffic accident, initial encounter
CPT/HCPCS: 70450; 72125; 73030; 99284

== ENCOUNTER 2022-07-04 14:18 | Outpatient (CLI) | payer OTHER, SELFPAY ==
--- NOTE | 2022-07-04 14:30 | MR_ITS ---
WS: [id number] EXAMINATION: MR shoulder RT wo con* [id number] ORDER DATE: 07/04/2022 2:43 PM COMPARISON: 2008 HISTORY: M25.511 - Pain in right shoulder CONTRAST: None. TECHNIQUE: Axial T2 STAR, coronal proton density fat sat, sagittal T2 fat sat, sagittal proton densit y fat sat, axial proton density fat sat, coronal T2 fat sat, and coronal T1 performed. After contrast , axial T1 fat sat, coronal T1 fat sat, and sagittal T1 fat sat were performed. FINDINGS: Prior postoperative changes rotator cuff repair. Susceptibly artifact from rotator cuff repair degrad es some images. Moderate degenerative arthritis at the AC joint. Subacromial space appears preserved. Minimal edema AC joint. Supraspinatus and infraspinatus appear intact. Normal teres minor. Normal s ubscapularis. Normal biceps tendon in the bicipital groove. Normal glenoid labrum. Normal coracoid. B iceps labral anchor appears intact. Intra-articular biceps tendon appears intact. MR/MR shoulder RT wo con* [id number] IMPRESSION: 1. Prior postoperative changes rotator cuff repair. 2. Rotator cuff appears intact. Mild chronic thinning of the distal supraspina tus. 3. Mild degenerative narrowing at the AC joint with mild edema. Subacromial sp jackeline is preserved. 4. Normal biceps tendon in the bicipital groove. 5. No other suspicious findings.
== END 2022-07-04 14:19 | disposition home or self-care (01) ==
LOC: RAD 14:22
PROVIDERS: PCP Nurse Practitioner Family; Visit Provider Nurse Practitioner Family
DX: M25.511 Pain in right shoulder (principal)
CPT/HCPCS: 73221

== ENCOUNTER → 2022-08-29 12:06 | Outpatient (BNVA) | payer OTHER, SELFPAY | PROVIDERS: PCP Nurse Practitioner Family; Visit Provider Internal Medicine Nephrology | DX: N18.9 Chronic kidney disease, unspecified (principal); E11.9 Type 2 diabetes mellitus without complications; E78.5 Hyperlipidemia, unspecified; Z12.5 Encounter for screening for malignant neoplasm of prostate | CPT/HCPCS: 80053; 80061; 81003; 82043; 83036; 85025; G0103 ==

== ENCOUNTER → 2022-09-08 09:09 | Outpatient (BNVA) | payer OTHER, SELFPAY | PROVIDERS: PCP Nurse Practitioner Family; Visit Provider Nurse Practitioner Family | DX: E11.65 Type 2 diabetes mellitus with hyperglycemia (principal); K21.9 Gastro-esophageal reflux disease without esophagitis; N18.9 Chronic kidney disease, unspecified; R53.83 Other fatigue | CPT/HCPCS: 82306; 82607; 83735; 84100; 84403; 84443 ==

== ENCOUNTER → 2023-02-06 10:18 | Outpatient (BNVA) | payer OTHER, SELFPAY | PROVIDERS: PCP Nurse Practitioner Family; Visit Provider Nurse Practitioner Family | DX: E11.65 Type 2 diabetes mellitus with hyperglycemia (principal); K21.9 Gastro-esophageal reflux disease without esophagitis; U09.9 Post COVID-19 condition, unspecified; S39.012A Strain of muscle, fascia and tendon of lower back, initial encounter; M54.2 Cervicalgia; G89.29 Other chronic pain | CPT/HCPCS: 80053; 80061; 83036; 84443; 85025 ==

== ENCOUNTER → 2023-05-24 08:04 | Outpatient (BNVA) | payer OTHER, SELFPAY | PROVIDERS: PCP Nurse Practitioner Family; Visit Provider Student in an Organized Health Care Education/Training Program | DX: G56.02 Carpal tunnel syndrome, left upper limb (principal) | CPT/HCPCS: 73130 ==

== ENCOUNTER 2023-07-31 14:05 | Outpatient (CLI) | payer OTHER, SELFPAY ==
--- NOTE | 2023-07-31 14:30 | MR_ITS ---
WS: [id number] MRI BRAIN WITH AND WITHOUT CONTRAST HISTORY: G43.909 - Migraine, unspecified, not intractable, without... COMPARISON: CT head 05/24/2022 TECHNIQUE: Multiplanar imaging performed through the brain with MultiHance 20 ml's IV. No acute infarcts are seen. Jefferson-white matter differentiation is well preserved. No prior infarct. Hi ppocampal formations are negative. No susceptibility artifacts or prior lacunar infarcts. Ventricles and extra-axial spaces are normal. Clivus and pituitary gland are normal. Visualized posterior fossa and brainstem are also normal. Postcontrast images are negative for masses or vascular malformations. Dural venous sinuses are normal. Paranasal sinuses: Well aerated with no significant disease. Mastoid air cells: Normal. Calvarium and scalp: Normal. MR/MR head wo/w con [id number] IMPRESSION: 1. Normal MRI brain with contrast. 2. No acute or chronic infarct. 3. Normal hippocampal formations.
[2023-07-31] MEDS: gadobenate dimeglumine 20 mL vial IV (15:03)
== END 2023-07-31 14:06 | disposition home or self-care (01) ==
LOC: RAD 14:06
PROVIDERS: PCP Nurse Practitioner Family; Visit Provider Nurse Practitioner Family
DX: G43.909 Migraine, unspecified, not intractable, without status migrainosus (principal)
CPT/HCPCS: 70553; 80053; 80061; 82306; 82607; 83036; 83721; 83735; 84443; 85025; A9577

== ENCOUNTER → 2023-11-19 09:48 | Outpatient (BNVA) | payer OTHER, SELFPAY | PROVIDERS: PCP Nurse Practitioner Family; Visit Provider Family Medicine | DX: N18.31 Chronic kidney disease, stage 3a (principal) | CPT/HCPCS: 87086 ==

== ENCOUNTER → 2024-02-18 08:36 | Outpatient (BNVA) | payer OTHER, SELFPAY | PROVIDERS: PCP Nurse Practitioner Family; Visit Provider Nurse Practitioner Family | DX: E11.65 Type 2 diabetes mellitus with hyperglycemia (principal) | CPT/HCPCS: 80053; 80061; 82607; 83036; 83721; 84443; 85025 ==

== ENCOUNTER 2024-02-20 05:45 | Day surgery (SDC) | payer OTHER, SELFPAY ==
[2024-02-20] VITALS (13 sets, daily range): BP systolic 131–165; BP diastolic 81–94; PULSE 80–112; RESP 14–18; TEMP 36.3–37.3; O2SAT 96–100; BMI 33.4
[2024-02-20 06:11] LABS: Glucose Point of Care 220 mg/dL (70-110)
[2024-02-20] MEDS: scopolamine 1.5 Patch 1 PATCH TRANSDERMA ×2 (06:29→06:36)
[2024-02-20] MEDS: acetaminophen 1,000 MG/100 ML PIGGYBACK 400 MG IV (06:30)
[2024-02-20] MEDS: insulin regular-human 100 units/1 mL 10 UNIT IVP (06:50)
--- NOTE | 2024-02-20 07:01 | P.HP_ITS ---
Same Day Surgery H&P Indication for Procedure/HPI DATE OF PROCEDURE: February 20, 2024 CHIEF COMPLAINT/INDICATIONFOR SURGICAL PROCEDURE: Left carpal tunnel syndrome, left cubital tunnel syndrome PREOP DIAGNOSIS: Left carpal tunnel syndrome, left cubital tunnel syndrome PLANNED PROCEDURE: Operation Date: 02/20/24 07:00 Proposed Procedures p Carpal Tunnel Release(Left) - Raymon Whitfield, DO s Cubital Tunnel Release(Left) - Raymon Whitfield, DO s Ulnar Nerve Transposition(Left) - Raymon Whitfield, DO Medications/Allergies* Allergies/Adverse Reactions Allergy/AdvReac Type Severity Reaction Status Date / Time No Known Allergies Allergy Verified 02/06/24 10:11 Pertinent History/Comorbid Conditions* Medical History (Updated 01/15/24 @ 14:58 by TRENT Aguiar) Personal history of renal cancer Pneumonia due to COVID-19 virus Psychiatric care Renal mass Generalized anxiety disorder Major depressive disorder, recurrent severe without psychotic features GERD (gastroesophageal reflux disease) Diabetes mellitus Hyperlipidemia Surgical History (Updated 01/15/24 @ 10:33 by ALEKSANDR Jaffe) History of nephrectomy, right Hx of rotator cuff surgery (~2009) Family History (Updated 05/14/19 @ 07:08 by Clare Baer LPN, RT) Diabetes Family/Other Heart disease Family/Other Hypertension Family/Other Social History Smoking and tobacco/nicotine status: former use of tobacco/nicotine Quit status (tobacco/nicotine): has quit using Year quit tobacco: a long time Second hand smoke exposure: Yes Alcohol intake: current Alcohol intake frequency: few times a month Alcohol type: hard liquor Substance/Drug Use: never Caregiver/support person: Yes Lives independently: Yes Household members: spouse Marital status: 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 no thenar atrophy and no thenar muscle weakness. Full range of motion in fingers and wrist and fingers are warm and well-perfused with normal cap refill under 2 seconds. Radial pulse 2+, no intrinsic muscle weakness noted. bilateral Elbow exam--positive Tinel's test Recommendations Surgery/Procedure today Other Plans: Plan to proceed to the OR today for left carpal tunnel release, left cubital tunnel release with possible nerve transposition. Patient understands the ins and outs procedure the risk benefits complication alternatives surgery and through shared decision-making elects proceed with surgical intervention. All questions answered at this time. Coding Level of Care Code Acute Code for Chg Fwd
[2024-02-20] MEDS: ceFAZolin 2,000 mg SDV 2000 MG IVP (07:05)
--- NOTE | 2024-02-20 07:05 | ANES.PREANE2 ---
Pre-Anesthetic Assessment Height/Weight: Height 1.68 m Weight 93.894 kg Temp Pulse Resp BP Pulse Ox O2 Del Method 98.6 F 80 18 136/81 100 Room Air 02/20/24 06:02 02/20/24 06:02 02/20/24 06:02 02/20/24 06:29 02/20/24 06:02 02/20/24 06:05 Preop Diagnosis: Left carpal tunnel syndrome, left cubital tunnel syndrome Operation Date: 02/20/24 07:00 Proposed Procedures p Carpal Tunnel Release(Left) - Raymon Palmer, DO s Cubital Tunnel Release(Left) - Raymon Hopkins, DO s Ulnar Nerve Transposition(Left) - Raymon Hopkins, DO Familial anesthetic complications: None Was Beta Jill taken within 24 hours: N/A Was Clonidine taken within 24 hours: N/A Last intake: Intake Last Liquid Date 02/19/24 Last Liquid Time 22:00 Last Solid Date 02/19/24 Last Solid Time 21:00 Social No alcohol and No tobacco hx ETOH Exam alert, oriented x 3, clear to auscultation bilaterally and regular rate & rhythm Airway Mallampati: Class II Dentition: full Chronic Renal Insufficiency GI Gastroesophageal Reflux Disease Anesthetic Plan ASA status: 3 Anesthesia: General and Regional (specify below) (nerve block post-op prn) Risk of > 500 ml blood loss (7ml/kg in children): No Medications/Allergies Home Medications Medication Instructions Recorded Confirmed Last Taken Type albuterol sulfate 90 mcg/actuation 2 puff inhalation QID PRN 01/30/22 02/19/24 02/12/24 Rx aerosol inhaler (Ventolin HFA) shortness of breath or wheezing #8.5 grams cyclobenzaprine 10 mg tablet 10 mg PO TID PRN muscle spasm 10 02/06/23 02/19/24 02/12/24 Rx days #30 tabs fluticasone propionate 115 2 inh inhalation BID #12 grams 02/06/23 02/19/24 02/12/24 Rx mcg-salmeterol 21 mcg/actuation HFA inhaler (Advair HFA) pen needle, diabetic 31 gauge x #10 ea 05/11/23 02/06/24 Unknown Rx 3/16 (BD Ultra-Fine Mini Pen Needle) hydroxyzine HCl 50 mg tablet 50 mg PO QID PRN anxiety #120 tabs 05/14/23 02/19/24 Unknown Rx omega-3 acid ethyl esters 1 gram See Rx Instructions .Route 05/18/23 02/19/24 02/12/24 Rx capsule .COMPLEX #120 caps tramadol 50 mg tablet 50 mg PO TID PRN pain 30 days #90 07/05/23 02/19/24 02/19/24 Rx tabs semaglutide 0.25 mg or 0.5 mg (2 0.5 mg (0.736 mL) SUBCUT .weekly 07/09/23 02/19/24 02/12/24 Rx mg/3 mL) subcutaneous pen injector #3 mL (Ozempic) fluoxetine 40 mg capsule (Prozac) 80 mg (2 x 40 mg) PO QAM #60 caps 08/23/23 02/19/24 02/19/24 Rx propranolol 20 mg tablet 20 mg PO TID PRN anxiety #90 tabs 08/23/23 02/19/24 02/12/24 Rx trazodone 100 mg tablet 300 mg (3 x 100 mg) PO BEDTIME #90 08/23/23 02/19/24 02/12/24 Rx tabs esomeprazole magnesium 40 mg See Rx Instructions .Route 09/27/23 02/19/24 02/19/24 Rx capsule,delayed release .COMPLEX #90 caps bupropion HCl 300 mg 24 hr tablet, 300 mg PO QAM #30 tabs 10/08/23 02/19/24 02/12/24 Rx extended release (Wellbutrin XL) buspirone 10 mg tablet 20 mg (2 x 10 mg) PO TID #180 tabs 10/08/23 02/19/24 02/12/24 Rx prazosin 5 mg capsule 5 mg PO BEDTIME #30 caps 01/17/24 02/19/24 02/12/24 Rx empagliflozin 25 mg tablet See Rx Instructions .Route 02/13/24 02/19/24 02/12/24 Rx (Jardiance) .COMPLEX #90 tabs glipizide 10 mg tablet See Rx Instructions .Route 02/13/24 02/19/24 02/12/24 Rx .COMPLEX #135 tabs lovastatin 20 mg tablet See Rx Instructions .Route 02/13/24 02/19/24 02/12/24 Rx .COMPLEX #30 tabs Allergies Allergy/AdvReac Type Severity Reaction Status Date / Time No Known Allergies Allergy Verified 02/06/24 10:11 [facility] Anesthesia Medical History Personal history of renal cancer Pneumonia due to COVID-19 virus Psychiatric care Renal mass Generalized anxiety disorder Major depressive disorder, recurrent severe without psychotic features GERD (gastroesophageal reflux disease) Diabetes mellitus Hyperlipidemia Surgical History History of nephrectomy, right Hx of rotator cuff surgery (~2009) Family History Family/Other Diabetes Hypertension Heart disease Social History Smoking and tobacco/nicotine status: former use of tobacco/nicotine Quit status (tobacco/nicotine): has quit using Year quit tobacco: a long time Second hand smoke exposure: Yes Alcohol intake: current Alcohol intake frequency: few times a month Alcohol type: hard liquor Substance/Drug Use: never Caregiver/support person: Yes Lives independently: Yes Household members: spouse Marital status: 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
[2024-02-20] MEDS: lidocaine-epi 1% 20 mL INJ INJECTION (08:04)
[2024-02-20] MEDS: ROPivacaine 0.5% SDV 30 mL 150 MG INJECTION (08:04)
--- NOTE | 2024-02-20 08:05 | W.PM.BPON ---
Date of Procedure: 02/20/2024 Surgeon: Raymon Chakraborty DO Cornice Upholsterer(s): Carlos Chakraborty PA-C Procedure(s) performed: Left carpal tunnel release Left cubital tunnel release Findings of the procedure(s): Patient found to have left carpal tunnel syndrome left cubital tunnel syndrome underwent procedure as planned without issues or complications Estimated blood loss: 5 mL Specimen(s) removed: None Post-operative diagnosis: Left carpal tunnel syndrome, left cubital tunnel syndrome
--- NOTE | 2024-02-20 08:06 | P.OP_ITS ---
Operative Report Date of procedure: February 20, 2024 Surgeon: Raymon Chakraborty DO Questioned Documents Examiner: Carlos Chakraborty PA-C: PA was necessary for assistance in this case with hand positioning to execute the procedure, retraction and protection of neurovascular structures as well as to assist with wound closure and dressing application. Procedure: Preoperative diagnosis: Left carpal tunnel syndrome, left cubital tunnel syndrome postop Diagnosis: Same Procedure done: Left carpal tunnel release Left cubital tunnel tunnel release (ulnar nerve decompression at elbow) Surgeon: Raymon Chakraborty DO Estimated blood loss: 5 mL Tourniquet? 17 minutes IV fluids: 600 mL Complications: None Findings: See operative report narrative Condition: stable Disposition: same day Brief History: Patient's been seen and worked up in the outpatient setting and findings consistent with preoperative diagnosis.? Patient has left carpal tunnel syndrome as well as left?cubital tunnel syndrome which has been worked up in the outpatient setting has physical exam findings consistent with this as well as confirmatory nerve conduction/EMG nerve conduction study consistent with d iagnosis of carpal tunnel syndrome and positive cubital tunnel findings on physical examination. Patient's failed conservative treatment.? As result through shared decision making agreed to proceed with?left carpal tunnel and left?cubital tunnel release with possible ulnar nerve transposition, we talked about treatment options as far as nonoperative and operative intervention.? Understands risk benefits complication alternatives surgical nonsurgical treatment options.? Understanding his risks he agrees to proceed with surgical intervention. Understanding these risks he agrees to proceed with surgery.? Consent obtained. Procedure: Patient seen evaluate in the preoperative holding area.? Consent was reviewed and signed with patient.? Correct extremity marked.? Patient seen evaluated by anesthesia department once cleared for surgery was then taken back to the operative suite placed in supine position all bony prominences well-padded patient properly secured to bed.? Left upper extremity placed onto armboard.? Nonsterile tourniquet applied left upper arm.? Patient then underwent anesthesia per the anesthesia department.? Patient's left upper extremity was then prepped and draped in standard orthopedic fashion.? Final timeout performed.? Patient received appropriate preoperative antibiotics. Esmarch was used exsanguinate the left upper extremity.? Tourniquet was insufflated to 250 mmHg. I started with the carpal tunnel release first.? I made a standard open carpal tunnel release starting with the distal most extent in the palm at the Wolf's cardinal line and the incision line was made in line with the fourth ray and ended just distal to the wrist crease.? Sharp scalpel incision was made through skin and subcutaneous tissue I then utilizing self retainer then began to dissect with dissection scissors split longitudinally the palmar fascia.? Next I then utilizing my engineering inspection assistant Braxton retractors subsequently utilizing scalpel feathered through the palmaris brevis as well as through the transverse carpal ligament distally.? Once I encountered the floor of the transverse carpal ligament and entered into the carpal tunnel I then switched to dissection scissors.? Carefully released the distal extent of the transverse carpal ligament to the palmar fat.? Care was to protect the recurrent branch and not injured this during this part of the case.? Next I then placed a Mendon underneath the transverse carpal ligament proximally to protect the nerve in the carpal tunnel contents.? And then I subsequently under loupe magnification utilize my dissection scissors to release the transverse carpal ligament into the antebrachial fascia under direct visualization with care to keep my scissors with a curved ulnarly away from the palmar cutaneous branch.? The transverse carpal was then completely decompressed proximally and a Mendon was then placed both distally and proximally throughout the carpal tunnel and had complete decompression of the nerve.? The nerve did appear to have hourglass shape as it went through the carpal tunnel.? With significant irritation noted around the nerve.? No masses were noted within the contents of the carpal tunnel.? This completed the carpal tunnel release and then I subsequently irrigated the wound bed and placed a wet Ray-Sawyer into the incision for later closure. Next marked out the landmarks of the right elbow of the medial epicondyle and olecranon and made a curvilinear incision following the course of the ulnar nerve at the medial aspect of the elbow.? Sharp scalpel incision was made through skin and subcutaneous tissue.? Next I switched to Littler dissection scissors and spread in plane of the medial antebrachial cutaneous nerve branching which was protected throughout this part of the dissection.? Then I directly came down over the fascia and identified the 2 heads of the FCU fascia and split this right in the middle and subsequently identified my ulnar nerve distally.? This was then completely released distally under direct visualization and loupe magnification.? Once the nerve was then identified I then subsequently tracked this proximally and released this through Small's ligament as well as complete decompression of the nerve proximally all the way past the intermuscular septum.? The nerve was completely released and decompressed both proximally and distally.? I then took the elbow through range of motion and there was no instability or subluxating of the ulnar nerve.? This completed?cubital tunnel release.? ?Next the wound bed was thoroughly irrigated.? Tourniquet was deflated.? Hem ostasis was satisfactory at the?cubital tunnel release surgery site. I then inspected the carpal tunnel incision and this was found to have satisfactory hemostasis and all this was maintained through bipolar electrocautery.? At this point time I sequentially closed?cubital tunnel site with 3-0 Vicryl suture in a running nylon stitch.? ? The carpal tunnel release surgery was then closed in standard interrupted mattress fashion.? Dressing was Xeroform 4 x 4's ABD Curlex soft roll and an Micheal wrap has a bulky soft dressing. Patient was then awakened from anesthesia and taken to PACU in stable condition. Disposition: Patient taken to PACU in stable condition recovering well.? Patient will receive appropriate discharge instructions as well as pain medication postoperatively.? We will follow-up with working in the office in 2 weeks.? Patient understands agrees with current plan.? All questions answered.? He understands if any questions or concerns and contact the office for follow-up appointment.
[2024-02-20] MEDS: sodium chloride 0.9% 1,000 ML 30 ML IV (08:31)
[2024-02-20 08:38] LABS: Glucose Point of Care 224 mg/dL (70-110)
--- NOTE | 2024-02-20 08:39 | PM.PACU ---
PACU note Narrative: Patient is a 53-year-old male who just underwent a left carpal tunnel release and left cubital tunnel release. Patient transferred to PACU in stable condition. Pain is well controlled. Dressing on hand is dry and in place. Patient's fingers are warm and well-perfused. Patient can wiggle fingers. normal cap refill under 2 seconds. Patient has normal elbow range of motion. Unable to assess sensation due to residual localized anesthetic. Exam: awake Disposition: discharged
--- NOTE | 2024-02-20 09:35 | ANE.PACU2 ---
Inpatient post-anesthesia follow up: Airway intact: Yes Vital signs: Temperature 97.8 F Pulse Rate 94 Respiratory Rate 18 Blood Pressure 142/88 Pulse Oximetry 100 Oxygen Delivery Me thod Room Air Oxygen Flow Rate 6 Fraction of Inspir ed Oxygen Hydration adequate: Yes Nausea and vomiting: No Pain level: 1 Mental status: Baseline
== END 2024-02-20 09:35 | disposition home or self-care (01) ==
PROVIDERS: PCP Nurse Practitioner Family; Visit Provider Student in an Organized Health Care Education/Training Program
PROC: (CPT 64721; principal; 2024-02-20 07:00)
PROC: (CPT 64718; 2024-02-20 07:00)
DX: G56.02 Carpal tunnel syndrome, left upper limb (principal); G56.22 Lesion of ulnar nerve, left upper limb; K21.9 Gastro-esophageal reflux disease without esophagitis; E11.9 Type 2 diabetes mellitus without complications; E78.5 Hyperlipidemia, unspecified; F41.1 Generalized anxiety disorder; Z87.891 Personal history of nicotine dependence
CPT/HCPCS: 64718; 64721; 36416; 82962; J0131; J0690; J1100; J1200; J1815; J1885; J2250; J2405; J2704; J2795; J3010; J7030

== ENCOUNTER 2024-04-15 14:32 | Outpatient (CLI) | payer OTHER, SELFPAY ==
--- NOTE | 2024-04-15 14:46 | XR_ITS ---
WS: [id number] XR cervical spine 3V* [id number] REASON FOR EXAM: M54.2 - Cervicalgia FINDINGS: Mild straightening of the normal lordosis. No vertebral body compression deformity or vertebral body lesion. Minimal narrowing of the C4-C5 and C5-C6 disc space. Moderate anterior osteophytosis C2-C4. No significant listhesis. Benign pineal and choroid plexus calcifications. XR/XR cervical spine 3V* [id number] IMPRESSION: Mild changes of degenerative spondylosis as above.
--- NOTE | 2024-04-15 14:46 | XR_ITS ---
WS: [id number] XR thoracic spine 3V* [id number] REASON FOR EXAM: M54.6 - Pain in thoracic spine FINDINGS: Relatively normal thoracic spine curvatures. No significant vertebral body compression or focal lesion. Mild narrowing of the disc spaces with minimal endplate sclerosis and osteophytosis in the midthoracic spine. XR/XR thoracic spine 3V* [id number] IMPRESSION: Mild degenerative spondylosis in the thoracic spine.
--- NOTE | 2024-04-15 14:46 | XR_ITS ---
WS: [email or web address] XR lumbar spine 2-3V* [id number] REASON FOR EXAM: M54.50 - Low back pain, unspecified FINDINGS: Normal lumbar spine curvatures. No significant compression deformity or focal vertebral body lesion. Disc spaces are intact and relatively well preserved. Mild vertebral body osteophytosis L1-L4. Moderate osteophytosis at L4-L5. No spondylolysis. Mild to moderate degenerative changes in the facet joints L4-S1. No significant listhesis. XR/XR lumbar spine 2-3V* [id number] IMPRESSION: Mild to minimal degenerative spondylosis of the lumbar spine.
== END 2024-04-15 14:33 | disposition home or self-care (01) ==
PROVIDERS: PCP Nurse Practitioner Family; Visit Provider Nurse Practitioner Family
DX: M54.6 Pain in thoracic spine (principal); M47.896 Other spondylosis, lumbar region; M47.894 Other spondylosis, thoracic region; M47.897 Other spondylosis, lumbosacral region; M47.892 Other spondylosis, cervical region; R93.7 Abnormal findings on diagnostic imaging of other parts of musculoskeletal system; G89.29 Other chronic pain
CPT/HCPCS: 72040; 72072; 72100

== ENCOUNTER → 2024-04-16 09:32 | Outpatient (BNVA) | payer OTHER, SELFPAY | PROVIDERS: PCP Nurse Practitioner Family; Visit Provider Physician Assistant | DX: M25.561 Pain in right knee (principal); M25.562 Pain in left knee | CPT/HCPCS: 73560; 73565 ==

== ENCOUNTER 2024-04-30 06:55 | Outpatient (CLI) | payer OTHER, SELFPAY | END 2024-04-30 06:56 | disposition home or self-care (01) | LOC: RT 06:55 | PROVIDERS: PCP Nurse Practitioner Family; Visit Provider Nurse Practitioner Family | DX: R06.02 Shortness of breath (principal) | CPT/HCPCS: 94010; 94726; 94729 ==

== ENCOUNTER → 2024-06-04 11:01 | Outpatient (BNVA) | payer OTHER, SELFPAY | PROVIDERS: PCP Nurse Practitioner Family; Visit Provider Nurse Practitioner Family | DX: E78.5 Hyperlipidemia, unspecified (principal); E11.65 Type 2 diabetes mellitus with hyperglycemia | CPT/HCPCS: 80053; 80061; 82043; 83036; 83721; 84443; 85025; G0103 ==

== ENCOUNTER 2024-07-03 05:00 | Outpatient (RCR) | payer OTHER, SELFPAY | END 2024-08-02 23:59 | disposition home or self-care (01) | LOC: SPT 05:00 | PROVIDERS: Visit Provider Nurse Practitioner Family | DX: M25.569 Pain in unspecified knee (principal); M54.2 Cervicalgia; M25.552 Pain in left hip | CPT/HCPCS: 97110; 97162 ==

== ENCOUNTER 2024-08-03 06:30 | Outpatient (RCR) | payer OTHER, SELFPAY | END 2024-08-15 09:55 | disposition home or self-care (01) | LOC: SPT 06:30 | PROVIDERS: PCP Nurse Practitioner Family; Visit Provider Nurse Practitioner Family | DX: M25.552 Pain in left hip (principal); M54.2 Cervicalgia; M25.569 Pain in unspecified knee | CPT/HCPCS: 97110; 97164 ==

== ENCOUNTER → 2024-08-06 10:44 | Outpatient (BNVA) | payer OTHER, SELFPAY | PROVIDERS: PCP Nurse Practitioner Family; Visit Provider Nurse Practitioner Family | DX: N12 Tubulo-interstitial nephritis, not specified as acute or chronic (principal) | CPT/HCPCS: 80053; 81003; 85025; 87086 ==

== ENCOUNTER → 2024-10-02 09:49 | Outpatient (BNVA) | payer OTHER, SELFPAY | PROVIDERS: PCP Nurse Practitioner Family; Visit Provider Nurse Practitioner Family | DX: E11.65 Type 2 diabetes mellitus with hyperglycemia (principal) | CPT/HCPCS: 80053; 80061; 82306; 82607; 83036; 84443; 85025 ==

== ENCOUNTER → 2024-10-06 14:30 | Outpatient (BNVA) | payer OTHER, SELFPAY | PROVIDERS: PCP Nurse Practitioner Family; Visit Provider Nurse Practitioner Family | DX: M25.551 Pain in right hip (principal); M25.552 Pain in left hip; G89.29 Other chronic pain; R41.3 Other amnesia | CPT/HCPCS: 36415; 73523; 82542; 82746; 83520; 83735 ==

== ENCOUNTER 2024-10-15 09:09 | Outpatient (CLI) | payer OTHER, SELFPAY ==
--- NOTE | 2024-10-15 09:00 | USCV_ITS ---
Chau Mauricio Age: 53 Gender: M : 1970 Exam Date: 10/15/2024 09:19 Ordering Phys: Gibran Alegre MD Technologist: [facility] Exam Location: [facility] – [place] Indication: amnesia Risk Factors: Previous Vascular Surgery: Right Brachial BP: / Left Brachial BP: / Right Left Velocity (cm/s) Spectral Plaque Velocity (cm/s) Spectral Plaque Syst/Diast Broadening Syst/Diast Broadening 63.40/ 16.70 Prox CCA 90.90 / 17.80 67.20/ 20.60 Mid CCA 87.60 / 22.70 63.40/ 16.70 Distal CCA 66.40 / 16.50 53.60/ 14.00 Prox ICA 31.00 / 10.20 47.60/ 16.40 Mid ICA 35.00 / 16.40 50.90/ 22.90 Distal ICA 47.50 / 20.20 67.10 ECA 63.60 0.80 ICA/CCA 0.70 Antegrade Vertebral Antegrade 32.40/ 8.00 cm/s 44.20/ 17.80 cm/s Tri Subclavian Tri 43.10 95.90 CONCLUSIONS Right ICA stenosis <50%. Left ICA stenosis <50%. Normal antegrade Doppler flow noted in the right vertebral artery. Normal antegrade Doppler flow noted in the left vertebral artery. Skyler Burrows MD (Electronically Signed) Final Date: 15 October 2024 12:37 S
== END 2024-10-15 09:10 | disposition home or self-care (01) ==
LOC: RAD 09:10
PROVIDERS: PCP Nurse Practitioner Family; Visit Provider Psychiatry & Neurology Neurology
DX: R41.3 Other amnesia (principal); I65.23 Occlusion and stenosis of bilateral carotid arteries
CPT/HCPCS: 93880

== ENCOUNTER 2024-11-10 07:48 | Outpatient (CLI) | payer OTHER, SELFPAY ==
--- NOTE | 2024-11-10 08:00 | MR_ITS ---
WS: [id number] MRI RIGHT KNEE HISTORY: derangment of left knee COMPARISON: Radiograph 04/16/2024 Anterior cruciate ligament: Intact. Posterior cruciate ligament: Intact. Medial collateral ligament: Intact. Posterior lateral corner structures: Intact. Medial menisci: Intact. Normal signal, size and shape. Lateral meniscus: Intact. Normal signal, size and shape. Extensor mechanism: Distal quadriceps tendon and patellar tendons are intact. Fluid and soft tissue: No joint effusion. No Ambriz's cyst. Osseous and articular structures: Patellofemoral compartment: Very slight lateral subluxation of the patella. Moderate narrowing of the lateral patellofemoral joint space. No fracture or marrow edema. Medial compartment: Medial compartment is well-preserved. There is a tiny amount of marrow edema in the anterior nonweightbearing femoral condyle. Very minimal thinning of the cartilage. Lateral compartment: Mild narrowing of the lateral compartment. Small amount of marrow edema along the central lateral tibial plateau. Overlying cartilage is intact. There is an additional osteochondral defect involving the posterior nonweightbearing surface of the lateral femoral condyle. Osteochondral defect measures 10 x 5 mm with adjacent marrow. MR/MR knee LT wo con* [id number] IMPRESSION: 1. No ACL or meniscal tear. 2. Very slight lateral subluxation of the patella. Lateral subluxation is prob ably exacerbated by positioning of the knee. 3. Osteochondral lesion involving the nonweightbearing surface posterior later al femoral condyle. Osteochondral defect measures 10 x 5 mm. 4. Small amount of marrow edema in the anterior, nonweightbearing surface medi al femoral condyle.
== END 2024-11-10 07:49 | disposition home or self-care (01) ==
LOC: RAD 07:49
PROVIDERS: PCP Nurse Practitioner Family; Visit Provider Physician Assistant
DX: M17.0 Bilateral primary osteoarthritis of knee (principal); M93.262 Osteochondritis dissecans, left knee
CPT/HCPCS: 73721

== ENCOUNTER 2025-01-05 15:47 | Outpatient (CLI) | payer OTHER, SELFPAY ==
--- NOTE | 2025-01-05 16:00 | MR_ITS ---
WS: [id number] MRI RIGHT SHOULDER HISTORY: right shoulder pain, chronic pain, fall 2 months ago. Prior surgery. COMPARISON: 07/04/2022 TECHNIQUE: Multiplanar sequences of the shoulder joint are submitted. Status post prior rotator cuff surgery. Artifact from prior rotator cuff repair is degrading the image quality. Marked AC joint arthritis. Intermediate signal throughout the AC joint with loss of the normal configuration of the distal clavicle and acromion. Synovial thickening. There is encroachment upon the myotendinous portion of the supraspinatus with deformity. Small amount of fluid in the subacromial and hernández bdeltoid bursa. No significant subacromial impingement. Biceps tendon is present in the bicipital groove. No os acromion. Mild narrowing of the glenohumeral joint. High riding humeral head. Insertion site tear of the supraspinatus is new. There is mild supraspinatus atrophy. At the additional fraying along the superior and inferior articular surfaces. No retraction of the tendon. New edema in the infraspinatus muscle. There is fluid surrounding the humeral head. There is no soft tissue mass or ganglion identified in the supraspinatus fossa or the spinoglenoid notch. There is an interstitial tear in the distal infraspinatus tendon. Subscapularis tendon is intact. There is no edema within the supraspinatus or subscapularis muscles. Degeneration noted within the anterior and posterior labrum. There is fluid in contact with the superior labrum. This fluid extends around the joint and could be a paralabral cyst. MR/MR shoulder RT wo con* [id number] IMPRESSION: 1. Prior rotator cuff surgery with susceptibility artifact. 2. Progression of AC joint arthritis. Marked AC joint arthritis with encroachm ent upon the myotendinous portion of the supraspinatus. 3. New edema within the infraspinatus muscle and the distal interstitial tear. Edema may be post traumatic or the result of denervation. 4. New small insertion site tear of the supraspinatus tendon. 5. Mild supraspinatus atrophy. 6. Fluid in contact with the superior labrum. Suspect this may be a small para labral cyst from a labral tear. This is also new since the prior study. This co uld potentially be in contact with the suprascapular nerve resulting in denerva tion neuritis in the infraspinatus muscle.
== END 2025-01-05 15:48 | disposition home or self-care (01) ==
PROVIDERS: PCP Nurse Practitioner Family; Visit Provider Student in an Organized Health Care Education/Training Program
DX: M77.8 Other enthesopathies, not elsewhere classified (principal); M75.41 Impingement syndrome of right shoulder; M19.011 Primary osteoarthritis, right shoulder; S46.811A Strain of other muscles, fascia and tendons at shoulder and upper arm level, right arm, initial encounter; X58.XXXA Exposure to other specified factors, initial encounter; M89.8X1 Other specified disorders of bone, shoulder
CPT/HCPCS: 73221

== ENCOUNTER → 2025-01-08 09:23 | Outpatient (BNVA) | payer OTHER, SELFPAY | PROVIDERS: PCP Nurse Practitioner Family; Visit Provider Nurse Practitioner Family | DX: E11.65 Type 2 diabetes mellitus with hyperglycemia (principal); M25.50 Pain in unspecified joint | CPT/HCPCS: 80053; 80061; 82607; 83036; 83721; 83735; 84443; 85025; 85651; 86140; 86160; 86162; 86200; 86235; 86255; 86376; 86431 ==

== ENCOUNTER 2025-01-14 12:26 | Outpatient (CLI) | payer OTHER, SELFPAY ==
[2025-01-14 13:10] LABS: Glucose Urine UA 3+ (Normal); Nitrate Urine Negative (Negative); Specific Gravity, Urine 1.027 (1.005-1.030)
== END 2025-01-14 12:27 | disposition home or self-care (01) ==
PROVIDERS: PCP Nurse Practitioner Family; Visit Provider Urology
DX: R31.0 Gross hematuria (principal)
CPT/HCPCS: 81001; 87086

== ENCOUNTER → 2025-01-25 16:01 | Outpatient (BNVA) | payer OTHER, SELFPAY | PROVIDERS: PCP Nurse Practitioner Family; Visit Provider Emergency Medicine | DX: N23 Unspecified renal colic (principal); R39.9 Unspecified symptoms and signs involving the genitourinary system | CPT/HCPCS: 81000; 87086 ==

== ENCOUNTER 2025-02-05 08:22 | Day surgery (SDC) | payer OTHER, SELFPAY ==
[2025-02-05] VITALS (14 sets, daily range): BP systolic 88–146; BP diastolic 57–96; PULSE 48–90; RESP 16–18; TEMP 36.1–36.5; O2SAT 92–98; BMI 33.0
[2025-02-05] MEDS: acetaminophen 1,000 MG/100 ML PIGGYBACK 400 MG IV (09:17)
--- NOTE | 2025-02-05 09:53 | ANES.PREANE2 ---
Pre-Anesthetic Assessment Height/Weight: Height 1.73 m Weight 98.43 kg Temp Pulse Resp BP Pulse Ox O2 Del Method 97.7 F 77 16 129/85 97 Room Air 02/05/25 08:47 02/05/25 09:41 02/05/25 09:41 02/05/25 09:41 02/05/25 09:41 02/05/25 09:41 Operation Date: 02/05/25 10:05 Proposed Procedures p RIGHT Shoulder DIagnostic and Surgical Arthroscopy(Right) - Raymon Palmer, DO s Subacromial Decompression(Right) - Raymon Palmer, DO s Acromioclavicular (AC) Joint Resection(Right) - Raymon Palmer, DO s POSSIBLE Rotator Cuff Debridement versus Repair(Right) - Raymon Palmer, DO s POSSIBLE Biceps Tenotomy Versus Tenodesis(Right) - Raymon Palmer, DO s POSSIBLE Shoulder Cyst Decompression(Right) - Raymon Palmer, DO Familial anesthetic complications: None Was Beta Jill taken within 24 hours: N/A Was Clonidine taken within 24 hours: N/A Last intake: Intake Last Liquid Date 02/04/25 Last Liquid Time 20:00 Last Solid Date 02/04/25 Last Solid Time 20:00 Social No alcohol and No tobacco Exam alert, oriented x 3, clear to auscultation bilaterally and regular rate & rhythm Airway Mallampati: Class III Dentition: full Chronic Renal Insufficiency (one kidney) Metabolic Hyperlipidemia Anesthetic Plan ASA status: 3 Anesthesia: General and Regional (specify below) Risk of > 500 ml blood loss (7ml/kg in children): No Medications/Allergies Home Medications ?Medication ?Instructions ?Recorded ?Confirmed ?Last Taken ?Type cyclobenzaprine 10 mg tablet 10 mg PO TID PRN muscle spasm 10 02/06/23 02/04/25 02/12/24 Rx days #30 tabs hydroxyzine HCl 50 mg tablet 50 mg PO QID PRN anxiety #120 tabs 05/14/23 02/04/25 Unknown Rx lidocaine 5 % topical patch 1 patch topical DAILY #30 ea 06/04/24 02/04/25 Unknown Rx pen needle, diabetic 31 gauge x #100 ea 08/04/24 01/25/25 Unknown Rx 3/16 albuterol sulfate 90 mcg/actuation See Rx Instructions .Route 08/08/24 02/04/25 Unknown Rx aerosol inhaler .COMPLEX #9 grams rosuvastatin 10 mg tablet 10 mg PO DAILY 09/01/24 02/04/25 02/03/25 History bupropion HCl 300 mg 24 hr tablet, 300 mg PO QAM #30 tabs 09/15/24 02/04/25 02/03/25 Rx extended release (Wellbutrin XL) buspirone 10 mg tablet 20 mg (2 x 10 mg) PO TID #180 tabs 09/15/24 02/04/25 02/03/25 Rx fluoxetine 40 mg capsule (Prozac) 80 mg (2 x 40 mg) PO QAM #60 caps 09/15/24 02/04/25 02/03/25 Rx propranolol 20 mg tablet 20 mg PO TID PRN anxiety #90 tabs 09/15/24 02/04/25 02/03/25 Rx isosorbide mononitrate 30 mg 30 mg PO QDAY 10/02/24 02/04/25 02/03/25 History tablet,extended release 24 hr empagliflozin 25 mg tablet See Rx Instructions .Route 12/05/24 02/04/25 02/03/25 Rx (Jardiance) .COMPLEX #90 tabs prazosin 5 mg capsule 5 mg PO BEDTIME #30 caps 12/16/24 02/04/25 02/03/25 Rx amlodipine 5 mg tablet 5 mg PO DAILY 01/08/25 02/04/25 02/05/25 History tramadol 50 mg tablet 50 mg PO TID PRN pain 30 days #60 01/11/25 02/04/25 02/02/25 Rx tabs glipizide 10 mg tablet See Rx Instructions .Route 01/18/25 02/04/25 02/03/25 Rx .COMPLEX #45 tabs omega-3 acid ethyl esters 1 gram See Rx Instructions .Route 01/30/25 02/04/25 Unknown Rx capsule .COMPLEX #120 caps esomeprazole magnesium 40 mg 40 mg PO DAILY 02/04/25 02/04/25 02/05/25 History capsule,delayed release fluticasone propionate 115 See Rx Instructions .Route .COMPLEX 02/04/25 02/04/25 02/02/25 History mcg-salmeterol 21 mcg/actuation HFA inhaler (Advair HFA) semaglutide 1 mg/dose (4 mg/3 mL) 1 mg SUBCUT .Q7DAYS 02/04/25 02/04/25 01/24/25 History subcutaneous pen injector (Ozempic) trazodone 100 mg tablet 50 mg PO BEDTIME 02/04/25 02/04/25 02/03/25 History hydrocodone 5 mg-acetaminophen 325 1 tab PO Q6H PRN pain 5 days #20 02/05/25 Unknown Rx mg tablet tabs Allergies Allergy/AdvReac Type Severity Reaction Status Date / Time No Known Allergies Allergy Verified 02/04/25 08:40 Current Medications Generic Name Dose Route Start Last Admin Trade Name Freq PRN Reason Stop Dose Admin Sodium Chloride 1,000 mls @ 30 mls/hr 02/05/25 08:30 02/05/25 09:27 Sodium Chloride 0.9% IV 02/06/25 08:29 30 mls/hr .Q24H TRINY Administration PFSH Anesthesia Medical History Personal history of renal cancer Pneumonia due to COVID-19 virus Psychiatric care Renal mass Generalized anxiety disorder Major depressive disorder, recurrent severe without psychotic features GERD (gastroesophageal reflux disease) Diabetes mellitus Hyperlipidemia Surgical History History of nephrectomy, right -2023 Hx of rotator cuff surgery (~2009) Family History Family/Other Diabetes Hypertension Heart disease Social History Smoking and tobacco/nicotine status: never used tobacco/nicotine Quit status (tobacco/nicotine): has quit using Year quit tobacco: a long time Second hand smoke exposure: Yes Alcohol intake: current Alcohol intake frequency: few times a month Alcohol type: hard liquor Substance/Drug Use: never Caregiver/support person: Yes Lives independently: Yes Household members: spouse Marital status: 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 Anesthesia Procedures Nerve Block Nerve Block 1: Main Anesthesia: general anesthesia Time Out Performed: Yes Consent: requested by attending/covering physician, from patient, from other, risks and benefits reviewed and patient agrees to proceed Nerve block location: interscalene (R) Anesthesia monitors applied: pulse oximetry, EKG, BP cuff and oxygen Nerve block position: semi sitting Anesthetic Used: ropivicaine 0.5% (20 ml) and with decadron (4 mg) Ultrasound used to: recognize landmarks, visualize and ID brachial plexus, in supraclavicular region and visualize and ID interscalene groove Nerve Stimulator Used?: No Interscalene/Femoral BLK: 2 stimuplex 22 g needle used for position and inplane approach, visualize local anesthetic spread and no vascular puncture identified Injection: neg aspiration of heme Patient Tolerated Procedure: well Complications: none Additional Comments: DIagnosis is post op pain
--- NOTE | 2025-02-05 09:58 | SUR.PREOP ---
09:45 RIGHT INTRASCALENE NERVE BLOCK PERFORMED BY DOCTOR Galloway, USING0.5%ROPIVACAINE 20ml, WITH DECADRON 4mg. PT ON DEHYDRATING PRESS OPERATOR SHOWING NSR. TOLERATED PROCEDURE WELL.
[2025-02-05] MEDS: fentaNYL 50 mcg/mL INJ 2mL IVP (10:11)
[2025-02-05] MEDS: insulin regular-human 100 units/1 mL 10 UNIT IVP (10:26)
[2025-02-05] MEDS: ondansetron 2 mg/ML SDV 2 mL 4 MG IVP (10:37)
--- NOTE | 2025-02-05 11:00 | W.PM.OPSUD ---
Surgery/Procedure H&P Update DATE OF PROCEDURE: February 05, 2025 DATE H&P PERFORMED: 01/07/25 H&P UPDATE INFORMATION: I have reviewed H&P completed within last 30 days, I have examined patient prior to procedure and No changes to prior documentation PREOP DIAGNOSIS: Right shoulder rotator cuff impingement, rotator cuff tear, AC joint arthri PRIMARY INDICATION FOR PROCEDURE: Right shoulder rotator cuff impingement, rotator cuff tear, AC joint arthritis, biceps tendinitis, possible paralabral cyst PLANNED PROCEDURE: Operation Date: 02/05/25 10:05 Proposed Procedures p RIGHT Shoulder DIagnostic and Surgical Arthroscopy(Right) - Raymon Chakraborty DO s Subacromial Decompression(Right) - DO kirt Lloyd Acromioclavicular (AC) Joint Resection(Right) - DO kirt Lloyd POSSIBLE Rotator Cuff Debridement versus Repair(Right) - DO kirt Lloyd POSSIBLE Biceps Tenotomy Versus Tenodesis(Right) - DO kirt Lloyd POSSIBLE Shoulder Cyst Decompression(Right) - Raymon Chakraborty DO
[2025-02-05] MEDS: ceFAZolin 2,000 MG in sodium chloride 0.9% (plus) 50 ML 100 MG IV (11:20)
--- NOTE | 2025-02-05 13:29 | PM.PACU ---
PACU note Narrative: Patient is a 54-year-old male that just underwent a right shoulder arthroscopy with rotator cuff repair. Patient transferred to PACU in stable condition. Pain is well controlled. shoulder Dressing on , dry and in place. Patient's operative arm is in a shoulder immobilizer. Patient is awake and alert and able to respond to my questions accordingly. Patient's fingers are warm with good perfusion. Radial pulse 2+. Normal cap refill under 2 seconds. Unable to assess further range of motion in arm due to sling. Unable to assess sensation due to residual localized anesthetic. Exam: awake Disposition: discharged
--- NOTE | 2025-02-05 13:34 | W.PM.BPON ---
Date of Procedure: [February 05, 2025] Surgeon: [Dr. Chakraborty DO] Immigration Officer(s): [Carlos Chakraborty PA-C] Procedure(s) performed: [Right shoulder diagnostic and surgical arthroscopy Cyst decompression Labral debridement Subacromial decompression AC joint resection Rotator cuff repair (medium) Suture removal] Findings of the procedure(s): [Right shoulder glenohumeral joint grade II chondromalacia, prior cuff repair suture, subacromial bursitis, AC joint arthritis, partial labral tearing, PeriLabral cyst. Procedure went well and is planned.] Estimated blood loss: [15 ml] Specimen(s) removed: [Piece of suture from prior cuff repair] Post-operative diagnosis: [Right shoulder glenohumeral joint grade II chondromalacia, prior cuff repair suture, subacromial bursitis, AC joint arthritis, partial labral tearing, PeriLabral cyst.]
--- NOTE | 2025-02-05 14:02 | PM.OP ---
Operative Report Date of procedure: February 05, 2025 Surgeon: Raymon Chakraborty DO [employer] Operator: Carlos Chakraborty PA-C: PA was necessary for assistance in this case with shoulder positioning to execute the procedure, assistance with instrumentation, as well as implant fixation for rotator cuff repair, assist with wound closure and dressing application. 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, prior rotator cuff repair suture, subacromial bursitis, AC joint arthritis, partial labral tearing, paralabral cyst, rotator cuff tear Procedure done: Right?shoulder?diagnostic and surgical arthroscopy with arthroscopic rotator cuff repair (medium) Right?shoulder?diagnostic and surgical arthroscopy labral debridement Right?shoulder?diagnostic and surgical arthroscopy acromioclavicular joint resection Right?shoulder?diagnostic and surgical arthroscopy subacromial decompression (acromioplasty and bursectomy) Right shoulder diagnostic and surgical arthroscopy with paralabral cyst decompression Right shoulder diagnostic and surgical arthroscopy with prior rotator cuff suture removal Surgeon: Raymon Chakraborty DO Estimated blood loss: 15mL IV fluids: 1200 mL Implants: Arthrex 4.75 swivel lock x 2 with double loaded suture tape Arthrex?scorpion Complications: None Condition: stable Disposition: same day Brief History: Patient been seen and worked up in the outpatient setting for?right?shoulder?pain.? Pt had an MRI which showed findings below.? Patient's failed conservative treatment and has weakness.? We talked about treatment options far as nonoperative and operative intervention..? We talked about risk benefits complication alternatives surgical nonsurgical treatment options.? Understanding risk of surgery he agrees to proceed with surgical intervention.? All questions have been answered at this time.? Patient elects proceed with surgery and consent obtained in preoperative holding area for right shoulder diagnostic and surgical arthroscopy with subacromial decompression, acromioclavicular resection, possible rotator cuff debridement versus repair, possible biceps tenotomy versus tenodesis, possible cyst decompression MR/MR shoulder RT wo con* [id number] IMPRESSION: 1. Prior rotator cuff surgery with susceptibility artifact. 2. Progression of AC joint arthritis. Marked AC joint arthritis with encroachment upon the myotendinous portion of the supraspinatus. 3. New edema within the infraspinatus muscle and the distal interstitial tear. Edema may be post traumatic or the result of denervation. 4. New small insertion site tear of the supraspinatus tendon. 5. Mild supraspinatus atrophy. 6. Fluid in contact with the superior labrum. Suspect this may be a small paralabral cyst from a labral tear. This is also new since the prior study. This could potentially be in contact with the suprascapular nerve resulting in denervation neuritis in the infraspinatus muscle. Procedure: Patient seen evaluated in the preoperative holding area.? Consent reviewed and signed with patient.? Once again reviewed patient's MRI results as well as? planned surgical intervention.? Correct extremity marked.? Patient seen evaluated by anesthesia department received regional anesthesia.? Once ready for surgery was taken back to the operative suite.? Patient then subsequently underwent anesthesia per the anesthesia department was transported onto the OR table.? Patient was then placed into a lateral decubitus position with a beanbag and was appropriately secured to the bed.? All bony prominences well-padded.? Patient then had the?right?upper extremity was then prepped and draped in standard orthopedic fashion.? Patient received appropriate preoperative antibiotics.? Final timeout performed. The?right?upper extremity was then held in hanging from traction utilizing sterile technique.? Next started with standard diagnostic and surgical arthroscopy with posterior portal position introduced arthroscope into the glenohumeral joint.? Visualized the glenohumeral joint I then introduced a spinal needle within the rotator cuff interval to confirm appropriate anterior portal placement.? Once this was confirmed I then made my small incision and then introduced my arthroscopic shaver into the glenohumeral joint.? After thorough debridement of the joint was able to have direct visualization the bicep tendon was intact into the superior labrum the superior labrum immediately on the superior aspect of this labrum I utilized a blunt probe and was able to extravasate and decompress the cyst which was visible. I then subsequently placed a labral elevator just to try and probe and feel if there was any hole in the superior labrum there was no appreciable tear in the superior labrum and no unstable bicep anchor as a result the superior labral and biceps tendon anchor complex was left alone no further intervention required in this area. Next I evaluated the subscapularis tendon which was intact and no evidence of tear. ?Next there was mild labral tearing at anteriorly and posteriorly as a result utilize thermal wand just to do a gentle labral debridement. ? This point time I then visualized the glenohumeral joint.? The glenohumeral joint was found to have grade 2? chondromalacia throughout.? Axillary pouch was free of loose bodies from viewing the posterior portal.? Next a visualized the rotator cuff superiorly and there was found to be a tear full-thickness of the supraspinatus tendon.? I utilized a spinal needle to pretty this location.?? This completed my work within the glenohumeral joint all fluid was suctioned free of the joint.? ?Next I reintroduced the arthroscope posteriorly.? And went to the subacromial space.? I established my lateral working portal at the site of which my spinal needle was marking of the rotator cuff tear.? Thermal wand was then introduced laterally and then I subsequently performed extensive bursectomy of the subacromial space.? Patient had a large anterior bone spur.? At this point time I proceeded with my AC joint resection thermal wand was used and track to the anterior edge of the acromion and then tracked all the way to the AC joint.? Once identified the AC joint this was very arthritic in nature.? Thermal wand was placed anteriorly to establish appropriate plane for AC joint resection.? Once appropriate margins and anterior inferior and anterior capsule was released I then introduced arthroscopic shaver and a bur and performed AC joint resection of both the acromion to cope plane at the AC joint and a distal clavicle resection was then performed totaling 1 cm in size and was confirmed.? This completed my AC joint resection and I then introduced the arthroscopic shaver laterally while continuing to view posteriorly.? I then performed an acromioplasty to complete my subacromial decompression prior to fixing the rotator cuff tear.? Next the arthroscopic shaver was then used previous spinal needle spot that is marked the hole in the rotator cuff this was consistent with a medium sized full-thickness tear.? At this point in time there was some remanent of the suture and the previous repair site were it appears that patient has had a Mar tear. The excess suture that was in this area was subsequently removed with arthroscopic grasper. At this point in time I utilized a power rasp to decorticate the rotator cuff footprint of all fibrous tissue and scar tissue and debris to have the bleeding line for rotator cuff repair surface. At this point time it was evaluated this was a medium size rotator cuff tear and would be amendable for a single medial row and a single lateral row anchor. I plan was to do a double loaded 4.75 swivel lock on the medial row anchor. At this point time a accessory portal was made with a spinal needle to have appropriate man's angle on the medial rotator cuff footprint. At this point in time small incision was made a blunt probe was made and then the punch was then placed and a 4.75 double loaded suture tape swivel lock was advanced and had excellent fixation. At this point in time I then subsequently utilized an arthroscopic scorpion and passed this sequentially from anterior to posterior fashion having good spread throughout the rotator cuff. At this point in time these were all grabbed together out the lateral portal and then loaded into a 4.75 swivel lock. Thermal wand was used to debride just distal and lateral to the rotator cuff footprint for the lateral row anchor. Once this was isolated had good clearing of any soft tissue I then subsequently advanced a punch and appropriate depth loaded and held satisfactory tension brought the rotator cuff over with excellent repair and subsequently advance a 4.75 swivel lock to secure the rotator cuff repair and fixation. Sutures were then cut with an arthroscopic suture cutter and subsequently evaluated the rotator cuff repair.? Repair was found to be satisfactory?shoulder?was taken through range of motion and the repair moved as a unit with no evidence of loss of fixation. ?I then switched the arthroscope to the lateral portal to confirm this tension-free repair.? I took the?shoulder?through range of motion and the rotator cuff repair was stable and moved as a unit. ?Next I then introduced the arthroscopic shaver posteriorly to complete my subacromial decompression appropriate complaining all the way up to the lateral edge of the acromion.? This completed the surgery.? All fluid was suctioned from the?shoulder.? All instruments were removed.? The lateral incision was then closed with nylon stitches.? As well as the portal sites closed with portal nylon stitches.? Xeroform 4 x 4's ABD and tape was then applied to the?right?shoulder?and was placed into a?shoulder?abduction pillow sling for rotator cuff repair.? Patient was then awakened from anesthesia and then taken back to PACU in stable condition.? Patient tolerated procedure without any issues. Disposition: Patient taken back in stable condition recovering well.? Dressings on in place clean dry and intact.? Will be nonweightbearing to the?right?upper extremity.? Follow rotator cuff repair protocol.? Patient to follow-up with me in the office in 2 weeks.? Patient will receive appropriate discharge instruction as well as pain medication postoperatively.? All questions answered.? We will contact the office for any questions or concerns.
--- NOTE | 2025-02-05 15:33 | ANE.PACU2 ---
Inpatient post-anesthesia follow up: Airway intact: Yes Vital signs: Temperature 97.6 F Pulse Rate 60 Respiratory Rate 16 Blood Pressure 108/68 Pulse Oximetry 96 Oxygen Delivery Me thod Room Air Oxygen Flow Rate Fraction of Inspir ed Oxygen Hydration adequate: Yes Nausea and vomiting: No Pain level: 2 Mental status: Baseline
== END 2025-02-05 15:50 | disposition home or self-care (01) ==
PROVIDERS: PCP Nurse Practitioner Family; Visit Provider Student in an Organized Health Care Education/Training Program
PROC: (CPT 29805; principal; 2025-02-05 09:45)
PROC: (CPT 29826; 2025-02-05 09:45)
PROC: (CPT 29824; 2025-02-05 09:45)
PROC: (CPT 29827; 2025-02-05 09:45)
PROC: (CPT 29999; 2025-02-05 09:45)
PROC: (CPT 29827; 2025-02-05 09:45)
PROC: (CPT 29827; 2025-02-05 09:45)
DX: M75.41 Impingement syndrome of right shoulder (principal); M75.101 Unspecified rotator cuff tear or rupture of right shoulder, not specified as traumatic; M75.21 Bicipital tendinitis, right shoulder; M19.011 Primary osteoarthritis, right shoulder; M94.211 Chondromalacia, right shoulder; M75.51 Bursitis of right shoulder; S43.431A Superior glenoid labrum lesion of right shoulder, initial encounter; X58.XXXA Exposure to other specified factors, initial encounter; E11.22 Type 2 diabetes mellitus with diabetic chronic kidney disease; I12.9 Hypertensive chronic kidney disease with stage 1 through stage 4 chronic kidney disease, or unspecified chronic kidney disease; N18.9 Chronic kidney disease, unspecified; Z85.528 Personal history of other malignant neoplasm of kidney; F33.9 Major depressive disorder, recurrent, unspecified; E78.5 Hyperlipidemia, unspecified; Z79.82 Long term (current) use of aspirin; Z90.5 Acquired absence of kidney
CPT/HCPCS: 29827; 29826; 29824; 36416; 82962; C1713; J0131; J0169; J0690; J1100; J1815; J1885; J2250; J2405; J2704; J2795; J3010; J3490; J7030; J9999